=== PATIENT | male | born 1945 | race Caucasian/White ===

== ENCOUNTER → 2016-10-30 | Day surgery (SDC) | payer MEDICARE, OTHER ==
[~2016-10-30] VITALS: Ht 180.3 cm; Wt 95.3 kg
[~2016-10-30] MED LIST: ACET30TAB PO; ACETAMINOPH W/CODEINE #3 TAB UD PO PRN; ADUL81TA2 PO; ALLOPOW4 PO; ANOR1AER IN; AVOD0.5C PO; CIPR500T4 PO; COLA100C2 PO; CRESTOR PO; FISH120012 PO; FLEXARIL PO; GLYCOPYRROLATE INJ 0.2 MG/ML 2 ML VIAL As Ordered ONE; HYDROCHLORIZIDE PO; JANUVIA PO; K-TA10TA2 PO; LABETALOL HCL 100 MG/20 ML VIAL As Ordered ONE; LIDOCAINE W/EPINEPHRINE 1% 20ML VIAL As Ordered ONE; LISIPOW PO; LR 1,000 ML IV SCH; MAGNESIUM PO; METFORMIN PO; MIDAZOLAM INJ 2 MG/2 ML VIAL (J2250) As Ordered ONE; NEOSTIGMINE 1MG/ML 5 ML SYRINGE (J2710) As Ordered ONE; NIASPAN PO; ONDANSETRON 4MG/2ML VIAL (J2405) As Ordered ONE; ONDANSETRON 4MG/2ML VIAL (J2405) IV PRN; PERC5TAB6 PO; PERCOCET 5MG/325MG TAB PO PRN; PROPOFOL 200 MG/20 ML VIAL As Ordered ONE; ROCURONIUM BROMIDE 50 MG/5 ML VIAL As Ordered ONE; SENOKOT PO; SPIRIVA HANDIHALER INH; VENTAER INH; VIAG100T PO; VICO5TAB PO; dexameTHASONE 4 MG/ML 1ML VIAL (J1100) As Ordered ONE; fentaNYL 100 MCG/2 ML INJECTION (J3010) As Ordered ONE; fentaNYL 100 MCG/2 ML INJECTION (J3010) IV PRN
[2016-10-30 17:35] VITALS: BP 122/60
--- NOTE | 2016-10-31 19:41 | RO ---
DATE OF PROCEDURE: 10/30/2016 PREOPERATIVE DIAGNOSIS: Oral leukoplakia. POSTOPERATIVE DIAGNOSIS: Oral leukoplakia. OPERATIVE PROCEDURE: CO2 laser vaporization lesion left buccal area. SURGEON: Dr. Mode Covarrubias BUILDING MECHANIC: ANESTHESIA: FINDINGS: There was leukoplakia/erythroplasia in the buccal area on the right side, which extended a distance of 4 cm diameter and extended to the oral commissure on that side, the mucocutaneous border and then up to the upper and lower lip. 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 DESCRIPTION OF PROCEDURE: Under general anesthesia, an oral packing was placed. I did use drapes over the eyes and the face with wet drapes. Then, using a CO2 laser at a setting of 5 navarro, I vaporized the area. Patient tolerated the procedure well. The oral pack was removed. Patient was extubated and transferred to the recovery room in excellent condition.
== END | disposition home or self-care (01) ==
LOC: M SDC 09:03
PROVIDERS: ATTEND Otolaryngology
DX: K13.21 Leukoplakia of oral mucosa, including tongue (principal); I10 Essential (primary) hypertension; J44.9 Chronic obstructive pulmonary disease, unspecified; F17.210 Nicotine dependence, cigarettes, uncomplicated; E11.9 Type 2 diabetes mellitus without complications; Z79.82 Long term (current) use of aspirin; Z79.899 Other long term (current) drug therapy
CPT/HCPCS: 40820; J1100; J2250; J2405; J2710; J3010

== ENCOUNTER 2017-01-03 17:59 | Emergency (ER) | payer MEDICARE, OTHER ==
[~2017-01-03] VITALS: Ht 180.3 cm; Wt 95.3 kg
[~2017-01-03 17:59] MED LIST changes: -ACETAMINOPH W/CODEINE #3 TAB UD PO PRN; -GLYCOPYRROLATE INJ 0.2 MG/ML 2 ML VIAL As Ordered ONE; -LABETALOL HCL 100 MG/20 ML VIAL As Ordered ONE; -LIDOCAINE W/EPINEPHRINE 1% 20ML VIAL As Ordered ONE; -LR 1,000 ML IV SCH; -MIDAZOLAM INJ 2 MG/2 ML VIAL (J2250) As Ordered ONE; -NEOSTIGMINE 1MG/ML 5 ML SYRINGE (J2710) As Ordered ONE; -ONDANSETRON 4MG/2ML VIAL (J2405) As Ordered ONE; -ONDANSETRON 4MG/2ML VIAL (J2405) IV PRN; -PERCOCET 5MG/325MG TAB PO PRN; -PROPOFOL 200 MG/20 ML VIAL As Ordered ONE; -ROCURONIUM BROMIDE 50 MG/5 ML VIAL As Ordered ONE; -dexameTHASONE 4 MG/ML 1ML VIAL (J1100) As Ordered ONE; -fentaNYL 100 MCG/2 ML INJECTION (J3010) As Ordered ONE; -fentaNYL 100 MCG/2 ML INJECTION (J3010) IV PRN
[2017-01-03] MEDS ORDERED: FARX1TAB2 PO (18:10)
[2017-01-03] MEDS ORDERED: BAYE325T12 PO (18:10)
[2017-01-03] MEDS ORDERED: NS 1,000 ML IV ONE (20:30)
[2017-01-03] MEDS ORDERED: METOCLOPRAMIDE INJ 10MG/2ML VIAL (J2765) IV ONE (20:30)
[2017-01-03] MEDS ORDERED: ACETAMINOPHEN 325 MG TAB PO ONE (20:30)
[2017-01-03 21:02] LABS: BASO % 0.6 % (0.0-1.0); EOS # 0.2 K/mm3 (0.0-0.50); EOS % 2.9 % (0.0-3.0); LARGE UNSTAINED CELL # 0.2 K/mm3 (0.0-0.4); LARGE UNSTAINED CELL % 2.2 % (0.0-4.0); LYMPH # 2.5 K/mm3 (1.5-4.5); LYMPH % 28.1 % (24.0-44.0); MEAN CORPUSCULAR HEMOGLOBIN 31.3 pg (27.0-33.0); MEAN CORPUSCULAR VOLUME 92.1 fl (80.0-96.0); MONO # 0.5 K/mm3 (0.0-0.8); MONO % 6.6 % (0.0-5.0); NEUTROPHILS # 4.8 K/mm3 (1.8-7.7); NEUTROPHILS % 59.5 % (36.0-66.0); PLATELET COUNT, AUTOMATED 194 k/mm3 (150-450); RED CELL DISTRIBUTION WIDTH 14.5 % (11.5-14.5); WHITE BLOOD COUNT 8.1 K/mm3 (4.0-10.0)
[2017-01-03 21:11] LABS: INR 0.95
--- NOTE | 2017-01-03 21:23 | REP ---
Clinical: Headache . Comparison: 05/12/2015 . Findings: The ventricles, sulci, and cisterns are normal in position and appearance. Lamas-white differentiation is maintained. No acute intracranial hemorrhage, mass/mass effect, pathology or trauma/injury. No evidence for acute infarction. No extra-axial fluid collection. Calvarium is intact. Paranasal sinuses and mastoid air cells are clear. Impression: Normal noncontrast head CT. No evidence for acute intracranial pathology or trauma/injury. Signed by Jack Young MD 01/03/2017 09:14 P
[2017-01-03 21:31] LABS: ANION GAP 10 MEQ/L (8-16); BLOOD UREA NITROGEN 18 MG/DL (7-18); CALCIUM LEVEL 9.5 MG/DL (8.8-10.2); CARBON DIOXIDE LEVEL 28 MEQ/L (21-32); CHLORIDE LEVEL 100 MEQ/L (98-107); CREATININE FOR GFR 1.08 MG/DL (0.70-1.30); GLOMERULAR FILTRATION RATE > 60.0 (>49); GLUCOSE, FASTING 142 MG/DL (80-110); POTASSIUM SERUM 4.3 MEQ/L (3.5-5.1); SODIUM LEVEL 138 MEQ/L (136-145)
[2017-01-03] MEDS ORDERED: TETRACAINE 0.5% OPHTH SOLN 4ML OS ONE (22:00)
[2017-01-03] MEDS ORDERED: HYDROmorphone HCL 1 MG/ML SYRINGE (J1170) IV ONE (23:00)
[2017-01-03 23:13] LABS: ERYTHROCYTE SEDIMENTATION RATE 6 mm/hr (0-20)
[2017-01-03 23:47] VITALS: BP 118/68
== END 2017-01-03 23:52 | disposition home or self-care (01) ==
LOC: M ED 19:45
DX: R51 Headache (principal); H53.8 Other visual disturbances; E11.9 Type 2 diabetes mellitus without complications; I10 Essential (primary) hypertension; F17.210 Nicotine dependence, cigarettes, uncomplicated; Z88.5 Allergy status to narcotic agent; Z91.018 Allergy to other foods; Z79.899 Other long term (current) drug therapy; Z79.84 Long term (current) use of oral hypoglycemic drugs; Z79.82 Long term (current) use of aspirin
CPT/HCPCS: 70450; 80048; 85025; 85610; 85652; 85730; 96361; 96374; 96375; 99283; J1170; J2765

== ENCOUNTER → 2017-01-15 | Outpatient (REF) | payer MEDICARE, OTHER ==
[~2017-01-15] MED LIST changes: +BAYE325T12 PO; +FARX1TAB2 PO
== END ==
LOC: M SFHCCLAY 10:54
PROVIDERS: ATTEND Nurse Practitioner
DX: E11.9 Type 2 diabetes mellitus without complications (principal)

== ENCOUNTER → 2017-01-22 | Outpatient (REF) | payer MEDICARE, OTHER ==
[2017-01-22 12:07] LABS: ALBUMIN 4.4 GM/DL (3.2-5.2); ALBUMIN/GLOBULIN RATIO 1.38 (1.00-1.93); ALKALINE PHOSPHATASE 77 U/L (45-117); ALT/SGPT 23 U/L (12-78); ANION GAP 9 MEQ/L (8-16); AST/SGOT 66 U/L (15-37); BILIRUBIN,TOTAL 0.4 MG/DL (0.2-1.0); BLOOD UREA NITROGEN 19 MG/DL (7-18); CALCIUM LEVEL 9.5 MG/DL (8.8-10.2); CARBON DIOXIDE LEVEL 27 MEQ/L (21-32); CHLORIDE LEVEL 99 MEQ/L (98-107); CHOLESTEROL LEVEL 106 MG/DL (<200); CREATININE FOR GFR 1.05 MG/DL (0.70-1.30); GLOMERULAR FILTRATION RATE > 60.0 (>49); GLUCOSE, FASTING 194 MG/DL (80-110); POTASSIUM SERUM 4.2 MEQ/L (3.5-5.1); SODIUM LEVEL 135 MEQ/L (136-145); TOTAL PROTEIN 7.6 GM/DL (6.4-8.2); TRIGLYCERIDES LEVEL 166 MG/DL (<150); URIC ACID 5.3 MG/DL (3.5-7.2)
== END ==
LOC: M SFHCCLAY 07:23
PROVIDERS: ATTEND Nurse Practitioner
DX: E11.9 Type 2 diabetes mellitus without complications (principal); Z12.5 Encounter for screening for malignant neoplasm of prostate
CPT/HCPCS: 80053; 80061; 83036; 84550; G0103; G0463

== ENCOUNTER → 2017-04-24 | Outpatient (REF) | payer MEDICARE, OTHER ==
[~2017-04-24] MED LIST changes: -FARX1TAB2 PO; +FARX1TAB3 PO; +PERC5TAB12 PO; -PERC5TAB6 PO
[2017-04-24 12:39] LABS: ALBUMIN 4.2 GM/DL (3.2-5.2); ALBUMIN/GLOBULIN RATIO 1.27 (1.00-1.93); ALKALINE PHOSPHATASE 74 U/L (45-117); ALT/SGPT 30 U/L (12-78); ANION GAP 9 MEQ/L (8-16); AST/SGOT 49 U/L (15-37); BILIRUBIN,TOTAL 0.6 MG/DL (0.2-1.0); BLOOD UREA NITROGEN 21 MG/DL (7-18); CALCIUM LEVEL 9.6 MG/DL (8.8-10.2); CARBON DIOXIDE LEVEL 26 MEQ/L (21-32); CHLORIDE LEVEL 100 MEQ/L (98-107); CREATININE FOR GFR 1.06 MG/DL (0.70-1.30); GLOMERULAR FILTRATION RATE > 60.0 (>49); GLUCOSE, FASTING 177 MG/DL (80-110); POTASSIUM SERUM 4.4 MEQ/L (3.5-5.1); SODIUM LEVEL 135 MEQ/L (136-145); TOTAL PROTEIN 7.5 GM/DL (6.4-8.2)
== END ==
LOC: M SFHCCLAY 07:28
PROVIDERS: ATTEND Nurse Practitioner
DX: E11.9 Type 2 diabetes mellitus without complications (principal)
CPT/HCPCS: 80053; 83036; 94010; G0463

== ENCOUNTER → 2017-07-19 | Outpatient (REF) | payer MEDICARE, OTHER ==
[2017-07-19 14:29] LABS: ALBUMIN 4.1 GM/DL (3.2-5.2); ALBUMIN/GLOBULIN RATIO 1.28 (1.00-1.93); ALKALINE PHOSPHATASE 71 U/L (45-117); ALT/SGPT 27 U/L (12-78); ANION GAP 7 MEQ/L (8-16); AST/SGOT 35 U/L (15-37); BILIRUBIN,TOTAL 0.4 MG/DL (0.2-1.0); BLOOD UREA NITROGEN 14 MG/DL (7-18); CALCIUM LEVEL 9.3 MG/DL (8.8-10.2); CARBON DIOXIDE LEVEL 27 MEQ/L (21-32); CHLORIDE LEVEL 102 MEQ/L (98-107); CHOLESTEROL LEVEL 92 MG/DL (<200); CREATININE FOR GFR 0.95 MG/DL (0.70-1.30); GLOMERULAR FILTRATION RATE > 60.0 (>49); GLUCOSE, FASTING 168 MG/DL (80-110); POTASSIUM SERUM 4.3 MEQ/L (3.5-5.1); SODIUM LEVEL 136 MEQ/L (136-145); TOTAL PROTEIN 7.3 GM/DL (6.4-8.2); TRIGLYCERIDES LEVEL 96 MG/DL (<150)
== END ==
LOC: M SFHCCLAY 07:33
PROVIDERS: ATTEND Nurse Practitioner
DX: E11.9 Type 2 diabetes mellitus without complications (principal)

== ENCOUNTER 2017-09-20 12:37 | Day surgery (SDC) | payer MEDICARE, OTHER ==
[~2017-09-20] VITALS: Ht 180.3 cm; Wt 93.9 kg
[2017-09-20] MEDS ORDERED: LR 1,000 ML IV ONE (13:00)
[2017-09-20] MEDS ORDERED: MIDAZOLAM INJ 2 MG/2 ML VIAL (J2250) As Ordered ONE (14:48)
[2017-09-20] MEDS ORDERED: fentaNYL 100 MCG/2 ML INJECTION (J3010) As Ordered ONE (14:48)
[2017-09-20] MEDS ORDERED: ONDANSETRON 4MG/2ML VIAL (J2405) As Ordered ONE (14:48)
[2017-09-20] MEDS ORDERED: LIDOCAINE 2% INJ 100 MG/5 ML SDV (FOR ANES.) As Ordered ONE (14:48)
[2017-09-20] MEDS ORDERED: PROPOFOL 200 MG/20 ML VIAL As Ordered ONE (14:48)
[2017-09-20] MEDS ORDERED: METOCLOPRAMIDE INJ 10MG/2ML VIAL (J2765) As Ordered ONE (14:48)
[2017-09-20] MEDS ORDERED: LR 1,000 ML IV SCH ×2 (15:00→15:15)
[2017-09-20] MEDS ORDERED: NORCO, ANEXSIA 5/325MG TABLET (HYDROcodone/ACETAMINOPHEN) PO PRN (15:15)
[2017-09-20] MEDS ORDERED: ONDANSETRON 4MG/2ML VIAL (J2405) IV PRN (15:15)
[2017-09-20] MEDS ORDERED: MEPERIDINE INJ 25 MG/ML VIAL (J2175) IV PRN (15:15)
[2017-09-20] MEDS ORDERED: METOCLOPRAMIDE INJ 10MG/2ML VIAL (J2765) IV PRN (15:15)
[2017-09-20] MEDS ORDERED: fentaNYL 100 MCG/2 ML INJECTION (J3010) IV PRN (15:15)
[2017-09-20] MEDS ORDERED: PERCOCET 5MG/325MG TAB PO PRN (15:15)
[2017-09-20 16:20] VITALS: BP 126/65
--- NOTE | 2017-09-21 11:09 | RO ---
DATE OF PROCEDURE: 09/20/2017 PREPROCEDURE DIAGNOSIS: Oral leukoplakia. POSTPROCEDURE DIAGNOSIS: Oral leukoplakia. PROCEDURE: CO2 laser treatment leukoplakia. SURGEON: Dr. Mode Covarrubias. SUPERVISOR PUMPING: ANESTHESIA: General. FINDINGS: There was a leukoplakia in the buccal area. There was erythroplasia around the corner of the mouth on the left side, and on that left side, over the alveolus posteriorly, in the retromolar area. There was some erythroplasia in the gingiva buccal itself that is on the right side. DESCRIPTION OF PROCEDURE: Under general anesthesia with the patient intubated with a laser 2, the patient was draped in the usual manner as for laser. With the CO2 laser on the setting of 10 navarro continuous, vaporized these areas. The patient tolerated the procedure well. No bleeding. The patient was extubated and transferred to the recovery room in excellent condition.
== END 2017-09-20 16:21 | disposition home or self-care (01) ==
LOC: M SDC 12:37
PROVIDERS: ATTEND Otolaryngology
DX: K13.21 Leukoplakia of oral mucosa, including tongue (principal); I10 Essential (primary) hypertension; E11.9 Type 2 diabetes mellitus without complications; E78.5 Hyperlipidemia, unspecified; M10.9 Gout, unspecified; J44.9 Chronic obstructive pulmonary disease, unspecified; M19.90 Unspecified osteoarthritis, unspecified site; Z79.899 Other long term (current) drug therapy; Z79.82 Long term (current) use of aspirin; Z79.84 Long term (current) use of oral hypoglycemic drugs; F17.210 Nicotine dependence, cigarettes, uncomplicated; Z88.5 Allergy status to narcotic agent; Z91.018 Allergy to other foods
CPT/HCPCS: 40820; J2250; J2405; J2765; J3010

== ENCOUNTER → 2017-10-22 | Outpatient (REF) | payer MEDICARE, OTHER ==
[2017-10-22 11:55] LABS: ALBUMIN 4.2 GM/DL (3.2-5.2); ALBUMIN/GLOBULIN RATIO 1.14 (1.00-1.93); ALKALINE PHOSPHATASE 77 U/L (45-117); ALT/SGPT 25 U/L (12-78); ANION GAP 8 MEQ/L (8-16); AST/SGOT 50 U/L (7-37); BILIRUBIN,TOTAL 0.6 MG/DL (0.2-1.0); BLOOD UREA NITROGEN 16 MG/DL (7-18); CALCIUM LEVEL 9.5 MG/DL (8.8-10.2); CARBON DIOXIDE LEVEL 27 MEQ/L (21-32); CHLORIDE LEVEL 100 MEQ/L (98-107); CHOLESTEROL LEVEL 126 MG/DL (<200); CHOLESTEROL RISK RATIO 3.705 (<5); CREATININE FOR GFR 1.04 MG/DL (0.70-1.30); GLOMERULAR FILTRATION RATE > 60.0 (>49); GLUCOSE, FASTING 204 MG/DL (80-110); HDL CHOLESTEROL 34 MG/DL (>40); LDL CHOLESTEROL 43.2 MG/DL (<100); NON-HDL-C 92 MG/DL; POTASSIUM SERUM 4.6 MEQ/L (3.5-5.1); SODIUM LEVEL 135 MEQ/L (136-145); TOTAL PROTEIN 7.9 GM/DL (6.4-8.2); TRIGLYCERIDES LEVEL 244 MG/DL (<150)
[2017-10-22 14:01] LABS: ESTIMATED AVERAGE GLUCOSE 192 MG/DL (60-110); HEMOGLOBIN A1c 8.3 %
== END ==
LOC: M SFHCCLAY 07:59
DX: E11.9 Type 2 diabetes mellitus without complications (principal)
CPT/HCPCS: 80053

== ENCOUNTER 2017-11-02 11:04 | Inpatient (IN) | payer MEDICARE, OTHER ==
[2017-11-02 11:37] LABS: BASO # 0.1 10^3/uL (0.0-0.2); BASO % 0.3 % (0.0-1.0); EOS # 0.2 10^3/uL (0.0-0.50); EOS % 0.7 % (0.0-3.0); HEMATOCRIT 49.2 % (42.0-52.0); HEMOGLOBIN 16.9 g/dl (14.0-18.0); IMMATURE GRANULOCYTE # 0.1 10^3/uL (0-0); IMMATURE GRANULOCYTE % 0.6 % (0-0); LYMPH # 1.6 10^3/uL (1.5-4.5); LYMPH % 6.5 % (24.0-44.0); MEAN CORPUSCULAR HEMOGLOBIN 31.1 pg (27.0-33.0); MEAN CORPUSCULAR HGB CONC 34.3 g/dl (32.0-36.5); MEAN CORPUSCULAR VOLUME 90.4 fl (80.0-96.0); MONO # 1.2 10^3/uL (0.0-0.8); MONO % 5.2 % (0.0-5.0); NEUTROPHILS # 20.7 10^3/uL (1.8-7.7); NEUTROPHILS % 86.7 % (36.0-66.0); PLATELET COUNT, AUTOMATED 218 10^3/uL (150-450); RED BLOOD COUNT 5.44 10^6/uL (4.30-6.10); RED CELL DISTRIBUTION WIDTH 13.8 % (11.5-14.5); WHITE BLOOD COUNT 23.9 10^3/uL (4.0-10.0)
[2017-11-02] MEDS: NS 1,000 ML IV ×3 (11:54→22:43)
[2017-11-02 11:56] LABS: INR 0.94; PROTHROMBIN TIME 12.7 SECONDS (12.4-14.5)
[2017-11-02 12:05] LABS: ALBUMIN 3.8 GM/DL (3.2-5.2); ALBUMIN/GLOBULIN RATIO 1.03 (1.00-1.93); ALKALINE PHOSPHATASE 66 U/L (45-117); ALT/SGPT 22 U/L (12-78); ANION GAP 10 MEQ/L (8-16); AST/SGOT 57 U/L (7-37); BILIRUBIN,DIRECT < 0.1 MG/DL (0.0-0.2); BILIRUBIN,TOTAL 0.3 MG/DL (0.2-1.0); BLOOD UREA NITROGEN 19 MG/DL (7-18); CALCIUM LEVEL 9.1 MG/DL (8.8-10.2); CARBON DIOXIDE LEVEL 24 MEQ/L (21-32); CHLORIDE LEVEL 100 MEQ/L (98-107); CK-MB VALUE MASS 3.2 NG/ML (0.0-3.6); CPK CREATINE PHOSPHOKINASE 119 U/L (39-308); GLOMERULAR FILTRATION RATE > 60.0 (>49); GLUCOSE, FASTING 203 MG/DL (80-110); LIPASE 104 U/L (73-393); MB/CK RELATIVE INDEX 2.68 (< OR =4); POTASSIUM SERUM 4.2 MEQ/L (3.5-5.1); SODIUM LEVEL 134 MEQ/L (136-145); TOTAL PROTEIN 7.5 GM/DL (6.4-8.2); TROPONIN I < 0.02 NG/ML (< 0.10)
[2017-11-02] MEDS ORDERED: ISOVUE-370 76% 100ML VIAL (Q9967) As Ordered (12:12)
[2017-11-02] MEDS: CIPROFLOXACIN 400 MG in APPROPRIATE DILUENT 1 EA IV (13:50)
[2017-11-02] MEDS: KETOROLAC 30 MG/ML VIAL (J1885) IV (14:29)
[2017-11-02] MEDS: metroNIDAZOLE 500 MG in APPROPRIATE DILUENT 1 EA IV ×2 (15:17→22:51)
[2017-11-02] MEDS ORDERED: ACETAMINOPHEN TAB 650MG DOSE (2X325MG) PO (17:15)
[2017-11-02] MEDS ORDERED: IPRATROPIUM 0.5MG/ALBUTEROL 2.5MG INH SOL UD 3ML (DUONEB)(J7620) NEB (17:15)
[2017-11-02] MEDS ORDERED: ONDANSETRON 4MG/2ML VIAL (J2405) IV (17:15)
[2017-11-02] MEDS ORDERED: GLUCAGON FOR INJ 1 MG VIAL (J1610) SC (17:15)
[2017-11-02] MEDS ORDERED: DEXTROSE 50% 50 ML SYRINGE IV (17:15)
[2017-11-02] MEDS ORDERED: CYCLOBENZAPRINE 10 MG TAB PO (17:15)
[2017-11-02] MEDS ORDERED: GLUCOSE 4 GM CHEW TABLET PO (17:15)
[2017-11-02] MEDS: HumaLOG INSULIN (NovoLOG) PER UNIT SC ×2 (17:30→22:50)
[2017-11-02 17:52] LABS: REASON FOR REVIEW COMPREHENSIVE REVIEW; SLIDE REVIEW Report; SOURCE PERIPHERAL SMEAR
[2017-11-02] MEDS: DOCUSATE SODIUM 100 MG CAP PO (22:50)
[2017-11-03] MEDS: CIPROFLOXACIN 400 MG in APPROPRIATE DILUENT 1 EA IV ×2 (01:51→14:28)
[2017-11-03] MEDS: KETOROLAC 30 MG/ML VIAL (J1885) IV ×3 (01:52→20:33)
[2017-11-03 02:13] LABS: BEDSIDE GLUCOSE 262 MG/DL (80-115)
[2017-11-03] MEDS: metroNIDAZOLE 500 MG in APPROPRIATE DILUENT 1 EA IV ×3 (06:02→23:16)
[2017-11-03 06:46] LABS: BASO % 0.5 % (0.0-1.0); EOS # 0.3 10^3/uL (0.0-0.50); EOS % 4.1 % (0.0-3.0); HEMATOCRIT 37.9 % (42.0-52.0); IMMATURE GRANULOCYTE % 0.2 % (0-0); LYMPH # 1.4 10^3/uL (1.5-4.5); LYMPH % 17.7 % (24.0-44.0); MEAN CORPUSCULAR HEMOGLOBIN 31.5 pg (27.0-33.0); MEAN CORPUSCULAR VOLUME 92.4 fl (80.0-96.0); MONO # 0.5 10^3/uL (0.0-0.8); MONO % 6.2 % (0.0-5.0); NEUTROPHILS # 5.7 10^3/uL (1.8-7.7); NEUTROPHILS % 71.3 % (36.0-66.0); PLATELET COUNT, AUTOMATED 151 10^3/uL (150-450); RED CELL DISTRIBUTION WIDTH 13.6 % (11.5-14.5)
[2017-11-03 06:53] LABS: HEMOGLOBIN 12.9 g/dl (14.0-18.0)
[2017-11-03 07:08] LABS: ALBUMIN 3.3 GM/DL (3.2-5.2); ALBUMIN/GLOBULIN RATIO 1.14 (1.00-1.93); ALKALINE PHOSPHATASE 54 U/L (45-117); ALT/SGPT 19 U/L (12-78); ANION GAP 6 MEQ/L (8-16); AST/SGOT 42 U/L (7-37); BILIRUBIN,TOTAL 0.4 MG/DL (0.2-1.0); BLOOD UREA NITROGEN 17 MG/DL (7-18); CALCIUM LEVEL 8.3 MG/DL (8.8-10.2); CARBON DIOXIDE LEVEL 28 MEQ/L (21-32); CHLORIDE LEVEL 102 MEQ/L (98-107); CREATININE FOR GFR 1.08 MG/DL (0.70-1.30); GLOMERULAR FILTRATION RATE > 60.0 (>49); GLUCOSE, FASTING 187 MG/DL (80-110); SODIUM LEVEL 136 MEQ/L (136-145); TOTAL PROTEIN 6.2 GM/DL (6.4-8.2)
[2017-11-03] MEDS: IPRATROPIUM 0.5MG/ALBUTEROL 2.5MG INH SOL UD 3ML (DUONEB)(J7620) NEB ×3 (07:51→20:00)
[2017-11-03] MEDS: TIOTROPIUM INHALER/CAPSULE (SPIRIVA) INH (07:51)
[2017-11-03] MEDS: HumaLOG INSULIN (NovoLOG) PER UNIT SC ×4 (08:32→21:00)
[2017-11-03] MEDS: ROSUVASTATIN 10 MG TAB (CRESTOR) PO (08:43)
[2017-11-03] MEDS: LISINOPRIL 5 MG TAB PO (08:43)
[2017-11-03] MEDS: ALLOPURINOL 300 MG TAB PO (08:43)
[2017-11-03] MEDS: ASPIRIN ENTERIC 325 MG TAB PO (08:43)
[2017-11-03] MEDS: DOCUSATE SODIUM 100 MG CAP PO ×2 (08:43→20:32)
[2017-11-03] MEDS: PANTOPRAZOLE 40MG TAB (PROTONIX) PO (08:43)
[2017-11-03] MEDS: hydroCHLOROthiazide 25 MG TAB PO (08:44)
[2017-11-03] MEDS: NS 1,000 ML IV ×3 (11:52→23:16)
[2017-11-03 21:30] LABS: BEDSIDE GLUCOSE 135 MG/DL (80-115)
[2017-11-03 21:30] LABS: BEDSIDE GLUCOSE 281 MG/DL (80-115)
[2017-11-03 21:30] LABS: BEDSIDE GLUCOSE 172 MG/DL (80-115)
[2017-11-04] MEDS: IPRATROPIUM 0.5MG/ALBUTEROL 2.5MG INH SOL UD 3ML (DUONEB)(J7620) NEB ×4 (02:00→22:24)
[2017-11-04] MEDS: CIPROFLOXACIN 400 MG in APPROPRIATE DILUENT 1 EA IV ×2 (02:29→14:27)
[2017-11-04] MEDS: metroNIDAZOLE 500 MG in APPROPRIATE DILUENT 1 EA IV ×3 (06:08→22:42)
[2017-11-04 06:33] LABS: BASO % 0.5 % (0.0-1.0); EOS # 0.4 10^3/uL (0.0-0.50); EOS % 4.8 % (0.0-3.0); HEMATOCRIT 39.1 % (42.0-52.0); HEMOGLOBIN 13.2 g/dl (14.0-18.0); IMMATURE GRANULOCYTE % 0.4 % (0-0); LYMPH # 1.5 10^3/uL (1.5-4.5); LYMPH % 19.6 % (24.0-44.0); MEAN CORPUSCULAR HEMOGLOBIN 31.1 pg (27.0-33.0); MEAN CORPUSCULAR HGB CONC 33.8 g/dl (32.0-36.5); MEAN CORPUSCULAR VOLUME 92.2 fl (80.0-96.0); MONO # 0.5 10^3/uL (0.0-0.8); MONO % 6.6 % (0.0-5.0); NEUTROPHILS # 5.2 10^3/uL (1.8-7.7); NEUTROPHILS % 68.1 % (36.0-66.0); PLATELET COUNT, AUTOMATED 149 10^3/uL (150-450); RED BLOOD COUNT 4.24 10^6/uL (4.30-6.10); RED CELL DISTRIBUTION WIDTH 13.7 % (11.5-14.5); WHITE BLOOD COUNT 7.7 10^3/uL (4.0-10.0)
[2017-11-04 06:54] LABS: ALBUMIN 3.3 GM/DL (3.2-5.2); ALBUMIN/GLOBULIN RATIO 1.03 (1.00-1.93); ALKALINE PHOSPHATASE 56 U/L (45-117); ALT/SGPT 18 U/L (12-78); ANION GAP 7 MEQ/L (8-16); AST/SGOT 46 U/L (7-37); BILIRUBIN,TOTAL 0.4 MG/DL (0.2-1.0); BLOOD UREA NITROGEN 9 MG/DL (7-18); CALCIUM LEVEL 8.5 MG/DL (8.8-10.2); CARBON DIOXIDE LEVEL 26 MEQ/L (21-32); CHLORIDE LEVEL 108 MEQ/L (98-107); CREATININE FOR GFR 0.98 MG/DL (0.70-1.30); GLOMERULAR FILTRATION RATE > 60.0 (>49); GLUCOSE, FASTING 180 MG/DL (80-110); POTASSIUM SERUM 4.2 MEQ/L (3.5-5.1); SODIUM LEVEL 141 MEQ/L (136-145); TOTAL PROTEIN 6.5 GM/DL (6.4-8.2)
[2017-11-04] MEDS: HumaLOG INSULIN (NovoLOG) PER UNIT SC ×4 (07:56→20:55)
[2017-11-04] MEDS: ROSUVASTATIN 10 MG TAB (CRESTOR) PO (08:16)
[2017-11-04] MEDS: ALLOPURINOL 300 MG TAB PO (08:16)
[2017-11-04] MEDS: hydroCHLOROthiazide 25 MG TAB PO (08:16)
[2017-11-04] MEDS: ASPIRIN ENTERIC 325 MG TAB PO (08:16)
[2017-11-04] MEDS: LISINOPRIL 5 MG TAB PO (08:16)
[2017-11-04] MEDS: PANTOPRAZOLE 40MG TAB (PROTONIX) PO (08:17)
[2017-11-04] MEDS: DOCUSATE SODIUM 100 MG CAP PO ×2 (08:17→19:56)
[2017-11-04] MEDS: TIOTROPIUM INHALER/CAPSULE (SPIRIVA) INH (08:20)
[2017-11-04] MEDS: KETOROLAC 30 MG/ML VIAL (J1885) IV (18:29)
[2017-11-04 19:13] LABS: BEDSIDE GLUCOSE 212 MG/DL (80-115)
[2017-11-04 23:32] LABS: BEDSIDE GLUCOSE 233 MG/DL (80-115)
[2017-11-04 23:32] LABS: BEDSIDE GLUCOSE 163 MG/DL (80-115)
[2017-11-05] MEDS: IPRATROPIUM 0.5MG/ALBUTEROL 2.5MG INH SOL UD 3ML (DUONEB)(J7620) NEB ×2 (02:00→07:18)
[2017-11-05] MEDS: CIPROFLOXACIN 400 MG in APPROPRIATE DILUENT 1 EA IV (02:14)
[2017-11-05 06:38] LABS: BEDSIDE GLUCOSE 214 MG/DL (80-115)
[2017-11-05] MEDS: HumaLOG INSULIN (NovoLOG) PER UNIT SC (06:41)
[2017-11-05] MEDS: metroNIDAZOLE 500 MG in APPROPRIATE DILUENT 1 EA IV (06:42)
[2017-11-05 07:14] LABS: BASO % 0.4 % (0.0-1.0); EOS # 0.3 10^3/uL (0.0-0.50); EOS % 4.2 % (0.0-3.0); HEMATOCRIT 37.1 % (42.0-52.0); HEMOGLOBIN 12.6 g/dl (14.0-18.0); IMMATURE GRANULOCYTE % 0.4 % (0-0); LYMPH # 1.4 10^3/uL (1.5-4.5); LYMPH % 17.2 % (24.0-44.0); MEAN CORPUSCULAR HEMOGLOBIN 31.3 pg (27.0-33.0); MEAN CORPUSCULAR VOLUME 92.1 fl (80.0-96.0); MONO # 0.5 10^3/uL (0.0-0.8); MONO % 6.8 % (0.0-5.0); NEUTROPHILS # 5.6 10^3/uL (1.8-7.7); PLATELET COUNT, AUTOMATED 145 10^3/uL (150-450); RED BLOOD COUNT 4.03 10^6/uL (4.30-6.10); RED CELL DISTRIBUTION WIDTH 13.5 % (11.5-14.5); WHITE BLOOD COUNT 7.9 10^3/uL (4.0-10.0)
[2017-11-05] MEDS: TIOTROPIUM INHALER/CAPSULE (SPIRIVA) INH (07:18)
[2017-11-05 07:39] LABS: ALBUMIN 3.4 GM/DL (3.2-5.2); ALBUMIN/GLOBULIN RATIO 1.17 (1.00-1.93); ALKALINE PHOSPHATASE 53 U/L (45-117); ALT/SGPT 28 U/L (12-78); ANION GAP 6 MEQ/L (8-16); AST/SGOT 72 U/L (7-37); BILIRUBIN,TOTAL 0.2 MG/DL (0.2-1.0); BLOOD UREA NITROGEN 13 MG/DL (7-18); CALCIUM LEVEL 8.4 MG/DL (8.8-10.2); CARBON DIOXIDE LEVEL 25 MEQ/L (21-32); CHLORIDE LEVEL 107 MEQ/L (98-107); CREATININE FOR GFR 0.99 MG/DL (0.70-1.30); GLOMERULAR FILTRATION RATE > 60.0 (>49); GLUCOSE, FASTING 203 MG/DL (80-110); SODIUM LEVEL 138 MEQ/L (136-145); TOTAL PROTEIN 6.3 GM/DL (6.4-8.2)
[2017-11-05] MEDS: ASPIRIN ENTERIC 325 MG TAB PO (08:38)
[2017-11-05] MEDS: PANTOPRAZOLE 40MG TAB (PROTONIX) PO (08:39)
[2017-11-05] MEDS: hydroCHLOROthiazide 25 MG TAB PO (08:39)
[2017-11-05] MEDS: ALLOPURINOL 300 MG TAB PO (08:39)
[2017-11-05] MEDS: LISINOPRIL 5 MG TAB PO (08:39)
[2017-11-05] MEDS: DOCUSATE SODIUM 100 MG CAP PO (08:39)
[2017-11-05] MEDS: ROSUVASTATIN 10 MG TAB (CRESTOR) PO (08:39)
[2017-11-05 11:21] LABS: HEPATITIS B SURFACE ANTIBODY NEGATIVE (POSITIVE)
[2017-11-05 11:31] LABS: HEPATITIS B SURFACE ANTIGEN NEGATIVE (NEGATIVE)
[2017-11-05 12:00] LABS: HEPATITIS C VIRUS ABY INDEX 0.1 INDEX (<0.8)
== END 2017-11-05 09:12 | disposition home or self-care (01) | DRG 392 ==
LOC: M PED 11-04 21:50 → M ED 11:04 → M ED INP 19:21 → M MS5PR 22:03
PROVIDERS: Hospitalist
DX: A08.4 Viral intestinal infection, unspecified (principal); J44.9 Chronic obstructive pulmonary disease, unspecified; E11.9 Type 2 diabetes mellitus without complications; I10 Essential (primary) hypertension; M10.9 Gout, unspecified; E78.5 Hyperlipidemia, unspecified; Z87.442 Personal history of urinary calculi; J84.10 Pulmonary fibrosis, unspecified; I27.20 Pulmonary hypertension, unspecified; Z79.899 Other long term (current) drug therapy; Z79.82 Long term (current) use of aspirin; Z88.5 Allergy status to narcotic agent; Z91.018 Allergy to other foods; F17.200 Nicotine dependence, unspecified, uncomplicated; H92.02 Otalgia, left ear

== ENCOUNTER → 2017-11-19 | Outpatient (CLI) | payer MEDICARE, OTHER ==
[2017-11-19 12:38] LABS: BLOOD UREA NITROGEN 17 MG/DL (7-18)
[2017-11-19 12:38] LABS: CREATININE FOR GFR 1.03 MG/DL (0.70-1.30); GLOMERULAR FILTRATION RATE > 60.0 (>42)
== END ==
LOC: M LAB 11:13
DX: A04.8 Other specified bacterial intestinal infections (principal)
CPT/HCPCS: 82565

== ENCOUNTER → 2017-11-20 | Outpatient (REF) | payer MEDICARE, OTHER ==
[2017-11-20 13:21] LABS: ALBUMIN 4.3 GM/DL (3.2-5.2); ALKALINE PHOSPHATASE 70 U/L (45-117); ALT/SGPT 28 U/L (12-78); ANION GAP 9 MEQ/L (8-16); AST/SGOT 82 U/L (7-37); BILIRUBIN,TOTAL 0.4 MG/DL (0.2-1.0); BLOOD UREA NITROGEN 17 MG/DL (7-18); CALCIUM LEVEL 9.7 MG/DL (8.8-10.2); CARBON DIOXIDE LEVEL 29 MEQ/L (21-32); CHLORIDE LEVEL 96 MEQ/L (98-107); CREATININE FOR GFR 1.02 MG/DL (0.70-1.30); GLOMERULAR FILTRATION RATE > 60.0 (>42); GLUCOSE, FASTING 185 MG/DL (70-100); POTASSIUM SERUM 4.6 MEQ/L (3.5-5.1); SODIUM LEVEL 134 MEQ/L (136-145); TOTAL PROTEIN 7.6 GM/DL (6.4-8.2)
== END ==
LOC: M SFHCCLAY 07:51
DX: R79.89 Other specified abnormal findings of blood chemistry (principal)
CPT/HCPCS: 80053

== ENCOUNTER → 2017-11-23 | Outpatient (CLI) | payer MEDICARE, OTHER ==
[~2017-11-23] MED LIST changes: -ACET30TAB PO; -ADUL81TA2 PO; -ALLOPOW4 PO; -ANOR1AER IN; -AVOD0.5C PO; -BAYE325T12 PO; -CIPR500T4 PO; -COLA100C2 PO; -CRESTOR PO; -FARX1TAB3 PO; -FISH120012 PO; -FLEXARIL PO; +GLUCAGON FOR INJ 1 MG VIAL (J1610) As Ordered; -HYDROCHLORIZIDE PO; +ISOVUE-370 76% 100ML VIAL (Q9967) As Ordered; -JANUVIA PO; -K-TA10TA2 PO; -LISIPOW PO; -MAGNESIUM PO; -METFORMIN PO; -NIASPAN PO; -PERC5TAB12 PO; -SENOKOT PO; -SPIRIVA HANDIHALER INH; -VENTAER INH; -VIAG100T PO; -VICO5TAB PO; +VoLumen 0.1% SUSPENSION 450ML BOTTLE As Ordered
== END ==
LOC: M RAD 09:51
DX: A04.8 Other specified bacterial intestinal infections (principal); K52.9 Noninfective gastroenteritis and colitis, unspecified; R93.3 Abnormal findings on diagnostic imaging of other parts of digestive tract
CPT/HCPCS: Q9967

== ENCOUNTER 2017-12-04 09:54 | Day surgery (SDC) | payer MEDICARE, OTHER ==
[2017-12-04] MEDS: NS 1,000 ML IV (11:15)
[2017-12-04] MEDS ORDERED: PROPOFOL 200 MG/20 ML VIAL As Ordered (11:40)
[2017-12-04] MEDS ORDERED: LIDOCAINE 2% INJ 100 MG/5 ML SDV (FOR ANES.) As Ordered (11:54)
== END 2017-12-04 12:44 | disposition home or self-care (01) ==
LOC: M OPP 09:54
DX: Z12.11 Encounter for screening for malignant neoplasm of colon (principal); Z86.010 Personal history of colon polyps; Z87.19 Personal history of other diseases of the digestive system; K57.30 Diverticulosis of large intestine without perforation or abscess without bleeding; K64.8 Other hemorrhoids; K55.20 Angiodysplasia of colon without hemorrhage; I10 Essential (primary) hypertension; E78.5 Hyperlipidemia, unspecified; E11.9 Type 2 diabetes mellitus without complications; M19.90 Unspecified osteoarthritis, unspecified site; J44.9 Chronic obstructive pulmonary disease, unspecified; Z87.442 Personal history of urinary calculi; F17.210 Nicotine dependence, cigarettes, uncomplicated; Z88.5 Allergy status to narcotic agent; Z91.018 Allergy to other foods; Z79.82 Long term (current) use of aspirin; Z79.899 Other long term (current) drug therapy; Z79.84 Long term (current) use of oral hypoglycemic drugs
CPT/HCPCS: G0105

== ENCOUNTER → 2018-03-08 | Outpatient (REF) | payer MEDICARE, OTHER ==
[2018-03-08 11:43] LABS: BASO # 0.1 10^3/uL (0.0-0.2); BASO % 0.6 % (0.0-1.0); EOS # 0.2 10^3/uL (0.0-0.50); EOS % 1.8 % (0.0-3.0); HEMATOCRIT 47.5 % (42.0-52.0); HEMOGLOBIN 16.2 g/dl (13.5-17.5); IMMATURE GRANULOCYTE % 0.2 % (0-3.0); LYMPH # 1.6 10^3/uL (1.5-4.5); LYMPH % 17.7 % (24.0-44.0); MEAN CORPUSCULAR HEMOGLOBIN 31.5 pg (27.0-33.0); MEAN CORPUSCULAR HGB CONC 34.1 g/dl (32.0-36.5); MEAN CORPUSCULAR VOLUME 92.2 fl (80.0-96.0); MONO # 0.6 10^3/uL (0.0-0.8); MONO % 6.7 % (0.0-5.0); NEUTROPHILS # 6.6 10^3/uL (1.8-7.7); PLATELET COUNT, AUTOMATED 211 10^3/uL (150-450); RED BLOOD COUNT 5.15 10^6/uL (4.30-6.10); RED CELL DISTRIBUTION WIDTH 14.1 % (11.5-14.5)
[2018-03-08 12:28] LABS: C REACTIVE PROTEIN QUANTITATIV 0.97 MG/DL (0.00-0.30); RHEUMATOID FACTOR QUANT < 10.0 IU/ML (<15.0)
[2018-03-08 12:28] LABS: URIC ACID 4.3 MG/DL (3.5-7.2)
[2018-03-08 13:00] LABS: ERYTHROCYTE SEDIMENTATION RATE 8 mm/hr (0-20)
[2018-03-09 14:10] LABS: ANTINUCLEAR ANTIBODIES DIRECT Negative (Negative)
== END ==
LOC: M LABDRAW1 09:23
DX: M48.02 Spinal stenosis, cervical region (principal)
CPT/HCPCS: 84550

== ENCOUNTER → 2018-03-18 | Outpatient (REF) | payer MEDICARE, OTHER ==
[2018-03-18 15:08] LABS: ALBUMIN 4.4 GM/DL (3.2-5.2); ANION GAP 10 MEQ/L (8-16); BLOOD UREA NITROGEN 22 MG/DL (7-18); CALCIUM LEVEL 9.5 MG/DL (8.8-10.2); CARBON DIOXIDE LEVEL 25 MEQ/L (21-32); CHLORIDE LEVEL 100 MEQ/L (98-107); CREATININE FOR GFR 1.11 MG/DL (0.70-1.30); GLOMERULAR FILTRATION RATE > 60.0 (>42); GLUCOSE, FASTING 123 MG/DL (70-100); PHOSPHORUS LEVEL 3.6 MG/DL (2.5-4.9); POTASSIUM SERUM 4.4 MEQ/L (3.5-5.1); SODIUM LEVEL 135 MEQ/L (136-145)
[2018-03-20 00:07] LABS: Lyme Disease IgG/IgM Antibodie <0.91 ISR (0.00-0.90); Lyme Disease IgM Ab Quantitati <0.80 index (0.00-0.79)
== END ==
LOC: M LABDRAW1 14:23
DX: M16.12 Unilateral primary osteoarthritis, left hip (principal)
CPT/HCPCS: 80069

== ENCOUNTER → 2018-04-23 | Outpatient (CLI) | payer MEDICARE, OTHER ==
[2018-04-23 10:45] LABS: HEMATOCRIT 47.3 % (42.0-52.0); MEAN CORPUSCULAR HEMOGLOBIN 30.9 pg (27.0-33.0); MEAN CORPUSCULAR HGB CONC 33.8 g/dl (32.0-36.5); MEAN CORPUSCULAR VOLUME 91.3 fl (80.0-96.0); PLATELET COUNT, AUTOMATED 186 10^3/uL (150-450); RED BLOOD COUNT 5.18 10^6/uL (4.30-6.10); RED CELL DISTRIBUTION WIDTH 13.8 % (11.5-14.5); WHITE BLOOD COUNT 8.4 10^3/uL (4.0-10.0)
[2018-04-23 10:55] LABS: INR 0.98; PROTHROMBIN TIME 13.1 SECONDS (12.1-14.4)
[2018-04-23 11:19] LABS: ERYTHROCYTE SEDIMENTATION RATE 7 mm/hr (0-20)
[2018-04-23 11:24] LABS: ALBUMIN 4.3 GM/DL (3.2-5.2); ALBUMIN/GLOBULIN RATIO 1.26 (1.00-1.93); ALKALINE PHOSPHATASE 76 U/L (45-117); ALT/SGPT 25 U/L (12-78); ANION GAP 10 MEQ/L (8-16); AST/SGOT 64 U/L (7-37); BILIRUBIN,TOTAL 0.4 MG/DL (0.2-1.0); BLOOD UREA NITROGEN 20 MG/DL (7-18); CALCIUM LEVEL 9.3 MG/DL (8.8-10.2); CARBON DIOXIDE LEVEL 25 MEQ/L (21-32); CHLORIDE LEVEL 101 MEQ/L (98-107); CREATININE FOR GFR 1.14 MG/DL (0.70-1.30); GLOMERULAR FILTRATION RATE > 60.0 (>42); GLUCOSE, FASTING 150 MG/DL (70-100); POTASSIUM SERUM 4.5 MEQ/L (3.5-5.1); SODIUM LEVEL 136 MEQ/L (136-145); TOTAL PROTEIN 7.7 GM/DL (6.4-8.2)
== END ==
LOC: M ADMPAT 09:29
DX: Z01.818 Encounter for other preprocedural examination (principal); M16.12 Unilateral primary osteoarthritis, left hip
CPT/HCPCS: 71046

== ENCOUNTER → 2018-04-24 | Outpatient (REF) | payer MEDICARE, OTHER ==
[2018-04-24 11:57] LABS: ANION GAP 8 MEQ/L (8-16); BLOOD UREA NITROGEN 20 MG/DL (7-18); CALCIUM LEVEL 9.5 MG/DL (8.8-10.2); CARBON DIOXIDE LEVEL 29 MEQ/L (21-32); CHLORIDE LEVEL 99 MEQ/L (98-107); CREATININE FOR GFR 1.09 MG/DL (0.70-1.30); GLOMERULAR FILTRATION RATE > 60.0 (>42); GLUCOSE, FASTING 135 MG/DL (70-100); POTASSIUM SERUM 4.4 MEQ/L (3.5-5.1); SODIUM LEVEL 136 MEQ/L (136-145)
[2018-04-24 16:25] LABS: ESTIMATED AVERAGE GLUCOSE 166 MG/DL (60-110); HEMOGLOBIN A1c 7.4 %
== END ==
LOC: M SFHCCLAY 07:15
DX: E11.9 Type 2 diabetes mellitus without complications (principal)
CPT/HCPCS: 83036

== ENCOUNTER 2018-05-21 09:34 | Inpatient (IN) | payer MEDICARE, OTHER ==
[2018-05-21] MEDS: PERCOCET 5MG/325MG TAB PO ×3 (06:00→22:02)
[2018-05-21] MEDS: LR 1,000 ML IV ×2 (06:00→16:30)
[2018-05-21 10:29] LABS: GLUCOSE, FASTING 144 MG/DL (70-100)
[2018-05-21] MEDS: CelecoXIB 400 MG CAP PO (10:32)
[2018-05-21] MEDS: PREGABALIN 75 MG CAP(LYRICA) PO (10:32)
[2018-05-21] MEDS ORDERED: MIDAZOLAM INJ 2 MG/2 ML VIAL (J2250) As Ordered ×2 (12:16→13:32)
[2018-05-21] MEDS ORDERED: fentaNYL 100 MCG/2 ML INJECTION (J3010) As Ordered (12:16)
[2018-05-21] MEDS ORDERED: PROPOFOL 200 MG/20 ML VIAL As Ordered ×3 (12:16→14:46)
[2018-05-21] MEDS ORDERED: BUPIVACAINE/DEXTROSE 0.75% 2 ML AMP As Ordered (12:59)
[2018-05-21] MEDS ORDERED: VASOPRESSIN INJ 20 UNITS/ML VIAL As Ordered (13:37)
[2018-05-21] MEDS: BUPIVACAINE/EPIN 0.25% 30 ML VIAL As Ordered (13:39)
[2018-05-21] MEDS: ceFAZolin 1GM INJ (J0690 PER 500MG) As Ordered (13:41)
[2018-05-21] MEDS: TRANEXAMIC ACID 100 MG/ML 10ML VIAL As Ordered (14:33)
[2018-05-21] MEDS: EPINEPHrine INJ 1 MG/ML 1ML AMP As Ordered (14:34)
[2018-05-21] MEDS ORDERED: PHENYLephrine HCL 500 MCG/5 ML (100MCG/ML) SYRINGE (J2370) As Ordered (14:54)
[2018-05-21] MEDS: BUPIVACAINE HCL 0.5% 10 ML VIAL As Ordered (14:57)
[2018-05-21] MEDS: BUPIVACAINE LIPOSOME/PF 1.3% 20 ML VIAL (13.3MG/ML)(EXPAREL) As Ordered (14:58)
[2018-05-21 16:12] LABS: BEDSIDE GLUCOSE 132 MG/DL (83-110)
[2018-05-21] MEDS ORDERED: HYDROMORPHONE HCL 0.5 MG/ 0.5 ML SYRINGE (J1170 PER 1) IV (16:30)
[2018-05-21] MEDS ORDERED: fentaNYL 100 MCG/2 ML INJECTION (J3010) IV (16:30)
[2018-05-21] MEDS ORDERED: ONDANSETRON 4MG/2ML VIAL (J2405) IV (16:30)
[2018-05-21] MEDS ORDERED: DEXTROSE 50% 50 ML SYRINGE IV (19:45)
[2018-05-21] MEDS ORDERED: GLUCAGON FOR INJ 1 MG VIAL (J1610) SC (19:45)
[2018-05-21] MEDS ORDERED: GLUCOSE 4 GM CHEW TABLET PO (19:45)
[2018-05-21] MEDS ORDERED: ALBUTEROL 90 MCG/ACT 8GM HFA INHALER INH (19:45)
[2018-05-21] MEDS: GABAPENTIN 300 MG CAP PO (20:11)
[2018-05-21] MEDS: HumaLOG INSULIN (NovoLOG) PER UNIT SC (20:12)
[2018-05-21] MEDS: ACETAMINOPHEN TAB 650MG DOSE (2X325MG) PO (20:12)
[2018-05-21 20:13] LABS: BEDSIDE GLUCOSE 216 MG/DL (83-110)
[2018-05-22] MEDS: ACETAMINOPHEN TAB 650MG DOSE (2X325MG) PO ×2 (00:25→05:25)
[2018-05-22] MEDS: PERCOCET 5MG/325MG TAB PO (02:08)
[2018-05-22 05:58] LABS: BEDSIDE GLUCOSE 190 MG/DL (83-110)
[2018-05-22] MEDS: ACETAMINOPHEN 500 MG TAB PO ×3 (06:00→21:46)
[2018-05-22] MEDS: traMADol 50 MG TAB PO ×3 (06:54→20:50)
[2018-05-22 06:56] LABS: HEMATOCRIT 40.2 % (42.0-52.0); HEMOGLOBIN 13.8 g/dl (13.5-17.5); MEAN CORPUSCULAR HEMOGLOBIN 30.7 pg (27.0-33.0); MEAN CORPUSCULAR HGB CONC 34.3 g/dl (32.0-36.5); MEAN CORPUSCULAR VOLUME 89.3 fl (80.0-96.0); PLATELET COUNT, AUTOMATED 152 10^3/uL (150-450); WHITE BLOOD COUNT 11.4 10^3/uL (4.0-10.0)
[2018-05-22 07:08] LABS: INR 1.09; PROTHROMBIN TIME 14.2 SECONDS (12.1-14.4)
[2018-05-22] MEDS: MOM 30ML SUSPENSION UDC PO (08:10)
[2018-05-22] MEDS: HumaLOG INSULIN (NovoLOG) PER UNIT SC ×4 (08:10→20:38)
[2018-05-22] MEDS: MIRALAX *UNIT DOSE* 17GM PACKET PO (08:10)
[2018-05-22] MEDS: ALLOPURINOL 300 MG TAB PO (08:11)
[2018-05-22] MEDS: GABAPENTIN 300 MG CAP PO ×3 (08:11→20:49)
[2018-05-22] MEDS: SENOKOT S TAB PO ×2 (08:11→20:49)
[2018-05-22] MEDS: ROSUVASTATIN 10 MG TAB (CRESTOR) PO (08:11)
[2018-05-22] MEDS: CelecoXIB (CeleBREX) 100 MG CAP PO (09:16)
[2018-05-22] MEDS: ADVAIR HFA 230/21MCG INHALER INH ×2 (10:24→20:06)
[2018-05-22 10:32] LABS: ANION GAP 8 MEQ/L (8-16); BLOOD UREA NITROGEN 14 MG/DL (7-18); CALCIUM LEVEL 8.2 MG/DL (8.8-10.2); CARBON DIOXIDE LEVEL 25 MEQ/L (21-32); CHLORIDE LEVEL 101 MEQ/L (98-107); CREATININE FOR GFR 0.87 MG/DL (0.70-1.30); GLOMERULAR FILTRATION RATE > 60.0 (>42); GLUCOSE, FASTING 193 MG/DL (70-100); POTASSIUM SERUM 4.3 MEQ/L (3.5-5.1); SODIUM LEVEL 134 MEQ/L (136-145)
[2018-05-22 11:36] LABS: BEDSIDE GLUCOSE 227 MG/DL (83-110)
[2018-05-22] MEDS: LISINOPRIL 5 MG TAB PO (14:28)
[2018-05-22 16:21] LABS: BEDSIDE GLUCOSE 186 MG/DL (83-110)
[2018-05-22] MEDS: RIVAROXABAN 10 MG TAB (XARELTO) PO (17:11)
[2018-05-22 20:04] LABS: BEDSIDE GLUCOSE 222 MG/DL (83-110)
[2018-05-23] MEDS: traMADol 50 MG TAB PO ×2 (03:40→16:47)
[2018-05-23] MEDS: ACETAMINOPHEN 500 MG TAB PO ×3 (05:38→21:04)
[2018-05-23 05:44] LABS: BEDSIDE GLUCOSE 199 MG/DL (83-110)
[2018-05-23 07:31] LABS: BEDSIDE GLUCOSE 226 MG/DL (83-110)
[2018-05-23] MEDS: ADVAIR HFA 230/21MCG INHALER INH ×2 (07:58→19:51)
[2018-05-23] MEDS: MOM 30ML SUSPENSION UDC PO (08:19)
[2018-05-23] MEDS: SENOKOT S TAB PO ×2 (08:20→21:04)
[2018-05-23] MEDS: LISINOPRIL 5 MG TAB PO (08:20)
[2018-05-23] MEDS: GABAPENTIN 300 MG CAP PO ×3 (08:20→21:04)
[2018-05-23] MEDS: ROSUVASTATIN 10 MG TAB (CRESTOR) PO (08:20)
[2018-05-23] MEDS: ALLOPURINOL 300 MG TAB PO (08:20)
[2018-05-23] MEDS: HumaLOG INSULIN (NovoLOG) PER UNIT SC ×4 (08:20→21:00)
[2018-05-23] MEDS: MIRALAX *UNIT DOSE* 17GM PACKET PO (08:20)
[2018-05-23 08:47] LABS: HEMATOCRIT 39.9 % (42.0-52.0); HEMOGLOBIN 13.7 g/dl (13.5-17.5); MEAN CORPUSCULAR HEMOGLOBIN 31.1 pg (27.0-33.0); MEAN CORPUSCULAR HGB CONC 34.3 g/dl (32.0-36.5); MEAN CORPUSCULAR VOLUME 90.5 fl (80.0-96.0); PLATELET COUNT, AUTOMATED 166 10^3/uL (150-450); RED BLOOD COUNT 4.41 10^6/uL (4.30-6.10); RED CELL DISTRIBUTION WIDTH 14.3 % (11.5-14.5); WHITE BLOOD COUNT 12.8 10^3/uL (4.0-10.0)
[2018-05-23 09:05] LABS: ANION GAP 10 MEQ/L (8-16); BLOOD UREA NITROGEN 14 MG/DL (7-18); CALCIUM LEVEL 8.6 MG/DL (8.8-10.2); CARBON DIOXIDE LEVEL 24 MEQ/L (21-32); CHLORIDE LEVEL 99 MEQ/L (98-107); GLOMERULAR FILTRATION RATE > 60.0 (>42); GLUCOSE, FASTING 220 MG/DL (70-100); POTASSIUM SERUM 4.2 MEQ/L (3.5-5.1); SODIUM LEVEL 133 MEQ/L (136-145)
[2018-05-23 12:01] LABS: BEDSIDE GLUCOSE 213 MG/DL (83-110)
[2018-05-23 16:44] LABS: BEDSIDE GLUCOSE 166 MG/DL (83-110)
[2018-05-23] MEDS: RIVAROXABAN 10 MG TAB (XARELTO) PO (16:47)
[2018-05-23 18:51] LABS: HEMATOCRIT 35.4 % (42.0-52.0); HEMOGLOBIN 12.2 g/dl (13.5-17.5); MEAN CORPUSCULAR HEMOGLOBIN 30.8 pg (27.0-33.0); MEAN CORPUSCULAR HGB CONC 34.5 g/dl (32.0-36.5); MEAN CORPUSCULAR VOLUME 89.4 fl (80.0-96.0); PLATELET COUNT, AUTOMATED 143 10^3/uL (150-450); RED BLOOD COUNT 3.96 10^6/uL (4.30-6.10); RED CELL DISTRIBUTION WIDTH 14.4 % (11.5-14.5); WHITE BLOOD COUNT 11.7 10^3/uL (4.0-10.0)
[2018-05-23] MEDS: FUROSEMIDE 40 MG/4 ML VIAL (J1940) IV (19:10)
[2018-05-23 19:13] LABS: ANION GAP 7 MEQ/L (8-16); BLOOD UREA NITROGEN 14 MG/DL (7-18); CALCIUM LEVEL 8.2 MG/DL (8.8-10.2); CARBON DIOXIDE LEVEL 26 MEQ/L (21-32); CHLORIDE LEVEL 97 MEQ/L (98-107); CK-MB VALUE MASS 3.3 NG/ML (<3.6); CPK CREATINE PHOSPHOKINASE 692 U/L (39-308); CREATININE FOR GFR 0.95 MG/DL (0.70-1.30); GLOMERULAR FILTRATION RATE > 60.0 (>42); GLUCOSE, FASTING 222 MG/DL (70-100); MB/CK RELATIVE INDEX 0.47 (< OR =4); SODIUM LEVEL 130 MEQ/L (136-145); TROPONIN I < 0.02 NG/ML (< 0.10)
[2018-05-23] MEDS ORDERED: ISOVUE-370 76% 100ML VIAL (Q9967) As Ordered (19:37)
[2018-05-23 21:00] LABS: BEDSIDE GLUCOSE 226 MG/DL (83-110)
[2018-05-23] MEDS: LevoFLOXacin IV 750 MG in APPROPRIATE DILUENT 1 EA IV (21:04)
[2018-05-24] MEDS: IPRATROPIUM 0.5MG/ALBUTEROL 2.5MG INH SOL UD 3ML (DUONEB)(J7620) NEB ×2 (04:02→07:48)
[2018-05-24] MEDS: traMADol 50 MG TAB PO (04:39)
[2018-05-24] MEDS: ACETAMINOPHEN 500 MG TAB PO ×3 (05:26→21:02)
[2018-05-24 06:28] LABS: HEMATOCRIT 36.1 % (42.0-52.0); HEMOGLOBIN 12.2 g/dl (13.5-17.5); MEAN CORPUSCULAR HEMOGLOBIN 30.9 pg (27.0-33.0); MEAN CORPUSCULAR HGB CONC 33.8 g/dl (32.0-36.5); MEAN CORPUSCULAR VOLUME 91.4 fl (80.0-96.0); PLATELET COUNT, AUTOMATED 153 10^3/uL (150-450); RED BLOOD COUNT 3.95 10^6/uL (4.30-6.10); RED CELL DISTRIBUTION WIDTH 14.4 % (11.5-14.5); WHITE BLOOD COUNT 10.7 10^3/uL (4.0-10.0)
[2018-05-24 06:52] LABS: ANION GAP 8 MEQ/L (8-16); BLOOD UREA NITROGEN 15 MG/DL (7-18); CALCIUM LEVEL 8.9 MG/DL (8.8-10.2); CARBON DIOXIDE LEVEL 29 MEQ/L (21-32); CHLORIDE LEVEL 95 MEQ/L (98-107); CREATININE FOR GFR 0.99 MG/DL (0.70-1.30); GLOMERULAR FILTRATION RATE > 60.0 (>42); GLUCOSE, FASTING 195 MG/DL (70-100); POTASSIUM SERUM 3.8 MEQ/L (3.5-5.1); SODIUM LEVEL 132 MEQ/L (136-145)
[2018-05-24] MEDS: ADVAIR HFA 230/21MCG INHALER INH ×2 (07:46→19:34)
[2018-05-24] MEDS: MOM 30ML SUSPENSION UDC PO (08:00)
[2018-05-24] MEDS: MIRALAX *UNIT DOSE* 17GM PACKET PO (08:00)
[2018-05-24] MEDS: guaiFENesin ER 600 MG TAB PO ×2 (08:01→21:01)
[2018-05-24] MEDS: ALLOPURINOL 300 MG TAB PO (08:01)
[2018-05-24] MEDS: SENOKOT S TAB PO ×2 (08:01→21:02)
[2018-05-24] MEDS: HumaLOG INSULIN (NovoLOG) PER UNIT SC ×4 (08:01→21:00)
[2018-05-24] MEDS: GABAPENTIN 300 MG CAP PO ×3 (08:01→21:02)
[2018-05-24] MEDS: ROSUVASTATIN 10 MG TAB (CRESTOR) PO (08:01)
[2018-05-24] MEDS: LISINOPRIL 5 MG TAB PO (08:02)
[2018-05-24] MEDS: SITagliptin 50 MG TAB (JANUVIA) PO (08:02)
[2018-05-24 12:31] LABS: BEDSIDE GLUCOSE 233 MG/DL (83-110)
[2018-05-24 16:06] LABS: BEDSIDE GLUCOSE 294 MG/DL (83-110)
[2018-05-24] MEDS: LEVEMIR (INSULIN DETEMIR) 1 UNITS/0.01ML SC (16:21)
[2018-05-24 17:55] LABS: BEDSIDE GLUCOSE 250 MG/DL (83-110)
[2018-05-24] MEDS: RIVAROXABAN 10 MG TAB (XARELTO) PO (18:01)
[2018-05-24] MEDS: FLEET ENEMA PR (18:52)
[2018-05-24 20:59] LABS: BEDSIDE GLUCOSE 244 MG/DL (83-110)
[2018-05-24] MEDS: LevoFLOXacin IV 750 MG in APPROPRIATE DILUENT 1 EA IV (21:01)
[2018-05-25] MEDS: traMADol 50 MG TAB PO (03:35)
[2018-05-25] MEDS: ACETAMINOPHEN 500 MG TAB PO (05:45)
[2018-05-25 06:35] LABS: HEMATOCRIT 33.1 % (42.0-52.0); HEMOGLOBIN 11.4 g/dl (13.5-17.5); MEAN CORPUSCULAR HEMOGLOBIN 30.8 pg (27.0-33.0); MEAN CORPUSCULAR HGB CONC 34.4 g/dl (32.0-36.5); MEAN CORPUSCULAR VOLUME 89.5 fl (80.0-96.0); PLATELET COUNT, AUTOMATED 163 10^3/uL (150-450); RED CELL DISTRIBUTION WIDTH 14.5 % (11.5-14.5); WHITE BLOOD COUNT 9.5 10^3/uL (4.0-10.0)
[2018-05-25 07:06] LABS: ANION GAP 10 MEQ/L (8-16); BLOOD UREA NITROGEN 19 MG/DL (7-18); CALCIUM LEVEL 8.5 MG/DL (8.8-10.2); CARBON DIOXIDE LEVEL 25 MEQ/L (21-32); CHLORIDE LEVEL 98 MEQ/L (98-107); CREATININE FOR GFR 0.98 MG/DL (0.70-1.30); GLOMERULAR FILTRATION RATE > 60.0 (>42); GLUCOSE, FASTING 216 MG/DL (70-100); SODIUM LEVEL 133 MEQ/L (136-145)
[2018-05-25] MEDS: ADVAIR HFA 230/21MCG INHALER INH (08:43)
[2018-05-25] MEDS: MIRALAX *UNIT DOSE* 17GM PACKET PO (09:00)
[2018-05-25] MEDS: MOM 30ML SUSPENSION UDC PO (09:00)
[2018-05-25] MEDS: HumaLOG INSULIN (NovoLOG) PER UNIT SC (09:34)
[2018-05-25] MEDS: ALLOPURINOL 300 MG TAB PO (09:35)
[2018-05-25] MEDS: GABAPENTIN 300 MG CAP PO (09:35)
[2018-05-25] MEDS: guaiFENesin ER 600 MG TAB PO (09:35)
[2018-05-25] MEDS: SENOKOT S TAB PO (09:35)
[2018-05-25] MEDS: ROSUVASTATIN 10 MG TAB (CRESTOR) PO (09:35)
[2018-05-25] MEDS: LEVEMIR (INSULIN DETEMIR) 1 UNITS/0.01ML SC (09:36)
[2018-05-25] MEDS: LISINOPRIL 5 MG TAB PO (09:36)
[2018-05-25] MEDS: SITagliptin 50 MG TAB (JANUVIA) PO (09:36)
[2018-05-25 09:40] LABS: ESTIMATED AVERAGE GLUCOSE 183 MG/DL (60-110)
== END 2018-05-25 12:00 | disposition home health service (06) | DRG 470 ==
LOC: M OR 09:34 → M MS5PR 17:20 → M PCU 05-23 23:22 → M MS5PR 05-24 15:05
PROVIDERS: Orthopaedic Surgery
PROC: 0SRB04A Replacement of Left Hip Joint with Ceramic on Polyethylene Synthetic Substitute, Uncemented, Open Approach (ICD-10-PCS; principal; 2018-05-21 11:30)
DX: M16.12 Unilateral primary osteoarthritis, left hip (principal); I10 Essential (primary) hypertension; J44.9 Chronic obstructive pulmonary disease, unspecified; E11.9 Type 2 diabetes mellitus without complications; I35.0 Nonrheumatic aortic (valve) stenosis; F17.210 Nicotine dependence, cigarettes, uncomplicated; Z88.5 Allergy status to narcotic agent; Z88.8 Allergy status to other drugs, medicaments and biological substances; Z79.82 Long term (current) use of aspirin; M10.9 Gout, unspecified; E78.5 Hyperlipidemia, unspecified

== ENCOUNTER → 2018-07-04 | Outpatient (CLI) | payer MEDICARE, OTHER | LOC: M CLY 12:20 | DX: J06.9 Acute upper respiratory infection, unspecified (principal); J44.9 Chronic obstructive pulmonary disease, unspecified | CPT/HCPCS: 71046; G0463 ==

== ENCOUNTER → 2018-08-09 | Outpatient (REF) | payer MEDICARE, OTHER ==
[2018-08-09 12:20] LABS: ESTIMATED AVERAGE GLUCOSE 157 MG/DL (60-110); HEMOGLOBIN A1c 7.1 %
[2018-08-09 16:32] LABS: ALBUMIN 4.2 GM/DL (3.2-5.2); ALBUMIN/GLOBULIN RATIO 1.17 (1.00-1.93); ALKALINE PHOSPHATASE 88 U/L (45-117); ALT/SGPT 19 U/L (12-78); ANION GAP 10 MEQ/L (8-16); AST/SGOT 49 U/L (7-37); BILIRUBIN,TOTAL 0.3 MG/DL (0.2-1.0); BLOOD UREA NITROGEN 15 MG/DL (7-18); CALCIUM LEVEL 9.4 MG/DL (8.8-10.2); CARBON DIOXIDE LEVEL 25 MEQ/L (21-32); CHLORIDE LEVEL 99 MEQ/L (98-107); CREATININE FOR GFR 0.97 MG/DL (0.70-1.30); GLOMERULAR FILTRATION RATE > 60.0 (>42); GLUCOSE, FASTING 129 MG/DL (70-100); POTASSIUM SERUM 4.6 MEQ/L (3.5-5.1); SODIUM LEVEL 134 MEQ/L (136-145); TOTAL PROTEIN 7.8 GM/DL (6.4-8.2)
== END ==
LOC: M SFHCCLAY 07:43
DX: E11.9 Type 2 diabetes mellitus without complications (principal)
CPT/HCPCS: 80053

== ENCOUNTER → 2018-11-14 | Outpatient (REF) | payer MEDICARE, OTHER ==
[~2018-11-14] MED LIST changes: +ACET30TAB PO; +ADUL81TA2 PO; +ALLOPOW4 PO; +ANOR1AER IN; +ANOR1AER INH; +ASPI-222 PO; +AVOD0.5C PO; +BAYE325T12 PO; +CIAL20TA PO; +CIPR-249 PO; +CIPR500T4 PO; +COLA100C2 PO; +CRES20TA PO; +CRESTOR PO; +CYCL10TA; +CYCL10TA PO; +FARX1TAB3 PO; +FISH120012 PO; +FISH5CAP PO; +FLAG500T PO; +FLEXARIL PO; +GABA-843 PO; -GLUCAGON FOR INJ 1 MG VIAL (J1610) As Ordered; +HYDR25TAB PO; +HYDROCHLORIZIDE PO; -ISOVUE-370 76% 100ML VIAL (Q9967) As Ordered; +JANU100T PO; +JANUVIA PO; +K-TA10TA2 PO; +LEVA750T7 PO; +LISI-542 PO; +LISIPOW PO; +MAGN400C2 PO; +MAGN65TA PO; +MAGNESIUM PO; +MELO15TA28 PO; +METF500T13 PO; +METFORMIN PO; +MUCI600T37 PO; +NIASPAN PO; +NICO14DI3 TD; +OMEP20CA3 PO; +OMEP40CA2 PO; +PERC5TAB12 PO; +POTA10CA32 PO; +SENOKOT PO; +SPIRIVA HANDIHALER INH; +TRAM50TA2 PO; +TRUL0.5I SC; +TYLE500T78 PO; +VENTAER INH; +VIAG100T PO; +VICO5TAB PO; -VoLumen 0.1% SUSPENSION 450ML BOTTLE As Ordered; +XARE10TA PO; +ZYLO300T6; +ZYLO300T6 PO
[2018-11-14 11:24] LABS: BLOOD UREA NITROGEN 15 MG/DL (7-18); CALCIUM LEVEL 9.3 MG/DL (8.8-10.2); CARBON DIOXIDE LEVEL 28 MEQ/L (21-32); CHLORIDE LEVEL 100 MEQ/L (98-107); CHOLESTEROL LEVEL 106 MG/DL (<200); CHOLESTEROL RISK RATIO 3.785 (<5); CREATININE FOR GFR 1.12 MG/DL (0.70-1.30); GLOMERULAR FILTRATION RATE > 60.0 (>42); GLUCOSE, FASTING 147 MG/DL (70-100); HDL CHOLESTEROL 28 MG/DL (>40); LDL CHOLESTEROL 34 MG/DL (<100); NON-HDL-C 78 MG/DL; POTASSIUM SERUM 4.6 MEQ/L (3.5-5.1); SODIUM LEVEL 135 MEQ/L (136-145); TRIGLYCERIDES LEVEL 221 MG/DL (<150)
[2018-11-14 12:01] LABS: HEMOGLOBIN A1c 8.3 %
== END ==
LOC: M SFHCCLAY 07:06
PROVIDERS: ATTEND Family Medicine
DX: E11.9 Type 2 diabetes mellitus without complications (principal); E78.5 Hyperlipidemia, unspecified

== ENCOUNTER → 2018-11-27 | Outpatient (CLI) | payer MEDICARE, OTHER ==
--- NOTE | 2018-11-27 17:22 | REP ---
RENAL ULTRASOUND: Real-time sonographic evaluation of the kidneys performed. The kidneys are normal in size and echotexture, right kidney measuring 12.1 x 4.9 x 6.1 cm and left kidney 12.1 x 5.6 x 6.9 cm. There is no hydronephrosis bilaterally. A cyst in the upper pole of the left kidney measures 2.1 cm in diameter and a cyst in the lower pole of the left kidney measures 1.6 cm in diameter. No renal stones are seen. Prostate measures 3.9 x 2.2 x 4.1 cm for a total volume of 18 mL. Bladder demonstrates no calculus or wall thickening. There is impression upon the base of the bladder by the prostate. IMPRESSION: No hydronephrosis. Two left renal cysts noted. Mildly prominent prostate impresses upon the base of the bladder. Electronically Signed by Ifeanyi Lamas MD 11/27/2018 08:20 P
== END ==
LOC: M RAD 13:15
PROVIDERS: ATTEND Nurse Practitioner Women's Health
DX: Z87.442 Personal history of urinary calculi (principal); Q61.00 Congenital renal cyst, unspecified

== ENCOUNTER → 2018-12-02 | Outpatient (REF) | payer MEDICARE, OTHER ==
[2018-12-02 13:48] LABS: APPEARANCE, URINE CLEAR (CLEAR); BACTERIA, URINE AUTO NEGATIVE (NEGATIVE); BILIRUBIN, URINE AUTO NEGATIVE (NEGATIVE); BLOOD, URINE BLOOD NEGATIVE (NEGATIVE); COLOR, URINE YELLOW (YELLOW); GLUCOSE, URINE (UA) AUTO 3+ mg/dL (NEGATIVE); KETONE, URINE AUTO NEGATIVE (NEGATIVE); LEUKOCYTE ESTERASE, URINE AUTO NEGATIVE (NEGATIVE); NITRITE, URINE AUTO NEGATIVE (NEGATIVE); PROTEIN, URINE AUTO NEGATIVE (NEGATIVE); RBC, URINE AUTO 0 /HPF (0-3); SPECIFIC GRAVITY URINE AUTO 1.023 (1.002-1.035); SQUAMOUS EPITHELIAL CELL UR AU 0 /HPF (0-6); UROBILINOGEN, URINE AUTO 0.2 mg/dL (0.0-2.0); WBC, URINE AUTO 0 /HPF (0-3)
== END ==
LOC: M SMT 13:17
PROVIDERS: ATTEND Nurse Practitioner Women's Health
DX: R39.15 Urgency of urination (principal)
CPT/HCPCS: 81001; 87086; G0463

== ENCOUNTER → 2019-02-12 | Outpatient (REF) | payer MEDICARE, OTHER ==
[~2019-02-12] MED LIST changes: +ACET-716 PO; -ACET30TAB PO; -CRES20TA PO; +CRES20TA2 PO
[2019-02-12 11:30] LABS: ALBUMIN 4.1 GM/DL (3.2-5.2); ALT/SGPT 23 U/L (12-78); BILIRUBIN,TOTAL 0.4 MG/DL (0.2-1.0); BLOOD UREA NITROGEN 22 MG/DL (7-18); CALCIUM LEVEL 9.1 MG/DL (8.8-10.2); CARBON DIOXIDE LEVEL 26 MEQ/L (21-32); CHLORIDE LEVEL 101 MEQ/L (98-107); CREATININE FOR GFR 1.04 MG/DL (0.70-1.30); GLOMERULAR FILTRATION RATE > 60.0 (>42); GLUCOSE, FASTING 145 MG/DL (70-100); POTASSIUM SERUM 4.4 MEQ/L (3.5-5.1); SODIUM LEVEL 134 MEQ/L (136-145); TOTAL PROTEIN 7.7 GM/DL (6.4-8.2)
[2019-02-12 11:41] LABS: HEMOGLOBIN A1c 7.5 %
[2019-02-12 12:11] LABS: CREATININE, URINE 71.8 MG/DL; MALB URINE SIEMENS 18.9 MG/L; MAU/CREAT RATIO 26.3 MCG/MG (0.0-30.0)
== END ==
LOC: M SFHCCLAY 07:05
PROVIDERS: ATTEND Family Medicine
DX: E11.9 Type 2 diabetes mellitus without complications (principal)

== ENCOUNTER → 2019-06-02 | Outpatient (REF) | payer MEDICARE, OTHER ==
[~2019-06-02] MED LIST changes: -OMEP20CA3 PO; +OMEP20CA4 PO
[2019-06-02 12:20] LABS: ALBUMIN 4.3 GM/DL (3.2-5.2); ALT/SGPT 22 U/L (12-78); BILIRUBIN,TOTAL 0.4 MG/DL (0.2-1.0); BLOOD UREA NITROGEN 18 MG/DL (7-18); CALCIUM LEVEL 9.9 MG/DL (8.8-10.2); CARBON DIOXIDE LEVEL 27 MEQ/L (21-32); CHLORIDE LEVEL 99 MEQ/L (98-107); CREATININE FOR GFR 1.06 MG/DL (0.70-1.30); GLOMERULAR FILTRATION RATE > 60.0 (>42); GLUCOSE, FASTING 132 MG/DL (70-100); POTASSIUM SERUM 4.3 MEQ/L (3.5-5.1); SODIUM LEVEL 136 MEQ/L (136-145); TOTAL PROTEIN 7.6 GM/DL (6.4-8.2)
[2019-06-02 14:18] LABS: HEMOGLOBIN A1c 7.7 %
== END ==
LOC: M SFHCCLAY 07:10
PROVIDERS: ATTEND Family Medicine
DX: E11.9 Type 2 diabetes mellitus without complications (principal)

== ENCOUNTER → 2019-07-24 | Outpatient (CLI) | payer MEDICARE, OTHER ==
[~2019-07-24] MED LIST changes: -ASPI-222 PO; +ASPI-527 PO; +IBUP-1022 PO; -OMEP40CA2 PO; +OMEP40CA97 PO
--- NOTE | 2019-07-24 12:22 | REP ---
Chest x-ray: Two views. History: Left-sided chest wall pain. Comparison chest x-ray: July 04, 2018. Findings: Bibasilar interstitial fibrosis pattern is again seen moderate in degree. No superimposed focal infiltrate is appreciated. Heart is not enlarged. Pleural angles are sharp. The aorta is calcific and slightly tortuous. There are degenerative changes in the thoracic spine. Impression: Chronic interstitial fibrosis pattern unchanged. Electronically Signed by Lenin Chery MD 07/24/2019 12:13 P
== END ==
LOC: M CLY 11:32
PROVIDERS: ATTEND Family Medicine
DX: R91.8 Other nonspecific abnormal finding of lung field (principal); M51.34 Other intervertebral disc degeneration, thoracic region; R07.89 Other chest pain; Z23 Encounter for immunization
CPT/HCPCS: 71046; 90682; G0008; G0463

== ENCOUNTER 2019-07-31 21:11 | Emergency (ER) | payer OTHER, MEDICARE ==
[~2019-07-31] VITALS: Ht 180.3 cm; Wt 88.6 kg
[~2019-07-31 21:11] MED LIST changes: -IBUP-1022 PO
[2019-07-31 21:19] VITALS: BP 140/68
[2019-07-31] MEDS ORDERED: IBUPROFEN 600 MG TAB PO ONE (22:00)
[2019-07-31] MEDS ORDERED: IBUP-1022 PO (22:24)
--- NOTE | 2019-08-01 03:01 | REP ---
Clinical: Trauma. Fall. Technique: AP, lateral, bilateral oblique and sunrise views of the right knee. Findings: Moderate tricompartmental osteoarthritic degenerative changes are appreciated. No obvious acute fracture or dislocation. Evidence for peripheral vascular disease noted. Impression: Moderate tricompartmental osteoarthritic degenerative changes. No acute fracture or dislocation. Electronically Signed by Jack Young MD 08/01/2019 02:52 A
== END 2019-07-31 23:04 | disposition home or self-care (01) ==
LOC: M ED 21:11
DX: S83.91XA Sprain of unspecified site of right knee, initial encounter (principal); W19.XXXA Unspecified fall, initial encounter; Y92.89 Other specified places as the place of occurrence of the external cause; Y93.9 Activity, unspecified; Y99.9 Unspecified external cause status; F17.200 Nicotine dependence, unspecified, uncomplicated; M17.11 Unilateral primary osteoarthritis, right knee; E11.9 Type 2 diabetes mellitus without complications; Z79.84 Long term (current) use of oral hypoglycemic drugs; Z79.899 Other long term (current) drug therapy; Z88.5 Allergy status to narcotic agent; Z91.018 Allergy to other foods

== ENCOUNTER → 2019-08-13 | Outpatient (REF) | payer MEDICARE, OTHER ==
[~2019-08-13] MED LIST changes: +IBUP-1022 PO
[2019-08-13 11:51] LABS: ALBUMIN 4.1 GM/DL (3.2-5.2); ALT/SGPT 18 U/L (12-78); BILIRUBIN,TOTAL 0.4 MG/DL (0.2-1.0); BLOOD UREA NITROGEN 18 MG/DL (7-18); CALCIUM LEVEL 9.1 MG/DL (8.8-10.2); CARBON DIOXIDE LEVEL 29 MEQ/L (21-32); CHLORIDE LEVEL 99 MEQ/L (98-107); CREATININE FOR GFR 1.16 MG/DL (0.70-1.30); GLOMERULAR FILTRATION RATE > 60.0 (>42); GLUCOSE, FASTING 128 MG/DL (70-100); POTASSIUM SERUM 4.5 MEQ/L (3.5-5.1); SODIUM LEVEL 136 MEQ/L (136-145); TOTAL PROTEIN 7.4 GM/DL (6.4-8.2)
[2019-08-13 12:02] LABS: HEMOGLOBIN A1c 7.1 %
== END ==
LOC: M SFHCCLAY 07:04
PROVIDERS: ATTEND Family Medicine
DX: E11.9 Type 2 diabetes mellitus without complications (principal)

== ENCOUNTER → 2019-09-16 | Outpatient (CLI) | payer MEDICARE, OTHER ==
[2019-09-16 09:27] LABS: HEMATOCRIT 50.2 % (42.0-52.0); HEMOGLOBIN 16.4 g/dl (13.5-17.5); MEAN CORPUSCULAR HEMOGLOBIN 30.4 pg (27.0-33.0); MEAN CORPUSCULAR HGB CONC 32.7 g/dl (32.0-36.5); PLATELET COUNT, AUTOMATED 199 10^3/uL (150-450); WHITE BLOOD COUNT 8.1 10^3/uL (4.0-10.0)
[2019-09-16 09:39] LABS: INR 1.13; PROTHROMBIN TIME 14.2 SECONDS (11.8-14.0)
[2019-09-16 09:59] LABS: ALBUMIN 4.2 GM/DL (3.2-5.2); ALT/SGPT 20 U/L (12-78); BILIRUBIN,TOTAL 0.5 MG/DL (0.2-1.0); BLOOD UREA NITROGEN 19 MG/DL (7-18); CALCIUM LEVEL 9.7 MG/DL (8.8-10.2); CARBON DIOXIDE LEVEL 29 MEQ/L (21-32); CHLORIDE LEVEL 101 MEQ/L (98-107); CREATININE FOR GFR 1.12 MG/DL (0.70-1.30); GLOMERULAR FILTRATION RATE > 60.0 (>42); GLUCOSE, FASTING 117 MG/DL (70-100); POTASSIUM SERUM 4.6 MEQ/L (3.5-5.1); SODIUM LEVEL 136 MEQ/L (136-145); TOTAL PROTEIN 7.9 GM/DL (6.4-8.2)
--- NOTE | 2019-09-17 07:54 | ECGEPIP ---
[facility] Test Date: 2019-09-16 Pat Name: RAUL FRAGOSO Department: Room: - Gender: Male Advertising Sales Representative: : 1945 Requested By: AMANDA Haji Order Number: [id number] Reading MD: Carl Pat Measurements Intervals [place] Rate: 75 P: 50 MS: 188 QRS: 48 QRSD: 110 T: -6 QT: 392 QTc: 439 Interpretive Statements SINUS RHYTHM WITH MARKED SINUS ARRHYTHMIA Baseline artifact Electronically Signed on 09-17-2019 7:54:08 EST by Carl Pat
== END ==
LOC: M LAB 08:34
PROVIDERS: ATTEND Orthopaedic Surgery
DX: Z01.812 Encounter for preprocedural laboratory examination (principal); M75.121 Complete rotator cuff tear or rupture of right shoulder, not specified as traumatic; R94.31 Abnormal electrocardiogram [ECG] [EKG]

== ENCOUNTER 2019-09-24 17:06 | Inpatient (IN) | payer MEDICARE, OTHER ==
[~2019-09-24] VITALS: Ht 180.3 cm; Wt 89.0 kg
[~2019-09-24 17:06] MED LIST changes: +OMEP-172 PO; -OMEP20CA4 PO
[2019-09-24] MEDS ORDERED: PRED20TA PO (17:24)
[2019-09-24] MEDS ORDERED: AMOX875T2 PO (17:24)
[2019-09-24 17:36] LABS: BASO % 0.2 % (0.0-1.0); EOS % 0.1 % (0.0-3.0); HEMATOCRIT 47.2 % (42.0-52.0); HEMOGLOBIN 15.3 g/dl (13.5-17.5); LYMPH % 8.2 % (24.0-44.0); MEAN CORPUSCULAR HEMOGLOBIN 30.5 pg (27.0-33.0); MEAN CORPUSCULAR HGB CONC 32.4 g/dl (32.0-36.5); MEAN CORPUSCULAR VOLUME 94.2 fl (80.0-96.0); MONO # 0.4 10^3/uL (0.0-0.8); MONO % 3.3 % (0.0-5.0); NEUTROPHILS % 87.8 % (36.0-66.0); PLATELET COUNT, AUTOMATED 168 10^3/uL (150-450); RED BLOOD COUNT 5.01 10^6/uL (4.30-6.10); WHITE BLOOD COUNT 12.5 10^3/uL (4.0-10.0)
[2019-09-24 17:48] LABS: INR 1.08; PROTHROMBIN TIME 13.8 SECONDS (11.8-14.0)
[2019-09-24] MEDS: IPRATROPIUM 0.5MG/ALBUTEROL 2.5MG INH SOL UD 3ML (DUONEB)(J7620) NEB SCH ×3 (18:31→19:10)
[2019-09-24 18:34] LABS: BLOOD UREA NITROGEN 22 MG/DL (7-18); CREATININE FOR GFR 0.99 MG/DL (0.70-1.30); GLOMERULAR FILTRATION RATE > 60.0 (>42); GLUCOSE, FASTING 230 MG/DL (70-100); POTASSIUM SERUM 4.1 MEQ/L (3.5-5.1); SODIUM LEVEL 135 MEQ/L (136-145)
[2019-09-24 18:35] LABS: ALT/SGPT 29 U/L (12-78); BILIRUBIN,DIRECT 0.1 MG/DL (0.0-0.2); BILIRUBIN,TOTAL 0.3 MG/DL (0.2-1.0); CALCIUM LEVEL 8.8 MG/DL (8.8-10.2); CARBON DIOXIDE LEVEL 28 MEQ/L (21-32); CHLORIDE LEVEL 101 MEQ/L (98-107); CK-MB VALUE MASS 3.6 NG/ML (<3.6); CPK CREATINE PHOSPHOKINASE 110 U/L (39-308); MB/CK RELATIVE INDEX 3.27 (< OR =4); TOTAL PROTEIN 7.1 GM/DL (6.4-8.2)
[2019-09-24 18:36] LABS: ALBUMIN 3.7 GM/DL (3.2-5.2); NT-PRO BNP 98 PG/ML (<125); TROPONIN I < 0.02 NG/ML (< 0.10)
--- NOTE | 2019-09-24 18:50 | REP ---
CHEST, TWO VIEWS: Two views of the chest are performed. Lateral view is limited as the patient cannot raise his arms overhead. There is bibasilar fibrosis which appears unchanged compared to 07/24/2019. There is mild elevation of the right hemidiaphragm. The heart is not enlarged. There is calcification of the thoracic aorta. The mediastinal silhouette is unchanged. There are degenerative changes of the spine. IMPRESSION: Chronic fibrotic changes in the lung bases appear stable with no definite superimposed acute infiltrate. Electronically Signed by Ifeanyi Lamas MD 09/29/2019 09:57 A
[2019-09-24 18:55] LABS: ABG BASE EXCESS -2.1 (-2.0-2.0); ABG HCO3 21.9 MEQ/L (22.0-26.0); ABG O2 SATURATION 97.3 % (95.0-99.0); ABG PARTIAL PRESSURE CO2 35.7 mmHg (35.0-45.0); ABG STANDARD HCO3 22.7 MEQ/L (22.0-26.0); ABG pH (ARTERIAL) 7.406 UNITS (7.350-7.450)
--- NOTE | 2019-09-24 20:15 | REPVR ---
PROCEDURE INFORMATION: Exam: CT Chest Without Contrast Exam date and time: 09/24/2019 7:42 PM Age: 73 years old Clinical history: Other: Hypoxia; Prior surgery; Surgery date: Post-operative (0-2 days); Surgery type: Shoulder; Additional info: Hypoxia post-op, R/O pneumonia TECHNIQUE: Imaging protocol: Computed tomography of the chest without contrast. 3D rendering: MIP reconstructed images were created and reviewed. Radiation optimization: All CT scans at this facility use at least one of these dose optimization techniques: automated exposure control; mA and/or kV adjustment per patient size (includes targeted exams where dose is matched to clinical indication); or iterative reconstruction. COMPARISON: CT Chest without contrast 11/04/2017 9:52 AM FINDINGS: Lungs: Mild coarse interstitial prominence with minimal scattered bullous or cystic changes, greatest in the subpleural regions. There is mild right lower lobe infiltrate, atelectasis or consolidation with some volume loss. There is minimal fibro-atelectatic change in the right middle lobe and there is interstitial prominence or scar in the lingula and right upper lobe. Pleural space: Unremarkable. No pneumothorax. No pleural effusion. Heart: Unremarkable. No cardiomegaly. No pericardial effusion. Pulmonary arteries: The main pulmonary artery measures 34 mm Aorta: The ascending thoracic aorta measures 34 mm. Lymph nodes: Numerous scattered mediastinal nodes are present which are borderline overall. Kidneys and ureters: There is a left renal cyst measuring up to 22 mm. Bones/joints: Unremarkable. No acute fracture. Soft tissues: There is subcutaneous emphysema about the right shoulder with trace fluid interposed around the musculature. IMPRESSION: 1. Subcutaneous emphysema with induration and trace fluid about the right shoulder consistent with recent surgery. 2. Mild coarse interstitial pulmonary prominence with minimal scattered bullous or cystic changes. There is mild right lower lobe infiltrate, atelectasis or consolidation consistent with pneumonia. 3. Borderline mediastinal nodes which may be reactive. Electronically signed by: Aroldo Madsen On 09/24/2019 20:15:33 PM
[2019-09-24] MEDS ORDERED: fentaNYL 100 MCG/2 ML INJECTION (J3010) IV ONE (20:45)
[2019-09-24] MEDS ORDERED: ONDANSETRON 4MG/2ML VIAL (J2405) IV ONE (20:45)
[2019-09-24] MEDS ORDERED: methylPREDNISolone INJ 125 MG/2 ML VIAL (J2930) IV STA (21:07)
--- NOTE | 2019-09-24 21:08 | HPEPDOC ---
[facility] Medical History & Physical Date of Admission Sep 24, 2019 Date of Service: Sep 24, 2019 Primary Care Physician: Jermaine Rebolledo Attending Physician: JAQUAN MULLEN MD History and Physical TIME OF SERVICE: 10:30 PM CHIEF COMPLAINT: Sent from outpatient surgical center HISTORY OF PRESENT ILLNESS: This is a 73-year-old male who was sent from an outpatient surgical center because of postoperative hypoxia. He had right rotator cuff surgery done today. He developed a cough without fevers or chills on Sunday. On Sunday he went to urgent care center where his given a prescription for prednisone and Augmentin. His was recently diagnosed with bronchitis. Currently, he denies having any complaints and reports his postoperative pain is well-controlled. REVIEW OF SYSTEMS: 12 point review of systems negative except as listed in HPI PAST MEDICAL/ SURGICAL HISTORY: COPD Gout. Chronic hypertension. NIDDM. Dyslipidemia. History of nephrolithiasis. Status post right rotator cuff surgery. Status post carpal tunnel release. Status post back surgery SOCIAL HISTORY: Smokes FAMILY HISTORY: Hypertension. Heart disease. Diabetes ALLERGIES: Please see below. HOME MEDICATIONS: Please see below. PHYSICAL EXAMINATION: VITAL SIGNS: Please see below. GEN: well nourished / well developed/ NAD INTEGUMENT: not flushed / right shoulder is wrapped in clean and dry dressings HEENT: normocephalic / atramatic / lips acyanotic /mucus membranes moist and pink / swetha cannula in place CVS: RRR/NMRG/ radial and dorsalis pedis pulses intact / no lower extremity edema LUNGS: able to speak full sentences without stopping to take a breath /breath sounds are decreased on the right side / there is dullness to percussion on the right side ABDOMEN: there are no masses or lesions / bowel sounds are present / the abdomen is tympanic on percussion, soft & not tender with palpation MSK/EXTREMITIES: range of motion intact in all 4 extremities , except for right shoulder NEURO: CN 2-12 are grossly intact / speech is not dysarthric PSYCH: alert and oriented to person place and time/ able to understand and follow all commands LABORATORY DATA: See below. IMAGING: Chest x-ray " IMPRESSION: Chronic fibrotic changes in the lung bases appear stable with no definite superimposed acute infiltrate." CT chest " IMPRESSION: 1. Subcutaneous emphysema with induration and trace fluid about the right shoulder consistent with recent surgery. 2. Mild coarse interstitial pulmonary prominence with minimal scattered bullous or cystic changes. There is mild right lower lobe infiltrate, atelectasis or consolidation consistent with pneumonia. 3. Borderline mediastinal nodes which may be reactive. " MICROBIOLOGY: Please see below. ASSESSMENT: Mr. Ferrari is a 73-year-old with a past history of COPD, gout, axb-umybqse-ukmejpzeo diabetes, and chronic hypertension who will be admitted for management of right lower lobe pneumonia. PLAN: 1. Right lower lobe Pneumonia Suspect this is postviral pneumonia He had hypoxia at the outpatient surgical center Reviewed the chest x-ray and CT of the chest Plan: admit to medical floor/ continuous pulse ox & supplemental O2/ f/u sputum cultures, strep pneumo, legionella & blood cx /continue with Zosyn, add ciprofloxacin and to cover Pseudomonas/ Acetaminophen PRN for fever / DC Augmentin / he can follow-up with his PCP for vaccines an outpatient basis 2. Acute COPD Likely due to pneumonia ABG was unremarkable Plan: O2 / continuous pulse oximetry / aspiration precautions / Dunebs Q6H, Albuterol Q4HP, Solu-Medrol now, then switched to Prednisone + PPI tomorrow, antibiotics/ refer to Soil Conservation Technician for repeat PFTs and Pulmonary Rehab when ready for d/c 3. Status post right rotator cuff surgery. Plan: Pain control with MS Contin, and Roxicodone, meloxicam, along with Flexeril/PT, OT 4. NIDDM Plan: diabetic diet / f/u accuchecks while he is on steroids & A1C / hypoglycemia protocol / sliding scale insulin / hold oral anti-glycemics 5 .Gout. Plan: Resume allopurinol 6 .Chronic hypertension. Time: Resume lisinopril and hydrochlorothiazide 7. Tobacco abuse. Plan: Tobacco cessation education/nicotine patch DVT prophylaxis with Lovenox. Disposition likely home after more than 2 midnight's stay Vital Signs Vital Signs Date Time Temp Pulse Resp B/P (MAP) Pulse Ox O2 Delivery O2 Flow Rate FiO2 09/24/19 18:40 88 16 09/24/19 17:27 119/65 (83) 95 Nasal Cannula 1.0 09/24/19 17:12 98.4 Laboratory Data Labs 24H Laboratory Tests 2 09/24/19 17:27: Immature Granulocyte % (Auto) 0.4, Neutrophils (%) (Auto) 87.8H, Lymphocytes (%) (Auto) 8.2L, Monocytes (%) (Auto) 3.3, Eosinophils (%) (Auto) 0.1, Basophils (%) (Auto) 0.2, Neutrophils # (Auto) 11.0H, Lymphocytes # (Auto) 1.0L, Monocytes # (Auto) 0.4, Eosinophils # (Auto) 0.0, Basophils # (Auto) 0.0, Nucleated Red Blood Cells % (auto) 0.0, Prothrombin Time 13.8, Prothromb Time International Ratio 1.08, Anion Gap 6L, Glomerular Filtration Rate > 60.0, Calcium Level 8.8, Total Bilirubin 0.3, Direct Bilirubin 0.1, Aspartate Amino Transf (AST/SGOT) 24, Alanine Aminotransferase (ALT/SGPT) 29, Alkaline Phosphatase 64, Total Creatine Kinase 110, Creatine Kinase MB 3.6, Creatine Kinase MB Relative Index 3.27, Troponin I < 0.02, JR-Vng-Z-Type Natriuretic Peptide 98, Total Protein 7.1, Albumin 3.7, Albumin/Globulin Ratio 1.09, Thyroid Stimulating Hormone (TSH) 2.720 09/24/19 18:29: Blood Gas Bicarbonate Standard 22.7, Arterial Blood pH 7.406, Arterial Blood Partial Pressure CO2 35.7, Arterial Blood Partial Pressure O2 95.0, Arterial Blood Total CO2 23.0, Arterial Blood HCO3 21.9L, Arterial Blood Base Excess - 2.1L, Arterial Blood Oxygen Saturation 97.3 CBC/BMP Laboratory Tests 09/24/19 17:27 Home Medications Scheduled Allopurinol (Zyloprim) 300 Mg Tab, 300 MG PO DAILY Amoxicillin/Potassium Clav (Augmentin 875-125 Tablet) 1 Each Tablet, 875 MG PO BID Dapagliflozin Propanediol (Farxiga) 10 Mg Tab, 10 MG PO DAILY Dulaglutide (Trulicity) 1.5 Mg/0.5 Ml Inj, 1.5 MG SC 1XWK SUNDAY MORNING Hydrochlorothiazide (Hydrochlorothiazide) 25 Mg Tablet, 25 MG PO DAILY Lisinopril (Lisinopril) 5 Mg Tab, 5 MG PO DAILY Magnesium Oxide (Magnesium) 400 Mg Cap, 400 MG PO DAILY Meloxicam (Meloxicam) 15 Mg Tablet, 15 MG PO DAILY Metformin HCl (Metformin HCl) 500 Mg Tab, 1,000 MG PO BIDWM Morphine Sulfate (Ms Contin) 15 Mg Tablet.er, 15 MG PO BID HAS NOT PICKED UP YET. PRESCRIBED FOR AFTER SURGERY. Potassium Chloride (Potassium Chloride) 10 Meq Cap, 10 MEQ PO DAILY Rosuvastatin Calcium (Crestor) 20 Mg Tab, 20 MG PO DAILY Sitagliptin Phosphate (Januvia) 100 Mg Tab, 100 MG PO DAILY Umeclidinium Brm/Vilanterol Tr (Anoro Ellipta 62.5-25 Mcg INH) 1 Aer Aer, 1 PUFF INH DAILY Scheduled PRN Albuterol Sulfate (Ventolin Hfa) 108 Mcg/Act Aer, 2 PUFFS INH Q4H PRN for SHORTNESS OF BREATH Cyclobenzaprine HCl (Cyclobenzaprine HCl) 10 Mg Tab, 10 MG PO BID PRN for MUSCLE SPASMS Oxycodone HCl (Oxycodone HCl) 5 Mg Tablet, 1-2 TAB PO Q4H PRN for PAIN HAS NOT PICKED UP YET. PRESCRIBED FOR AFTER SURGERY. Allergies Coded Allergies: Meat (Verified Allergy, Severe, [place] MEAT, anaphlyaxis, 07/31/19) anaphlyaxis morphine (Verified Adverse Reaction, Intermediate, "BETANCOURT MY THROAT", 09/25/19) A-FIB/CHADSVASC A-FIB History Current/History of A-Fib/PAF?: No Current PO Anticoag Therapy: No JAQUAN MULLEN MD Sep 24, 2019 21:08
[2019-09-24] MEDS ORDERED: MAALOX 30 ML SUSP *UDC PO PRN (21:15)
[2019-09-24] MEDS ORDERED: IPRATROPIUM 0.5MG/ALBUTEROL 2.5MG INH SOL UD 3ML (DUONEB)(J7620) NEB ONE (21:15)
[2019-09-24] MEDS ORDERED: MOM 30ML SUSPENSION UDC PO PRN (21:15)
[2019-09-24] MEDS ORDERED: PIPERACILLIN/TAZOBACTAM SOD 3.375 GM in D5W MINI-BAG PLUS 50 ML IV ONE (21:15)
[2019-09-24] MEDS ORDERED: ALBUTEROL SULFATE 2.5 MG/0.5 ML INH NEB SOLN NEB PRN (21:15)
[2019-09-24] MEDS ORDERED: AUGM875T28 PO (21:34)
[2019-09-24] MEDS ORDERED: MS C15TA8 PO (21:34)
[2019-09-24] MEDS ORDERED: HYDR25TAB PO (21:34)
[2019-09-24] MEDS ORDERED: OXYC-517 PO (21:34)
[2019-09-24] MEDS ORDERED: MELO15TA28 PO (21:34)
[2019-09-25] VITALS (8 sets, daily range): BP systolic 101–125; BP diastolic 51–68
[2019-09-25] MEDS ORDERED: GLUCOSE 4 GM CHEW TABLET PO PRN (02:00)
[2019-09-25] MEDS ORDERED: DEXTROSE 50% 50 ML SYRINGE IV PRN (02:00)
[2019-09-25] MEDS ORDERED: GLUCAGON FOR INJ 1 MG VIAL (J1610) SC PRN (02:00)
[2019-09-25] MEDS ORDERED: CYCLOBENZAPRINE 10 MG TAB PO PRN (02:00)
[2019-09-25] MEDS ORDERED: CIPROFLOXACIN 400 MG in IV 1 EA IV SCH (02:00)
[2019-09-25] MEDS ORDERED: NICOTINE 14 MG/24 HR TRANSDERMAL TD PRN (02:15)
[2019-09-25] MEDS: IPRATROPIUM 0.5MG/ALBUTEROL 2.5MG INH SOL UD 3ML (DUONEB)(J7620) NEB SCH ×5 (02:56→23:27)
[2019-09-25] MEDS: PIPERACILLIN/TAZOBACTAM SOD 4.5 GM in D5W MINI-BAG PLUS 100 ML IV SCH ×4 (05:15→21:23)
[2019-09-25] MEDS: oxyCODONE 5MG TAB PO PRN ×2 (05:16→16:32)
[2019-09-25 06:25] LABS: HEMATOCRIT 45.7 % (42.0-52.0); HEMOGLOBIN 14.8 g/dl (13.5-17.5); MEAN CORPUSCULAR HEMOGLOBIN 30.2 pg (27.0-33.0); MEAN CORPUSCULAR HGB CONC 32.4 g/dl (32.0-36.5); MEAN CORPUSCULAR VOLUME 93.3 fl (80.0-96.0); PLATELET COUNT, AUTOMATED 162 10^3/uL (150-450); WHITE BLOOD COUNT 11.2 10^3/uL (4.0-10.0)
[2019-09-25 06:37] LABS: HEMOGLOBIN A1c 7.7 %
[2019-09-25 06:47] LABS: BLOOD UREA NITROGEN 22 MG/DL (7-18); CALCIUM LEVEL 8.6 MG/DL (8.8-10.2); CARBON DIOXIDE LEVEL 27 MEQ/L (21-32); CHLORIDE LEVEL 101 MEQ/L (98-107); CREATININE FOR GFR 0.96 MG/DL (0.70-1.30); GLOMERULAR FILTRATION RATE > 60.0 (>42); GLUCOSE, FASTING 224 MG/DL (70-100); POTASSIUM SERUM 4.3 MEQ/L (3.5-5.1); SODIUM LEVEL 136 MEQ/L (136-145)
[2019-09-25] MEDS: HumaLOG INSULIN (NovoLOG) PER UNIT SC SCH ×4 (07:52→21:00)
[2019-09-25] MEDS ORDERED: MORPHINE 15 MG SA TAB PO SCH (09:00)
[2019-09-25] MEDS: predniSONE 20 MG TAB PO SCH (09:00)
[2019-09-25] MEDS ORDERED: AZITHROMYCIN INJ 500 MG, VIAL MATE ADAPTER 1 EACH in D5W 250 ML IV SCH (09:45)
[2019-09-25] MEDS: DOCUSATE SODIUM 100 MG CAP PO SCH ×2 (10:56→21:25)
[2019-09-25] MEDS: ROSUVASTATIN 10 MG TAB (CRESTOR) PO SCH (10:57)
[2019-09-25] MEDS: POTASSIUM CHLORIDE 10 MEQ SR TABLET PO SCH (10:58)
[2019-09-25] MEDS: MAGNESIUM OXIDE 400 MG TAB (MAG-OX) PO SCH (10:58)
[2019-09-25] MEDS: hydroCHLOROthiazide 25 MG TAB PO SCH (10:58)
[2019-09-25] MEDS: MELOXICAM (MOBIC) 7.5 MG TAB PO SCH (10:59)
[2019-09-25] MEDS: oxyCODONE 10 MG CR TAB PO SCH ×2 (10:59→21:25)
[2019-09-25] MEDS: AZITHROMYCIN 250 MG TAB PO SCH (11:00)
[2019-09-25] MEDS: PANTOPRAZOLE 40MG TAB (PROTONIX) PO SCH (11:00)
[2019-09-25] MEDS: ACETAMINOPHEN TAB 650MG DOSE (2X325MG) PO PRN (11:00)
[2019-09-25] MEDS: allopurinoL 300 MG TAB PO SCH (11:00)
[2019-09-25] MEDS: lisinopriL 5 MG TAB PO SCH (11:02)
[2019-09-25] MEDS: ENOXAPARIN 40 MG/0.4 ML SYRINGE (J1650) SC SCH (11:03)
--- NOTE | 2019-09-25 13:48 | IPNPDOC ---
Text Note Date of Service The patient was seen on 09/25/19. NOTE Subjective: -Feels well, no complaints Objective: VITAL SIGNS: Please see below. GEN: well nourished, well developed/ NAD INTEGUMENT: right shoulder wrapped in clean and dry dressings, otherwise no rashes, and no bruising noted HEENT: NCAT, PERRLA, EOMI, cannula in place CVS: RRR, no mrg, radial and DP pulses intact, no edema LUNGS: Crackels in posterior right lower field, otherwise clear, able to speak full sentences, with nasal canula in place ABDOMEN: normoactive, soft, NTND, no masses or hepatosplenomegaly palpated MSK/EXTREMITIES: range of motion intact in all 4 extremities, except for right shoulder NEURO: CN 2-12 are grossly intact, speech is not dysarthric, moving all extremities except R shoulder PSYCH: AOx3 LABORATORY DATA: See below. IMAGING: Chest x-ray " IMPRESSION: Chronic fibrotic changes in the lung bases appear stable with no definite superimposed acute infiltrate." CT chest " IMPRESSION: 1. Subcutaneous emphysema with induration and trace fluid about the right shoulder consistent with recent surgery. 2. Mild coarse interstitial pulmonary prominence with minimal scattered bullous or cystic changes. There is mild right lower lobe infiltrate, atelectasis or consolidation consistent with pneumonia. 3. Borderline mediastinal nodes which may be reactive. " MICROBIOLOGY: Please see below. ASSESSMENT: 73-year-old M with COPD, gout, dkt-upwevpt-fzayvdocf diabetes, and chronic hypertension who was admitted for management of right lower lobe pneumonia that developed shortly after R rotator cuff surgery. PLAN: 1. Right lower lobe Pneumonia -supplemental O2 -f/u sputum cultures -f/u urine strep pneumo, legionella & blood cx -continue pip/tazo, dc cipro, add azithro for atypical coverage -Acetaminophen PRN for fever 2. Acute COPD exacerbation 2/2 pneumonia -ABG unremarkable -supplemental O2 -aspiration precautions -Dunebs Q6H, Albuterol Q4HP -s/p Solu-Medrol 125 IV, now on Prednisone 40 + PPI tomorrow, -will need to see Overhead Crane Operator outpatient for repeat PFTs and Pulmonary Rehab at discharge 3. Status post right rotator cuff surgery. -Pain control: switched MS Contin to oxycontin due to morphine allergy with thro at irritability vs. swelling, oxycodone PRN for breakthrough, meloxicam, along with Flexeril -PT, OT 4. NIDDM -diabetic diet -f/u accuchecks while he is on steroids & A1C -hypoglycemia protocol -sliding scale insulin -continue holding oral anti-hyperglycemics 5 .Gout. -continue home allopurinol 6 .Chronic hypertension. -continue lisinopril and hydrochlorothiazide 7. Tobacco abuse. -nicotine patch -Had discussion on harmful effects of smoking, planning to quit DVT prophylaxis with Lovenox. Disposition likely home after more than 2 midnight's stay VS,[place], I+O VS, [place], I+O Laboratory Tests 09/24/19 17:27 09/25/19 05:38 Vital Signs Date Time Temp Pulse Resp B/P (MAP) Pulse Ox O2 Delivery O2 Flow Rate FiO2 09/25/19 11:02 81 121/67 (85) 91 09/25/19 10:59 18 09/25/19 08:00 3.0 09/25/19 06:00 98.5 Nasal Cannula I&O- Last 24 Hours up to 6 AM 09/25/19 06:00 Intake Total 0 ml Output Total 600 ml Balance -600 ml ARTURO FRIEDMAN MD Sep 25, 2019 13:48
--- NOTE | 2019-09-25 17:55 | ECGEPIP ---
[facility] - ED Test Date: 2019-09-24 Pat Name: RAUL FRAGOSO Department: Room: - Gender: Male Media Analyst: maty : 1945 Requested By: ERIKA Traore Order Number: [id number] Reading MD: Lauren Mir Measurements Intervals [place] Rate: 80 P: 56 [place]: 204 QRS: 65 QRSD: 108 T: 21 QT: 382 QTc: 443 Interpretive Statements SINUS RHYTHM WITH OCCASIONAL SUPRAVENTRICULAR PREMATURE COMPLEXES SIMILAR 09/16/19 Electronically Signed on 09-25-2019 17:55:45 EST by Lauren Mir
[2019-09-26] MEDS ORDERED: UNRESOLVED PATIENT OWN MED ORDER XX SCH (00:01)
[2019-09-26 02:00] VITALS: BP 124/62
[2019-09-26] MEDS: oxyCODONE 5MG TAB PO PRN ×2 (03:10→13:58)
[2019-09-26 04:00] VITALS: BP 127/68
[2019-09-26] MEDS: ACETAMINOPHEN TAB 650MG DOSE (2X325MG) PO PRN (04:29)
[2019-09-26] MEDS: PIPERACILLIN/TAZOBACTAM SOD 4.5 GM in D5W MINI-BAG PLUS 100 ML IV SCH ×4 (04:30→23:46)
[2019-09-26 06:09] VITALS: BP 123/71
[2019-09-26] MEDS: IPRATROPIUM 0.5MG/ALBUTEROL 2.5MG INH SOL UD 3ML (DUONEB)(J7620) NEB SCH ×3 (07:40→20:00)
[2019-09-26] MEDS: AZITHROMYCIN 250 MG TAB PO SCH (08:59)
[2019-09-26] MEDS: ENOXAPARIN 40 MG/0.4 ML SYRINGE (J1650) SC SCH (08:59)
[2019-09-26] MEDS: MAGNESIUM OXIDE 400 MG TAB (MAG-OX) PO SCH (08:59)
[2019-09-26] MEDS: predniSONE 20 MG TAB PO SCH ×2 (08:59→09:00)
[2019-09-26] MEDS: POTASSIUM CHLORIDE 10 MEQ SR TABLET PO SCH (08:59)
[2019-09-26] MEDS ORDERED: PREVNAR 13 VACCINE SYRINGE (CPT CODE:90670) IM ONE (09:00)
[2019-09-26] MEDS: DOCUSATE SODIUM 100 MG CAP PO SCH ×2 (09:00→21:15)
[2019-09-26] MEDS: ROSUVASTATIN 10 MG TAB (CRESTOR) PO SCH (09:00)
[2019-09-26] MEDS: MELOXICAM (MOBIC) 7.5 MG TAB PO SCH (09:01)
[2019-09-26] MEDS: allopurinoL 300 MG TAB PO SCH (09:02)
[2019-09-26] MEDS: lisinopriL 5 MG TAB PO SCH (09:02)
[2019-09-26] MEDS: PANTOPRAZOLE 40MG TAB (PROTONIX) PO SCH (09:02)
[2019-09-26] MEDS: oxyCODONE 10 MG CR TAB PO SCH ×2 (09:03→21:15)
[2019-09-26] MEDS: HumaLOG INSULIN (NovoLOG) PER UNIT SC SCH ×4 (09:04→20:38)
[2019-09-26] MEDS: hydroCHLOROthiazide 25 MG TAB PO SCH (09:38)
--- NOTE | 2019-09-26 13:27 | IPNPDOC ---
Text Note Date of Service The patient was seen on 09/26/19. NOTE Subjective: -Feels well, no complaints Objective: VITAL SIGNS: Please see below. GEN: well nourished, well developed/ NAD INTEGUMENT: right shoulder wrapped in clean and dry dressings, otherwise no rashes, and no bruising noted HEENT: NCAT, PERRLA, EOMI, cannula in place CVS: RRR, no mrg, radial and DP pulses intact, no edema LUNGS: Persistent crackles in posterior right lower field, otherwise clear, able to speak full sentences, with nasal canula in place now on 1L ABDOMEN: normoactive, soft, NTND, no masses or hepatosplenomegaly palpated MSK/EXTREMITIES: range of motion intact in all 4 extremities, except for right shoulder NEURO: CN 2-12 are grossly intact, speech is not dysarthric, moving all extremities except R shoulder PSYCH: AOx3 LABORATORY DATA: Pending IMAGING: Chest x-ray " IMPRESSION: Chronic fibrotic changes in the lung bases appear stable with no definite superimposed acute infiltrate." CT chest " IMPRESSION: 1. Subcutaneous emphysema with induration and trace fluid about the right shoulder consistent with recent surgery. 2. Mild coarse interstitial pulmonary prominence with minimal scattered bullous or cystic changes. There is mild right lower lobe infiltrate, atelectasis or consolidation consistent with pneumonia. 3. Borderline mediastinal nodes which may be reactive. " MICROBIOLOGY: gram stain with GPCs in pairs and chains as well as few GNRs ASSESSMENT: 73-year-old M with COPD, gout, xqk-tqmumdo-opwsmvhum diabetes, and chronic hypertension who was admitted for management of right lower lobe pneumonia that developed shortly after R rotator cuff surgery. PLAN: 1. Right lower lobe Pneumonia -supplemental O2 -f/u sputum cultures --> gram stain with GPCs in pairs and chains as well as few GNRs -f/u urine strep pneumo, legionella & blood cx -continue pip/tazo/azithro day 2 -Acetaminophen PRN for fever 2. Acute COPD exacerbation 2/2 pneumonia -ABG unremarkable -supplemental O2 -aspiration precautions -Dunebs Q6H, Albuterol Q4HP -s/p Solu-Medrol 125 IV, now on Prednisone 40 + PPI tomorrow, -will need to see Cardiopulmonary Supervisor outpatient for repeat PFTs and Pulmonary Rehab at discharge 3. Status post right rotator cuff surgery. -Pain control: oxycontin BID, oxycodone PRN for breakthrough, meloxicam and Flexeril -PT, OT 4. NIDDM -diabetic diet -f/u accuchecks while he is on steroids & A1C -hypoglycemia protocol -sliding scale insulin -continue holding oral anti-hyperglycemics 5 .Gout. -continue home allopurinol 6 .Chronic hypertension. -continue lisinopril and hydrochlorothiazide 7. Tobacco abuse. -nicotine patch DVT prophylaxis with Lovenox. Disposition: home after culture data result for PO options. VS,Fishbone, I+O VS, Fishbone, I+O Vital Signs Date Time Temp Pulse Resp B/P (MAP) Pulse Ox O2 Delivery O2 Flow Rate FiO2 09/26/19 06:09 97.6 72 20 123/71 (88) 93 Nasal Cannula 1.0 I&O- Last 24 Hours up to 6 AM 09/26/19 06:00 Intake Total 2880 ml Output Total 1400 ml Balance 1480 ml ARTURO FRIEDMAN MD Sep 26, 2019 09:04
[2019-09-26 14:00] VITALS: BP 115/64
[2019-09-26 20:02] VITALS: BP 131/71
[2019-09-27] MEDS: IPRATROPIUM 0.5MG/ALBUTEROL 2.5MG INH SOL UD 3ML (DUONEB)(J7620) NEB SCH ×4 (02:00→20:38)
[2019-09-27 02:03] VITALS: BP 127/72
[2019-09-27] MEDS: oxyCODONE 5MG TAB PO PRN (02:46)
[2019-09-27] MEDS: PIPERACILLIN/TAZOBACTAM SOD 4.5 GM in D5W MINI-BAG PLUS 100 ML IV SCH (04:40)
[2019-09-27 06:18] VITALS: BP 126/72
[2019-09-27 07:03] LABS: HEMATOCRIT 48.4 % (42.0-52.0); HEMOGLOBIN 15.7 g/dl (13.5-17.5); MEAN CORPUSCULAR HEMOGLOBIN 30.3 pg (27.0-33.0); MEAN CORPUSCULAR HGB CONC 32.4 g/dl (32.0-36.5); MEAN CORPUSCULAR VOLUME 93.3 fl (80.0-96.0); PLATELET COUNT, AUTOMATED 188 10^3/uL (150-450); RED BLOOD COUNT 5.19 10^6/uL (4.30-6.10); WHITE BLOOD COUNT 11.9 10^3/uL (4.0-10.0)
[2019-09-27 07:37] LABS: BLOOD UREA NITROGEN 21 MG/DL (7-18); CALCIUM LEVEL 8.8 MG/DL (8.8-10.2); CARBON DIOXIDE LEVEL 30 MEQ/L (21-32); CHLORIDE LEVEL 99 MEQ/L (98-107); CREATININE FOR GFR 0.89 MG/DL (0.70-1.30); GLOMERULAR FILTRATION RATE > 60.0 (>42); GLUCOSE, FASTING 170 MG/DL (70-100); POTASSIUM SERUM 4.3 MEQ/L (3.5-5.1); SODIUM LEVEL 136 MEQ/L (136-145)
[2019-09-27] MEDS: allopurinoL 300 MG TAB PO SCH (08:12)
[2019-09-27] MEDS: HumaLOG INSULIN (NovoLOG) PER UNIT SC SCH ×4 (08:12→20:32)
[2019-09-27] MEDS: predniSONE 20 MG TAB PO SCH (08:12)
[2019-09-27] MEDS: DOCUSATE SODIUM 100 MG CAP PO SCH ×2 (08:12→20:33)
[2019-09-27] MEDS: PANTOPRAZOLE 40MG TAB (PROTONIX) PO SCH (08:13)
[2019-09-27] MEDS: ROSUVASTATIN 10 MG TAB (CRESTOR) PO SCH (08:13)
[2019-09-27] MEDS: hydroCHLOROthiazide 25 MG TAB PO SCH (08:13)
[2019-09-27] MEDS: MELOXICAM (MOBIC) 7.5 MG TAB PO SCH (08:13)
[2019-09-27] MEDS: MAGNESIUM OXIDE 400 MG TAB (MAG-OX) PO SCH (08:13)
[2019-09-27] MEDS: POTASSIUM CHLORIDE 10 MEQ SR TABLET PO SCH (08:13)
[2019-09-27] MEDS: AZITHROMYCIN 250 MG TAB PO SCH (08:14)
[2019-09-27] MEDS: lisinopriL 5 MG TAB PO SCH (08:14)
[2019-09-27] MEDS: ENOXAPARIN 40 MG/0.4 ML SYRINGE (J1650) SC SCH (08:14)
[2019-09-27] MEDS: oxyCODONE 10 MG CR TAB PO SCH ×2 (08:15→20:34)
[2019-09-27] MEDS ORDERED: PRED20TA PO (09:58)
[2019-09-27] MEDS ORDERED: LEVA750T7 PO (09:58)
[2019-09-27 10:00] VITALS: BP 128/80
[2019-09-27] MEDS: LevoFLOXacin 750 MG TABLET PO SCH (12:08)
[2019-09-27 14:00] VITALS: BP 122/67
--- NOTE | 2019-09-27 14:14 | IPNPDOC ---
Text Note Date of Service The patient was seen on 09/27/19. NOTE Subjective: -Feels poorly this morning, no BM for 5d asking for an enema -Still requiring 1-2L of oxygen Objective: VITAL SIGNS: Please see below. GEN: well nourished, well developed/ NAD INTEGUMENT: right shoulder wrapped in clean and dry dressings, otherwise no rashes, and no bruising noted HEENT: NCAT, PERRLA, EOMI, cannula in place CVS: RRR, no mrg, radial and DP pulses intact, no edema LUNGS: Persistent crackles in posterior right lower field, otherwise clear, able to speak full sentences, with nasal canula in place ABDOMEN: normoactive, soft, NTND, no masses or hepatosplenomegaly palpated MSK/EXTREMITIES: range of motion intact in all 4 extremities, except for right shoulder NEURO: CN 2-12 are grossly intact, speech is not dysarthric, moving all extremities except R shoulder PSYCH: AOx3 LABORATORY DATA: Reviewed. Stable. See below IMAGING: Chest x-ray " IMPRESSION: Chronic fibrotic changes in the lung bases appear stable with no definite superimposed acute infiltrate." CT chest " IMPRESSION: 1. Subcutaneous emphysema with induration and trace fluid about the right shoulder consistent with recent surgery. 2. Mild coarse interstitial pulmonary prominence with minimal scattered bullous or cystic changes. There is mild right lower lobe infiltrate, atelectasis or consolidation consistent with pneumonia. 3. Borderline mediastinal nodes which may be reactive. " MICROBIOLOGY: gram stain with GPCs in pairs and chains as well as few GNRs ASSESSMENT: 73-year-old M with COPD, gout, dhh-tobftvy-urtdfdtdn diabetes, and chronic hypertension who was admitted for management of right lower lobe pneumonia that developed shortly after R rotator cuff surgery. PLAN: 1. Right lower lobe Pneumonia -supplemental O2 -f/u sputum cultures --> gram stain with GPCs in pairs and chains as well as few GNRs -f/u urine strep pneumo, legionella & blood cx -discontinue pip/tazo/azithro--> start levaquin (day 3 of antibiotics) -Acetaminophen PRN for fever 2. Acute COPD exacerbation 2/2 pneumonia -ABG unremarkable -supplemental O2 -aspiration precautions -Dunebs Q6H, Albuterol Q4HP -s/p Solu-Medrol 125 IV, now on Prednisone 40 + PPI tomorrow, -will need to see [employer] outpatient for repeat PFTs and Pulmonary Rehab at discharge 3. Status post right rotator cuff surgery. -Pain control: oxycontin BID, oxycodone PRN for breakthrough, meloxicam and Flexeril -PT, OT 4. NIDDM -diabetic diet -FSBG AC/HS while he is on steroids -hypoglycemia protocol -sliding scale insulin -continue holding oral anti-hyperglycemics 5 .Gout. -continue home allopurinol 6 .Chronic hypertension. -continue lisinopril and hydrochlorothiazide 7. Tobacco abuse. -nicotine patch 8. Constipation: Likely 2/2 narcotic pain meds -is on a bowel regimen, but will give fleet enema DVT prophylaxis with Lovenox. Disposition: still hypoxemic VS,[place], I+O VS, [place], I+O Laboratory Tests 09/27/19 06:24 Vital Signs Date Time Temp Pulse Resp B/P (MAP) Pulse Ox O2 Delivery O2 Flow Rate FiO2 09/27/19 08:15 18 Room Air 09/27/19 08:14 126/72 09/27/19 06:18 98.5 77 92 1.0 I&O- Last 24 Hours up to 6 AM 09/27/19 06:00 Intake Total 2550 ml Output Total 1975 ml Balance 575 ml ARTURO FRIEDMAN MD Sep 27, 2019 14:14
[2019-09-27] MEDS ORDERED: FLEET ENEMA PR ONE (15:00)
[2019-09-27 18:00] VITALS: BP 118/72
[2019-09-27 20:09] VITALS: BP 119/72
[2019-09-28] MEDS: IPRATROPIUM 0.5MG/ALBUTEROL 2.5MG INH SOL UD 3ML (DUONEB)(J7620) NEB SCH ×4 (01:00→19:44)
[2019-09-28 02:00] VITALS: BP 121/74
[2019-09-28] MEDS: LevoFLOXacin 750 MG TABLET PO SCH (05:36)
[2019-09-28 05:39] VITALS: BP 122/70
[2019-09-28 06:56] LABS: HEMATOCRIT 48.5 % (42.0-52.0); HEMOGLOBIN 15.8 g/dl (13.5-17.5); MEAN CORPUSCULAR HEMOGLOBIN 30.3 pg (27.0-33.0); MEAN CORPUSCULAR HGB CONC 32.6 g/dl (32.0-36.5); MEAN CORPUSCULAR VOLUME 92.9 fl (80.0-96.0); PLATELET COUNT, AUTOMATED 197 10^3/uL (150-450); RED BLOOD COUNT 5.22 10^6/uL (4.30-6.10); WHITE BLOOD COUNT 10.9 10^3/uL (4.0-10.0)
[2019-09-28 07:27] LABS: BLOOD UREA NITROGEN 25 MG/DL (7-18); CALCIUM LEVEL 9.4 MG/DL (8.8-10.2); CARBON DIOXIDE LEVEL 27 MEQ/L (21-32); CHLORIDE LEVEL 96 MEQ/L (98-107); CREATININE FOR GFR 0.95 MG/DL (0.70-1.30); GLOMERULAR FILTRATION RATE > 60.0 (>42); GLUCOSE, FASTING 169 MG/DL (70-100); SODIUM LEVEL 133 MEQ/L (136-145)
[2019-09-28] MEDS: DOCUSATE SODIUM 100 MG CAP PO SCH (08:23)
[2019-09-28] MEDS: HumaLOG INSULIN (NovoLOG) PER UNIT SC SCH ×4 (08:23→20:17)
[2019-09-28] MEDS: ROSUVASTATIN 10 MG TAB (CRESTOR) PO SCH (08:23)
[2019-09-28] MEDS: PANTOPRAZOLE 40MG TAB (PROTONIX) PO SCH (08:24)
[2019-09-28] MEDS: POTASSIUM CHLORIDE 10 MEQ SR TABLET PO SCH (08:24)
[2019-09-28] MEDS: hydroCHLOROthiazide 25 MG TAB PO SCH (08:24)
[2019-09-28] MEDS: lisinopriL 5 MG TAB PO SCH (08:24)
[2019-09-28] MEDS: MELOXICAM (MOBIC) 7.5 MG TAB PO SCH (08:24)
[2019-09-28] MEDS: MAGNESIUM OXIDE 400 MG TAB (MAG-OX) PO SCH (08:25)
[2019-09-28] MEDS: ENOXAPARIN 40 MG/0.4 ML SYRINGE (J1650) SC SCH (08:25)
[2019-09-28] MEDS: allopurinoL 300 MG TAB PO SCH (08:25)
[2019-09-28] MEDS: predniSONE 20 MG TAB PO SCH (08:25)
[2019-09-28] MEDS: oxyCODONE 10 MG CR TAB PO SCH ×2 (08:26→20:17)
[2019-09-28] MEDS ORDERED: DULAGLUTIDE 1.5 MG SC SCH (09:00)
[2019-09-28 10:00] VITALS: BP 121/70
--- NOTE | 2019-09-28 11:08 | IPNPDOC ---
Text Note Date of Service The patient was seen on 09/28/19. NOTE Subjective: -Feels better this morning, had already done 2 laps around the unit by the time I saw him. Told me that unfortunately his was also diagnosed with PNA as well, and is home recovering and on antibiotics. -Still requiring 1-2L of oxygen Objective: VITAL SIGNS: Please see below. GEN: well nourished, well developed/ NAD INTEGUMENT: right shoulder wrapped in clean and dry dressings, otherwise no rashes, and no bruising noted HEENT: NCAT, PERRLA, EOMI, cannula in place CVS: RRR, no mrg, radial and DP pulses intact, no edema LUNGS: Persistent crackles in posterior right lower field, otherwise clear, able to speak full sentences, with nasal canula in place ABDOMEN: normoactive, soft, NTND, no masses or hepatosplenomegaly palpated MSK/EXTREMITIES: range of motion intact in all 4 extremities, except for right shoulder NEURO: CN 2-12 are grossly intact, speech is not dysarthric, moving all extremities except R shoulder PSYCH: AOx3 LABORATORY DATA: Reviewed. Stable. See below IMAGING: Chest x-ray " IMPRESSION: Chronic fibrotic changes in the lung bases appear stable with no definite superimposed acute infiltrate." CT chest " IMPRESSION: 1. Subcutaneous emphysema with induration and trace fluid about the right shoulder consistent with recent surgery. 2. Mild coarse interstitial pulmonary prominence with minimal scattered bullous or cystic changes. There is mild right lower lobe infiltrate, atelectasis or consolidation consistent with pneumonia. 3. Borderline mediastinal nodes which may be reactive. " MICROBIOLOGY: gram stain with GPCs in pairs and chains as well as few GNRs ASSESSMENT: 73-year-old M with COPD, gout, gio-neydczl-tboyesdvk diabetes, and chronic hypertension who was admitted for management of right lower lobe pneumonia that developed shortly after R rotator cuff surgery. PLAN: 1. Right lower lobe Pneumonia -supplemental O2 -f/u sputum cultures --> gram stain with GPCs in pairs and chains as well as few GNRs -f/u urine strep pneumo, legionella & blood cx -discontinue pip/tazo/azithro--> started levaquin 09/27 (day 4 of antibiotics) -Acetaminophen PRN for fever 2. Acute COPD exacerbation 2/2 pneumonia -ABG unremarkable -supplemental O2 -aspiration precautions -Dunebs Q6H, Albuterol Q4HP -s/p Solu-Medrol 125 IV, now on Prednisone 40 + PPI tomorrow, -will need to see [facility] outpatient for repeat PFTs and Pulmonary Rehab at discharge 3. Status post right rotator cuff surgery. -Pain control: oxycontin BID, oxycodone PRN for breakthrough, meloxicam and Flexeril -PT, OT 4. NIDDM -diabetic diet -FSBG AC/HS while he is on steroids -hypoglycemia protocol -sliding scale insulin -continue holding oral anti-hyperglycemics 5 .Gout. -continue home allopurinol 6 .Chronic hypertension. -continue lisinopril and hydrochlorothiazide 7. Tobacco abuse. -nicotine patch 8. Constipation: Likely 2/2 narcotic pain meds -is on a bowel regimen, but will give fleet enema DVT prophylaxis with Lovenox. Disposition: still hypoxemic VS,Fishbone, I+O VS, Fishbone, I+O Laboratory Tests 09/28/19 06:30 Vital Signs Date Time Temp Pulse Resp B/P (MAP) Pulse Ox O2 Delivery O2 Flow Rate FiO2 09/28/19 10:30 1.0 09/28/19 10:00 98.4 89 18 121/70 (87) 88 Nasal Cannula I&O- Last 24 Hours up to 6 AM 09/28/19 06:00 Intake Total 1590 ml Output Total 475 ml Balance 1115 ml ARTURO FRIEDMAN MD Sep 28, 2019 11:08
[2019-09-28 14:00] VITALS: BP 119/67
[2019-09-28 16:00] VITALS: BP 120/68
[2019-09-28] MEDS ORDERED: BISACODYL 10 MG SUPP PR ONE (18:00)
[2019-09-28] MEDS: MIRALAX *UNIT DOSE* 17GM PACKET PO SCH (18:04)
[2019-09-28 20:00] VITALS: BP 115/65
[2019-09-29] MEDS: IPRATROPIUM 0.5MG/ALBUTEROL 2.5MG INH SOL UD 3ML (DUONEB)(J7620) NEB SCH ×2 (02:00→08:13)
[2019-09-29] MEDS: LevoFLOXacin 750 MG TABLET PO SCH (05:23)
[2019-09-29 05:35] VITALS: BP 116/71
[2019-09-29 05:55] LABS: HEMATOCRIT 47.2 % (42.0-52.0); HEMOGLOBIN 15.8 g/dl (13.5-17.5); MEAN CORPUSCULAR HEMOGLOBIN 30.4 pg (27.0-33.0); MEAN CORPUSCULAR HGB CONC 33.5 g/dl (32.0-36.5); MEAN CORPUSCULAR VOLUME 90.8 fl (80.0-96.0); PLATELET COUNT, AUTOMATED 206 10^3/uL (150-450); WHITE BLOOD COUNT 11.7 10^3/uL (4.0-10.0)
[2019-09-29 06:20] LABS: BLOOD UREA NITROGEN 26 MG/DL (7-18); CALCIUM LEVEL 9.3 MG/DL (8.8-10.2); CARBON DIOXIDE LEVEL 29 MEQ/L (21-32); CHLORIDE LEVEL 98 MEQ/L (98-107); CREATININE FOR GFR 0.97 MG/DL (0.70-1.30); GLOMERULAR FILTRATION RATE > 60.0 (>42); GLUCOSE, FASTING 142 MG/DL (70-100); POTASSIUM SERUM 4.2 MEQ/L (3.5-5.1); SODIUM LEVEL 135 MEQ/L (136-145)
[2019-09-29] MEDS: ENOXAPARIN 40 MG/0.4 ML SYRINGE (J1650) SC SCH (08:22)
[2019-09-29] MEDS: HumaLOG INSULIN (NovoLOG) PER UNIT SC SCH (08:22)
[2019-09-29] MEDS: ROSUVASTATIN 10 MG TAB (CRESTOR) PO SCH (08:22)
[2019-09-29] MEDS: allopurinoL 300 MG TAB PO SCH (08:22)
[2019-09-29] MEDS: MIRALAX *UNIT DOSE* 17GM PACKET PO SCH (08:22)
[2019-09-29 08:23] VITALS: BP 116/71
[2019-09-29] MEDS: POTASSIUM CHLORIDE 10 MEQ SR TABLET PO SCH (08:23)
[2019-09-29] MEDS: hydroCHLOROthiazide 25 MG TAB PO SCH (08:23)
[2019-09-29] MEDS: PANTOPRAZOLE 40MG TAB (PROTONIX) PO SCH (08:23)
[2019-09-29] MEDS: lisinopriL 5 MG TAB PO SCH (08:23)
[2019-09-29] MEDS: predniSONE 20 MG TAB PO SCH (08:23)
[2019-09-29] MEDS: MAGNESIUM OXIDE 400 MG TAB (MAG-OX) PO SCH (08:23)
[2019-09-29] MEDS: MELOXICAM (MOBIC) 7.5 MG TAB PO SCH (08:23)
[2019-09-29] MEDS: oxyCODONE 10 MG CR TAB PO SCH (08:24)
--- NOTE | 2019-09-29 09:27 | DS.PDOC ---
Discharge Summary General Date of Admission Sep 24, 2019 at 21:07 Date of Discharge 09/29/2019 Attending Physician: ARTURO FRIEDMAN MD Discharge Summary PROCEDURES PERFORMED DURING STAY: None ADMITTING DIAGNOSES: 1. PNA DISCHARGE DIAGNOSES: 1. Community acquired pneumonia 2. COPD exacerbation 3. Gout 4. Chronic hypertension 5. NIDDM 6. Dyslipidemia 7. History of nephrolithiasis 8. Status post recent right rotator cuff surgery COMPLICATIONS/CHIEF COMPLAINT: Copd With Acute Exacerbation,Pneumonia. HISTORY OF PRESENT ILLNESS: 73-year-old man who was sent from an outpatient surgical center because of postoperative hypoxia. He had a right rotator cuff surgery done and developed a cough without fevers or chills and presented to urgent care center where he was given a prescription for prednisone and Augmentin in the setting of his recently being diagnosed with bronchitis. HOSPITAL COURSE: He arrived hemodynamically stable and afebrile with mild hypoxemia requiring supplemental O2. He was started on zosyn/cipro that was switched to zosyn/azithro and now levaquin for CAP. He had blood and sputum and the blood cultures were negative while sputum grew GPCs in pairs and chains and GPRs. He otherwise was also given solumedrol 125 IV x1 and then switched to pred 40 daily for a COPD exacerbation in the setting of PNA. He is now being discharged home with pred 40 to complete a 5d course and levaquin to complete a 7d course and supplemental oxygen requiring 1L nasal canula. DISCHARGE MEDICATIONS: Please see below. ALLERGIES: Please see below. PHYSICAL EXAMINATION ON DISCHARGE: VITAL SIGNS: Please see below. VITAL SIGNS: Please see below. GEN: well nourished, well developed/ NAD INTEGUMENT: right shoulder wrapped in clean and dry dressings, otherwise no rashes, and no bruising noted HEENT: NCAT, PERRLA, EOMI, cannula in place CVS: RRR, no mrg, radial and DP pulses intact, no edema LUNGS: Trace crackles in posterior right lower field, otherwise clear, able to speak full sentences ABDOMEN: normoactive, soft, NTND, no masses or hepatosplenomegaly palpated MSK/EXTREMITIES: range of motion intact in all 4 extremities, except for right shoulder NEURO: CN 2-12 are grossly intact, speech is not dysarthric, moving all extremities except R shoulder PSYCH: AOx3 LABORATORY DATA: Please see below. IMAGING: Chest x-ray " IMPRESSION: Chronic fibrotic changes in the lung bases appear stable with no definite superimposed acute infiltrate." CT chest " IMPRESSION: 1. Subcutaneous emphysema with induration and trace fluid about the right shoulder consistent with recent surgery. 2. Mild coarse interstitial pulmonary prominence with minimal scattered bullous or cystic changes. There is mild right lower lobe infiltrate, atelectasis or consolidation consistent with pneumonia. 3. Borderline mediastinal nodes which may be reactive. " PROGNOSIS: Good ACTIVITY: As tolerated DIET: Consistent carb DISCHARGE PLAN: Home with levaquin and pred 40 courses, and prompt PCP follow up within 1 week of discharge DISPOSITION: Home DISCHARGE INSTRUCTIONS: 1. Home with levaquin for 5 more days and pred 40 for 4 more days. Prompt PCP follow up within 1 week of discharge ITEMS TO FOLLOWUP ON ON OUTPATIENT: 1. PNA resolution 2. Ortho follow up as scheduled DISCHARGE CONDITION: Stable TIME SPENT ON DISCHARGE: 42 minutes. Vital Signs/I&Os Vital Signs Date Time Temp Pulse Resp B/P (MAP) Pulse Ox O2 Delivery O2 Flow Rate FiO2 09/27/19 08:15 18 Room Air 09/27/19 08:14 126/72 09/27/19 06:18 98.5 77 92 1.0 I&O- Last 24 Hours up to 6 AM 09/27/19 06:00 Intake Total 2550 ml Output Total 1975 ml Balance 575 ml Laboratory Data Labs 24H Laboratory Tests 2 09/26/19 11:11: Bedside Glucose (Misc Panel) 157H 09/26/19 16:36: Bedside Glucose (Misc Panel) 127H 09/26/19 20:01: Bedside Glucose (Misc Panel) 197H 09/27/19 06:24: Nucleated Red Blood Cells % (auto) 0.0, Anion Gap 7L, Glomerular Filtration Rate > 60.0, Calcium Level 8.8 CBC/BMP Laboratory Tests 09/27/19 06:24 FSBS Laboratory Tests Test 09/26/19 11:11 09/26/19 16:36 09/26/19 20:01 Range/Units Bedside Glucose (Misc Panel) 157 127 197 83-110 MG/DL Microbiology Microbiology 09/25/19 Gram Stain - Final, Complete 09/25/19 Sputum Culture - Final, Complete 09/25/19 Blood Culture - Preliminary, Resulted No Growth after 48 hours. All Specime... Discharge Medications Scheduled Allopurinol (Zyloprim) 300 Mg Tab, 300 MG PO DAILY, (Reported) Amoxicillin/Potassium Clav (Augmentin 875-125 Tablet) 1 Each Tablet, 875 MG PO BID, (Reported) Dapagliflozin Propanediol (Farxiga) 10 Mg Tab, 10 MG PO DAILY, (Reported) Dulaglutide (Trulicity) 1.5 Mg/0.5 Ml Inj, 1.5 MG SC 1XWK, (Reported) SUNDAY MORNING Hydrochlorothiazide (Hydrochlorothiazide) 25 Mg Tablet, 25 MG PO DAILY, (Reported) Levofloxacin (Levaquin) 750 Mg Tablet, 750 MG PO DAILY@06 Lisinopril (Lisinopril) 5 Mg Tab, 5 MG PO DAILY, (Reported) Magnesium Oxide (Magnesium) 400 Mg Cap, 400 MG PO DAILY, (Reported) Meloxicam (Meloxicam) 15 Mg Tablet, 15 MG PO DAILY, (Reported) Metformin HCl (Metformin HCl) 500 Mg Tab, 1,000 MG PO BIDWM, (Reported) Morphine Sulfate (Ms Contin) 15 Mg Tablet.er, 15 MG PO BID, (Reported) HAS NOT PICKED UP YET. PRESCRIBED FOR AFTER SURGERY. Potassium Chloride (Potassium Chloride) 10 Meq Cap, 10 MEQ PO DAILY, (Reported) Prednisone (Prednisone) 20 Mg Tablet, 40 MG PO DAILY Rosuvastatin Calcium (Crestor) 20 Mg Tab, 20 MG PO DAILY, (Reported) Sitagliptin Phosphate (Januvia) 100 Mg Tab, 100 MG PO DAILY, (Reported) Umeclidinium Brm/Vilanterol Tr (Anoro Ellipta 62.5-25 Mcg INH) 1 Aer Aer, 1 PUFF INH DAILY, (Reported) Scheduled PRN Albuterol Sulfate (Ventolin Hfa) 108 Mcg/Act Aer, 2 PUFFS INH Q4H PRN for SHOR TNESS OF BREATH, (Reported) Cyclobenzaprine HCl (Cyclobenzaprine HCl) 10 Mg Tab, 10 MG PO BID PRN for MUSCLE SPASMS, (Reported) Oxycodone HCl (Oxycodone HCl) 5 Mg Tablet, 1-2 TAB PO Q4H PRN for PAIN, (Reported) HAS NOT PICKED UP YET. PRESCRIBED FOR AFTER SURGERY. Allergies Coded Allergies: Meat (Verified Allergy, Severe, [place] MEAT, anaphlyaxis, 10/17/19) anaphlyaxis morphine (Verified Adverse Reaction, Intermediate, "BETANCOURT MY THROAT", 09/25/19) ARTURO FRIEDMAN MD Sep 27, 2019 09:56
--- NOTE | 2019-09-29 09:28 | IPNPDOC ---
Text Note Date of Service The patient was seen on 09/29/19. NOTE Subjective: -Feels the same as yesterday, better but not yet off supplemental oxygen. Objective: VITAL SIGNS: Please see below. HDS and afebrile. GEN: well nourished, well developed/ NAD INTEGUMENT: right shoulder wrapped in clean and dry dressings, otherwise no rashes, and no bruising noted HEENT: NCAT, PERRLA, EOMI, cannula in place CVS: RRR, no mrg, radial and DP pulses intact, no edema LUNGS: Trace crackles in posterior right lower field, otherwise clear, able to s peak full sentences, with nasal canula in place ABDOMEN: normoactive, soft, NTND, no masses or hepatosplenomegaly palpated MSK/EXTREMITIES: range of motion intact in all 4 extremities, except for right shoulder NEURO: CN 2-12 are grossly intact, speech is not dysarthric, moving all extremities except R shoulder PSYCH: AOx3 LABORATORY DATA: Reviewed. Stable. See below IMAGING: Chest x-ray " IMPRESSION: Chronic fibrotic changes in the lung bases appear stable with no definite superimposed acute infiltrate." CT chest " IMPRESSION: 1. Subcutaneous emphysema with induration and trace fluid about the right shoulder consistent with recent surgery. 2. Mild coarse interstitial pulmonary prominence with minimal scattered bullous or cystic changes. There is mild right lower lobe infiltrate, atelectasis or consolidation consistent with pneumonia. 3. Borderline mediastinal nodes which may be reactive. " MICROBIOLOGY: gram stain with GPCs in pairs and chains as well as few GNRs, sputum culture showed normal manuel ASSESSMENT: 73-year-old M with COPD, gout, iil-dcyjjei-elydeicps diabetes, and chronic hypertension who was admitted for management of right lower lobe pneumonia that developed shortly after R rotator cuff surgery. PLAN: 1. Right lower lobe Pneumonia -supplemental O2 -Sputum gram stain with GPCs in pairs and chains as well as few GNRs, with culture showing normal manuel -f/u urine strep pneumo, legionella & blood cx -continue levaquin 09/27 (day 5 of antibiotics) -Acetaminophen PRN for fever 2. Acute COPD exacerbation 2/2 pneumonia -ABG unremarkable -supplemental O2 -aspiration precautions -Dunebs Q6H, Albuterol Q4HP -s/p Solu-Medrol 125 IV, now on Prednisone 40 + PPI tomorrow, -will need to see [employer] outpatient for repeat PFTs and Pulmonary Rehab at discharge 3. Status post right rotator cuff surgery. -Pain control: oxycontin BID, oxycodone PRN for breakthrough, meloxicam and Flexeril -PT, OT 4. NIDDM -diabetic diet -FSBG AC/HS while he is on steroids -hypoglycemia protocol -sliding scale insulin -continue holding oral anti-hyperglycemics 5 .Gout. -continue home allopurinol 6 .Chronic hypertension. -continue lisinopril and hydrochlorothiazide 7. Tobacco abuse. -nicotine patch 8. Constipation: Likely 2/2 narcotic pain meds -is on a bowel regimen, but will give fleet enema DVT prophylaxis with Lovenox. Disposition: still hypoxemic requiring 1L, so will discharge home with home O2 today. VS,Fishbone, I+O VS, Fishbone, I+O Laboratory Tests 09/29/19 05:31 Vital Signs Date Time Temp Pulse Resp B/P (MAP) Pulse Ox O2 Delivery O2 Flow Rate FiO2 09/29/19 05:35 97.2 76 18 116/71 (86) 90 Nasal Cannula 1.0 I&O- Last 24 Hours up to 6 AM 09/29/19 06:00 Intake Total 1300 ml Output Total 600 ml Balance 700 ml ARTURO FRIEDMAN MD Sep 29, 2019 07:54
[2019-09-29 09:58] VITALS: BP 123/73
[2019-09-29 14:07] LABS: BODY FLUID CULTURE Not indicated. (.); LEGIONELLA ANTIGEN URINE Negative (Negative); ORGANISM ID Not indicated. (.); SPECIMEN SOURCE Urine (.); URINE STREP PNEUMONIAE ANTIGEN Negative (Negative)
== END 2019-09-29 13:00 | disposition home or self-care (01) | DRG 194 ==
LOC: M ED 17:06 → EDBD 17:06 → M ED INP 21:07 → M MS5PR 09-25 00:41
PROVIDERS: ADMIT Internal Medicine; ATTEND Internal Medicine
DX: J18.9 Pneumonia, unspecified organism (principal); J44.1 Chronic obstructive pulmonary disease with (acute) exacerbation; M10.9 Gout, unspecified; I10 Essential (primary) hypertension; E11.9 Type 2 diabetes mellitus without complications; E78.5 Hyperlipidemia, unspecified; N20.0 Calculus of kidney; Z98.890 Other specified postprocedural states; F17.210 Nicotine dependence, cigarettes, uncomplicated; Z79.84 Long term (current) use of oral hypoglycemic drugs; Z79.899 Other long term (current) drug therapy; Z91.018 Allergy to other foods; Z88.6 Allergy status to analgesic agent

== ENCOUNTER → 2019-10-06 | Outpatient (CLI) | payer MEDICARE, OTHER ==
[~2019-10-06] MED LIST changes: +AMOX875T2 PO; +AUGM875T28 PO; +MS C15TA8 PO; +OXYC-517 PO; +PRED20TA PO
== END ==
LOC: M CLY 13:14
PROVIDERS: ATTEND Family Medicine
DX: J18.9 Pneumonia, unspecified organism (principal); Z53.8 Procedure and treatment not carried out for other reasons

== ENCOUNTER → 2019-10-06 | Outpatient (CLI) | payer MEDICARE, OTHER ==
--- NOTE | 2019-10-06 14:03 | REP ---
Clinical: Cough. Technique: PA and lateral. Comparison: 09/24/2019. Findings: Mediastinum and cardiac silhouette are normal. Lung lassiter demonstrate COPD/emphysematous changes with scattered fibrosis and interstitial changes. Previously noted right lower lobe consolidation is significantly improved and subtle residual superimposed basilar atelectasis cannot be excluded. No effusion. No pneumothorax. Skeletal structures are intact. Impression: Chronic interstitial changes. Improved with decreased right lower lobe consolidation as compared to prior. Cannot exclude subtle superimposed basilar atelectasis. Electronically Signed by Jack Young MD 10/06/2019 01:54 P
== END ==
LOC: M CLY 13:30
PROVIDERS: ATTEND Family Medicine
DX: J18.9 Pneumonia, unspecified organism (principal)
CPT/HCPCS: 71046; 99496; G0463

== ENCOUNTER → 2019-11-14 | Outpatient (REF) | payer MEDICARE, OTHER ==
[~2019-11-14] MED LIST changes: -OMEP-172 PO; +OMEP1CAP73 PO
[2019-11-14 12:31] LABS: HEMOGLOBIN A1c 7.4 %
[2019-11-14 12:35] LABS: ALBUMIN 4.5 GM/DL (3.2-5.2); ALT/SGPT 22 U/L (12-78); BILIRUBIN,TOTAL 0.6 MG/DL (0.2-1.0); BLOOD UREA NITROGEN 20 MG/DL (7-18); CALCIUM LEVEL 9.5 MG/DL (8.8-10.2); CARBON DIOXIDE LEVEL 31 MEQ/L (21-32); CHLORIDE LEVEL 96 MEQ/L (98-107); CHOLESTEROL LEVEL 103 MG/DL (<200); CHOLESTEROL RISK RATIO 3.433 (<5); CREATININE FOR GFR 0.96 MG/DL (0.70-1.30); GLOMERULAR FILTRATION RATE > 60.0 (>42); GLUCOSE, FASTING 140 MG/DL (70-100); HDL CHOLESTEROL 30 MG/DL (>40); LDL CHOLESTEROL 27 MG/DL (<100); NON-HDL-C 73 MG/DL; SODIUM LEVEL 134 MEQ/L (136-145); TOTAL PROTEIN 7.9 GM/DL (6.4-8.2); TRIGLYCERIDES LEVEL 228 MG/DL (<150)
[2019-11-14 12:44] LABS: CREATININE, URINE 15.1 MG/DL; MALB URINE SIEMENS 17.3 MG/L; MAU/CREAT RATIO 114.5 MCG/MG (0.0-30.0)
== END ==
LOC: M SFHCCLAY 07:16
PROVIDERS: ATTEND Family Medicine
DX: E11.9 Type 2 diabetes mellitus without complications (principal)

== ENCOUNTER → 2020-02-11 | Outpatient (REF) | payer MEDICARE, OTHER ==
[~2020-02-11] MED LIST changes: +CYCL-707; +CYCL-707 PO; -CYCL10TA; -CYCL10TA PO
[2020-02-11 12:46] LABS: ALBUMIN 4.2 GM/DL (3.2-5.2); ALT/SGPT 24 U/L (12-78); BILIRUBIN,TOTAL 0.5 MG/DL (0.2-1.0); BLOOD UREA NITROGEN 12 MG/DL (7-18); CALCIUM LEVEL 9.7 MG/DL (8.8-10.2); CARBON DIOXIDE LEVEL 30 MEQ/L (21-32); CHLORIDE LEVEL 100 MEQ/L (98-107); CREATININE FOR GFR 1.01 MG/DL (0.70-1.30); GLOMERULAR FILTRATION RATE > 60.0 (>42); GLUCOSE, FASTING 126 MG/DL (70-100); POTASSIUM SERUM 4.3 MEQ/L (3.5-5.1); SODIUM LEVEL 136 MEQ/L (136-145); TOTAL PROTEIN 7.5 GM/DL (6.4-8.2)
[2020-02-11 13:17] LABS: HEMOGLOBIN A1c 7.9 %
== END ==
LOC: M LABSMT 08:05
PROVIDERS: ATTEND Nurse Practitioner Women's Health
DX: N28.1 Cyst of kidney, acquired (principal); Z12.5 Encounter for screening for malignant neoplasm of prostate
CPT/HCPCS: 80053; 83036; G0103

== ENCOUNTER → 2020-05-27 | Outpatient (REF) | payer MEDICARE, OTHER ==
[2020-07-14 08:02] LABS: ALBUMIN 4.1 GM/DL (3.2-5.2); ALT/SGPT 20 U/L (12-78); BILIRUBIN,TOTAL 0.4 MG/DL (0.2-1.0); BLOOD UREA NITROGEN 20 MG/DL (7-18); CALCIUM LEVEL 9.1 MG/DL (8.8-10.2); CARBON DIOXIDE LEVEL 30 MEQ/L (21-32); CHLORIDE LEVEL 100 MEQ/L (98-107); CREATININE FOR GFR 1.24 MG/DL (0.70-1.30); GLOMERULAR FILTRATION RATE > 60.0 (>42); GLUCOSE, FASTING 148 MG/DL (70-100); POTASSIUM SERUM 4.4 MEQ/L (3.5-5.1); SODIUM LEVEL 136 MEQ/L (136-145); TOTAL PROTEIN 7.6 GM/DL (6.4-8.2); URIC ACID 5.1 MG/DL (3.5-7.2)
== END ==
LOC: M SFHCCLAY 09:44
PROVIDERS: ATTEND Family Medicine
DX: E11.9 Type 2 diabetes mellitus without complications (principal); M10.9 Gout, unspecified

== ENCOUNTER 2020-06-24 19:35 | Emergency (ER) | payer MEDICARE, OTHER ==
[~2020-06-24] VITALS: Ht 180.3 cm; Wt 86.8 kg
[2020-06-24] MEDS ORDERED: NITROGLYCERIN 0.4 MG SUBL TABLET As Ordered ONE (20:09)
[2020-06-24] MEDS ORDERED: NITROGLYCERIN 0.4 MG SUBL TABLET SL PRN (20:15)
[2020-06-24 20:21] VITALS: BP 126/60
[2020-06-24] MEDS ORDERED: fentaNYL 100 MCG/2 ML INJECTION (J3010) IV ONE (20:30)
[2020-06-24 20:35] LABS: BASO # 0.1 10^3/uL (0.0-0.2); BASO % 0.5 % (0.0-1.0); EOS # 0.1 10^3/uL (0.0-0.5); EOS % 1.4 % (0.0-3.0); HEMATOCRIT 46.7 % (42.0-52.0); HEMOGLOBIN 15.6 g/dl (13.5-17.5); LYMPH # 2.2 10^3/uL (1.5-5.0); LYMPH % 22.1 % (24.0-44.0); MEAN CORPUSCULAR HGB CONC 33.4 g/dl (32.0-36.5); MEAN CORPUSCULAR VOLUME 89.8 fl (80.0-96.0); MONO # 0.6 10^3/uL (0.0-0.8); MONO % 6.5 % (0.0-5.0); NEUTROPHILS # 6.9 10^3/uL (1.5-8.5); NEUTROPHILS % 69.1 % (36.0-66.0); PLATELET COUNT, AUTOMATED 199 10^3/uL (150-450); WHITE BLOOD COUNT 9.9 10^3/uL (4.0-10.0)
[2020-06-24] MEDS ORDERED: ISOVUE-370 76% 100ML VIAL As Ordered ONE (20:35)
--- NOTE | 2020-06-24 20:58 | REPVR ---
PROCEDURE INFORMATION: Exam: XR Chest, 1 View Exam date and time: 06/24/2020 8:27 PM Age: 74 years old Clinical indication: Chest pain TECHNIQUE: Imaging protocol: XR of the chest Views: 1 view. COMPARISON: CR CHEST 2 VIEW 10/06/2019 1:40 PM FINDINGS: Lungs: Worsening interstitial scarring in the lung bases. No masses are seen. Pleural space: Unremarkable. No pleural effusion. No pneumothorax. Heart/Mediastinum: Unremarkable. No cardiomegaly. Bones/joints: Skeletal degenerative changes are noted. IMPRESSION: Worsening basilar interstitial lung disease. Electronically signed by: Rahul Barfield On 06/24/2020 20:58:48 PM
--- NOTE | 2020-06-24 21:30 | REPVR ---
PROCEDURE INFORMATION: Exam: CT Angiography Chest With Contrast Exam date and time: 06/24/2020 9:02 PM Age: 74 years old Clinical indication: Other: R/O tad TECHNIQUE: Imaging protocol: Computed tomographic angiography of the chest with intravenous contrast. 3D rendering (Not supervised by radiologist): MIP and/or 3D reconstructed images were created by the technologist. Radiation optimization: All CT scans at this facility use at least one of these dose optimization techniques: automated exposure control; mA and/or kV adjustment per patient size (includes targeted exams where dose is matched to clinical indication); or iterative reconstruction. Contrast material: ISOVUE 370; Contrast volume: 75 ml; Contrast route: INTRAVENOUS (IV); COMPARISON: CT ANGIO CHEST 05/23/2018 8:10 PM FINDINGS: Pulmonary arteries: Normal. No pulmonary emboli. Aorta: Unremarkable. No aortic aneurysm. No aortic dissection. Lungs: Advanced emphysematous changes. Subpleural predominant interstitial fibrosis with honeycombing and bronchiectasis in both lungs. Worsening interstitial thickening in the lung bases. Lung disease has worsened since the prior exam. No airspace consolidation. 7 mm noncalcified mass in the left lower lobe is unchanged. Pleural space: Unremarkable. No pneumothorax. No pleural effusion. Heart: Unremarkable. No cardiomegaly. No pericardial effusion. Lymph nodes: Mildly enlarged mediastinal and hilar lymph nodes are unchanged. Bones/joints: Advanced degenerative changes in the thoracic spine. Soft tissues: Unremarkable. IMPRESSION: 1. Advanced emphysema and worsened chronic interstitial lung disease. 2. Interstitial thickening in the lung bases may be due to worsening interstitial lung disease or COPD exacerbation. 3. No pulmonary embolism. 4. Stable left lower lobe pulmonary nodule. Electronically signed by: Rahul Barfield On 06/24/2020 21:29:53 PM
[2020-06-24 21:37] LABS: ALBUMIN 3.8 GM/DL (3.2-5.2); ALT/SGPT 22 U/L (12-78); BILIRUBIN,DIRECT 0.1 MG/DL (0.0-0.2); BILIRUBIN,TOTAL 0.3 MG/DL (0.2-1.0); BLOOD UREA NITROGEN 20 MG/DL (7-18); CALCIUM LEVEL 9.1 MG/DL (8.8-10.2); CARBON DIOXIDE LEVEL 26 MEQ/L (21-32); CHLORIDE LEVEL 102 MEQ/L (98-107); CK-MB VALUE MASS 4.2 NG/ML (<3.6); CPK CREATINE PHOSPHOKINASE 187 U/L (39-308); CREATININE FOR GFR 1.27 MG/DL (0.70-1.30); GLOMERULAR FILTRATION RATE 59.3 (>42); GLUCOSE, FASTING 155 MG/DL (70-100); LIPASE 104 U/L (73-393); MB/CK RELATIVE INDEX 2.25 (< OR =4); NT-PRO BNP 113 PG/ML (<125); POTASSIUM SERUM 4.1 MEQ/L (3.5-5.1); SODIUM LEVEL 138 MEQ/L (136-145); TOTAL PROTEIN 7.2 GM/DL (6.4-8.2); TROPONIN I < 0.02 NG/ML (< 0.10)
[2020-06-24] MEDS ORDERED: GI COCKTAIL 50ML BTL(HYOSCYAMINE/MAALOX/LIDOCAINE VISCOUS)(1:3:1) PO ONE (22:15)
[2020-06-25 02:49] LABS: CK-MB VALUE MASS 3.3 NG/ML (<3.6); CPK CREATINE PHOSPHOKINASE 149 U/L (39-308); MB/CK RELATIVE INDEX 2.21 (< OR =4); TROPONIN I < 0.02 NG/ML (< 0.10)
[2020-06-25] MEDS ORDERED: OMEP40CA97 PO (03:03)
[2020-06-25 03:15] VITALS: BP 124/65
[2020-06-25] MEDS ORDERED: OMEPRAZOLE 20 MG CAP PO ONE (03:15)
--- NOTE | 2020-06-29 19:12 | ECGEPIP ---
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
--- NOTE | 2020-06-29 19:21 | ECGEPIP ---
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
== END 2020-06-25 03:20 | disposition home or self-care (01) ==
LOC: M ED 19:35
DX: K21.9 Gastro-esophageal reflux disease without esophagitis (principal); J84.9 Interstitial pulmonary disease, unspecified; J43.9 Emphysema, unspecified; R91.1 Solitary pulmonary nodule; E11.9 Type 2 diabetes mellitus without complications; I10 Essential (primary) hypertension; J44.9 Chronic obstructive pulmonary disease, unspecified; E78.5 Hyperlipidemia, unspecified; F17.210 Nicotine dependence, cigarettes, uncomplicated; Z88.6 Allergy status to analgesic agent; Z91.018 Allergy to other foods; Z79.51 Long term (current) use of inhaled steroids; Z79.84 Long term (current) use of oral hypoglycemic drugs; Z79.899 Other long term (current) drug therapy
CPT/HCPCS: 71045; 71275; 80047; 80048; 80076; 82550; 82553; 83690; 83880; 84484; 85025; 93005; 93041; 94760; 99285; J3010; Q9967

== ENCOUNTER → 2020-08-13 | Outpatient (REF) | payer MEDICARE, OTHER | LOC: M LAB REF 19:02 | PROVIDERS: ATTEND Dermatology | DX: L90.5 Scar conditions and fibrosis of skin (principal) ==

== ENCOUNTER → 2020-09-16 | Outpatient (REF) | payer MEDICARE, OTHER ==
[2020-09-16 12:48] LABS: ALBUMIN 4.4 GM/DL (3.2-5.2); ALT/SGPT 21 U/L (12-78); BILIRUBIN,TOTAL 0.4 MG/DL (0.2-1.0); BLOOD UREA NITROGEN 15 MG/DL (7-18); CALCIUM LEVEL 9.6 MG/DL (8.8-10.2); CARBON DIOXIDE LEVEL 27 MEQ/L (21-32); CHLORIDE LEVEL 100 MEQ/L (98-107); CHOLESTEROL LEVEL 110 MG/DL (<200); CHOLESTEROL RISK RATIO 3.142 (<5); CREATININE FOR GFR 0.95 MG/DL (0.70-1.30); GLOMERULAR FILTRATION RATE > 60.0 (>42); GLUCOSE, FASTING 129 MG/DL (70-100); HDL CHOLESTEROL 35 MG/DL (>40); LDL CHOLESTEROL 38 MG/DL (<100); NON-HDL-C 75 MG/DL; POTASSIUM SERUM 4.3 MEQ/L (3.5-5.1); SODIUM LEVEL 136 MEQ/L (136-145); TOTAL PROTEIN 7.9 GM/DL (6.4-8.2); TRIGLYCERIDES LEVEL 187 MG/DL (<150)
== END ==
LOC: M SFHCCLAY 08:54
PROVIDERS: ATTEND Family Medicine
DX: E11.9 Type 2 diabetes mellitus without complications (principal); E78.5 Hyperlipidemia, unspecified

== ENCOUNTER → 2020-12-29 | Outpatient (REF) | payer MEDICARE, OTHER ==
[~2020-12-29] MED LIST changes: +GABA-282 PO; -GABA-843 PO; +HYDR-3490 PO; -HYDR25TAB PO; -LISI-542 PO; +LISI-898 PO
== END ==
LOC: M LABSMT 07:55
PROVIDERS: ATTEND Nurse Practitioner Women's Health
DX: Z12.5 Encounter for screening for malignant neoplasm of prostate (principal)

== ENCOUNTER → 2021-01-03 | Outpatient (REF) | payer MEDICARE, OTHER ==
[2021-01-03 12:36] LABS: BLOOD UREA NITROGEN 21 MG/DL (7-18); CALCIUM LEVEL 9.6 MG/DL (8.8-10.2); CARBON DIOXIDE LEVEL 26 MEQ/L (21-32); CHLORIDE LEVEL 98 MEQ/L (98-107); GLOMERULAR FILTRATION RATE > 60.0 (>42); GLUCOSE, FASTING 130 MG/DL (70-100); POTASSIUM SERUM 4.4 MEQ/L (3.5-5.1); SODIUM LEVEL 133 MEQ/L (136-145)
[2021-01-03 15:37] LABS: HEMOGLOBIN A1c 7.2 %
== END ==
LOC: M SFHCCLAY 07:32
PROVIDERS: ATTEND Family Medicine
DX: K21.9 Gastro-esophageal reflux disease without esophagitis (principal); E11.9 Type 2 diabetes mellitus without complications
CPT/HCPCS: 80048; 83036; 83735; G0463

== ENCOUNTER 2021-03-16 17:22 | Inpatient (IN) | payer MEDICARE, OTHER ==
[~2021-03-16] VITALS: Ht 180.3 cm; Wt 84.0 kg
[2021-03-16 17:47] VITALS: BP 131/76
[2021-03-16] MEDS ORDERED: ISOVUE-370 76% 100ML VIAL As Ordered ONE (18:07)
[2021-03-16 18:08] LABS: BASO # 0.1 10^3/uL (0.0-0.2); BASO % 0.8 % (0.0-1.0); EOS # 0.1 10^3/uL (0.0-0.5); EOS % 1.1 % (0.0-3.0); HEMATOCRIT 48.4 % (42.0-52.0); HEMOGLOBIN 16.1 g/dl (13.5-17.5); LYMPH % 22.2 % (24.0-44.0); MEAN CORPUSCULAR HEMOGLOBIN 31.5 pg (27.0-33.0); MEAN CORPUSCULAR HGB CONC 33.3 g/dl (32.0-36.5); MEAN CORPUSCULAR VOLUME 94.7 fl (80.0-96.0); MONO # 0.6 10^3/uL (0.0-0.8); MONO % 6.1 % (2.0-8.0); NEUTROPHILS # 6.3 10^3/uL (1.5-8.5); NEUTROPHILS % 69.6 % (36.0-66.0); PLATELET COUNT, AUTOMATED 171 10^3/uL (150-450); RED BLOOD COUNT 5.11 10^6/uL (4.30-6.10); WHITE BLOOD COUNT 9.1 10^3/uL (4.0-10.0)
--- NOTE | 2021-03-16 18:16 | REPVR ---
PROCEDURE INFORMATION: Exam: CT Head Without Contrast Exam date and time: 03/16/2021 5:52 PM Age: 75 years old Clinical indication: Pain; Headache; Additional info: CVA - nursing interventions must not delay CT TECHNIQUE: Imaging protocol: Computed tomography of the head without contrast. Radiation optimization: All CT scans at this facility use at least one of these dose optimization techniques: automated exposure control; mA and/or kV adjustment per patient size (includes targeted exams where dose is matched to clinical indication); or iterative reconstruction. Other technique: STROKE PROTOCOL was implemented. COMPARISON: CT Head without contrast 01/03/2017 9:00 PM FINDINGS: Brain: There is age-related volume loss. There is white matter lucency consistent with chronic microvascular disease. Microvascular disease has progressed compared with prior scan. No acute infarct is identified. No hemorrhage or extra-axial collection. There is no mass. Cerebral ventricles: Ventricular prominence secondary to volume loss Paranasal sinuses: Visualized sinuses are unremarkable. No fluid levels. Mastoid air cells: Visualized mastoid air cells are well aerated. Bones/joints: Unremarkable. No acute fracture. Soft tissues: Unremarkable. IMPRESSION: 1. Moderate chronic microvascular disease. 2. No acute intracranial lesion or injury. ASSESSMENT: ASPECTS ([facility] Stroke Program Early CT Score) is 10. Electronically signed by: Walker Johnson On 03/16/2021 18:16:10 PM
[2021-03-16] MEDS ORDERED: TENECTEPLASE 50 MG KIT (TNKase) (J3101 PER 1MG) IVP ONE (18:35)
[2021-03-16 18:38] LABS: CK-MB VALUE MASS 5.8 NG/ML (<3.6); MB/CK RELATIVE INDEX 2.72 (< OR =4); TROPONIN I 0.02 NG/ML (< 0.10)
[2021-03-16] MEDS ORDERED: ALTEPLASE 100MG VIAL IV ONE (18:40)
[2021-03-16] MEDS ORDERED: ALTEPLASE RECOMBINANT IV ONE (18:40)
--- NOTE | 2021-03-16 18:48 | REPVR ---
PROCEDURE INFORMATION: Exam: CT Angiography Neck With Contrast Exam date and time: 03/16/2021 6:16 PM Age: 75 years old Clinical indication: Pain; Headache; Additional info: Left sided weakness TECHNIQUE: Imaging protocol: Computed tomography angiography of the neck with contrast. 3D rendering (Not supervised by radiologist): MIP and/or 3D reconstructed images were created by the technologist. Radiation optimization: All CT scans at this facility use at least one of these dose optimization techniques: automated exposure control; mA and/or kV adjustment per patient size (includes targeted exams where dose is matched to clinical indication); or iterative reconstruction. Contrast material: ISO 370; Contrast volume: 100 ml; Contrast route: INTRAVENOUS (IV); COMPARISON: No relevant prior studies available. FINDINGS: Right common carotid artery: No stenosis. No dissection or occlusion. Right internal carotid artery: There is calcified plaque in the proximal right internal carotid artery without stenosis. Right external carotid artery: No occlusion or stenosis of the origin. Left common carotid artery: No stenosis. No dissection or occlusion. Left internal carotid artery: There is calcified plaque in the proximal left internal carotid artery without stenosis. Left external carotid artery: No occlusion or stenosis of the origin. Right vertebral artery: No stenosis. No dissection or occlusion. Left vertebral artery: No stenosis. No dissection or occlusion. Soft tissues: Normal. No significant soft tissue swelling. Bones/joints: No acute fracture. Multilevel disc findings: There is multilevel cervical spondylosis and disc space narrowing. Lungs: There is centrilobular emphysema in the upper lobes. IMPRESSION: No carotid or vertebral artery stenosis REFERENCES: NASCET CRITERIA. The degree of internal carotid artery stenosis is based on NASCET criteria. Normal is no stenosis. Mild is less than 50% stenosis. Moderate is 50-69% stenosis. Severe is 70% to 99% stenosis. Total occlusion is no detectable patent lumen. Electronically signed by: Walker Johnson On 03/16/2021 18:47:43 PM
--- NOTE | 2021-03-16 18:49 | REPVR ---
PROCEDURE INFORMATION: Exam: CT Angiography Head With Contrast, Arteriography Exam date and time: 03/16/2021 6:16 PM Age: 75 years old Clinical indication: Pain; Headache; Additional info: Left sided weakness TECHNIQUE: Imaging protocol: Computed tomography angiography of the head with contrast. Exam focused on the arteries. 3D rendering (Not supervised by radiologist): MIP and/or 3D reconstructed images were created by the technologist. Radiation optimization: All CT scans at this facility use at least one of these dose optimization techniques: automated exposure control; mA and/or kV adjustment per patient size (includes targeted exams where dose is matched to clinical indication); or iterative reconstruction. Contrast material: ISO 370; Contrast volume: 100 ml; Contrast route: INTRAVENOUS (IV); COMPARISON: CT Head without contrast 03/16/2021 5:48 PM FINDINGS: Limitations: Axial images are 2 mm. ANTERIOR CIRCULATION: Right internal carotid artery: There is calcified plaque in the right carotid siphon with moderate stenosis. No aneurysm. Right middle cerebral artery: Unremarkable. No occlusion or significant stenosis. No aneurysm. Right anterior cerebral artery: Unremarkable. No occlusion or significant stenosis. No aneurysm. Left internal carotid artery: There is calcified plaque in the left carotid siphon with moderate stenosis.. Left middle cerebral artery: Unremarkable. No occlusion or significant stenosis. No aneurysm. Left anterior cerebral artery: Unremarkable. No occlusion or significant stenosis. No aneurysm. POSTERIOR CIRCULATION: Right vertebral artery: Unremarkable. No occlusion or significant stenosis. No aneurysm. Left vertebral artery: Unremarkable. No occlusion or significant stenosis. No aneurysm. Basilar artery: Unremarkable. No occlusion or significant stenosis. No aneurysm. Right posterior cerebral artery: Unremarkable. No occlusion or significant stenosis. No aneurysm. Left posterior cerebral artery: Unremarkable. No occlusion or significant stenosis. No aneurysm. IMPRESSION: 1. Atherosclerotic plaque in the carotid siphons. Moderate stenosis. 2. No intracranial large vessel critical stenosis or occlusion Electronically signed by: Walker Johnson On 03/16/2021 18:48:58 PM
--- NOTE | 2021-03-16 18:52 | REP ---
INDICATION: CVA. COMPARISON: 06/24/2020 TECHNIQUE: Portable FINDINGS: The technique utilized in obtaining the radiograph has magnified the cardiac silhouette and accentuated the interstitial markings. The cardiomediastinal silhouette is unchanged. The heart is not enlarged. There is basilar fibrotic change status quo. No acute patchy parenchymal opacities or pleural effusions have developed. There is bilateral pulmonary arterial enlargement which is stable. Underlying hilar adenopathy cannot be ruled out this portable exam. IMPRESSION: Stable appearing chronic changes <Electronically signed by Gunnar Wall > 03/16/21 [id number]
[2021-03-16 19:00] LABS: INR 1.08; PROTHROMBIN TIME 14.2 SECONDS (12.5-14.3)
[2021-03-16 19:01] LABS: PARTIAL THROMBOPLASTIN TIME 29.2 SECONDS (24.2-38.5)
[2021-03-16 19:02] LABS: BLOOD UREA NITROGEN 18 MG/DL (7-18); CALCIUM LEVEL 9.1 MG/DL (8.8-10.2); CARBON DIOXIDE LEVEL 23 MEQ/L (21-32); CHLORIDE LEVEL 105 MEQ/L (98-107); CREATININE FOR GFR 1.12 MG/DL (0.70-1.30); GLOMERULAR FILTRATION RATE > 60.0 (>42); GLUCOSE, FASTING 98 MG/DL (70-100); POTASSIUM SERUM 4.3 MEQ/L (3.5-5.1); SODIUM LEVEL 138 MEQ/L (136-145)
[2021-03-16] MEDS ORDERED: SODIUM CHLORIDE 0.9% 50 ML IV ONE (19:35)
[2021-03-16] MEDS ORDERED: ASPIRIN 81 MG CHEW TABLET PO SCH (21:00)
--- NOTE | 2021-03-16 21:02 | ECGEPIP ---
[facility] - ED Test Date: 2021-03-16 Pat Name: RAUL FRAGOSO Department: Room: - Gender: Male Mental Health Clinician: VC : 1945 Requested By: GENIE ESTRADA Order Number: [id number] Reading MD: Lauren Mir Measurements Intervals [place] Rate: 86 P: 62 OH: 226 QRS: 68 QRSD: 98 T: 40 QT: 384 QTc: 459 Interpretive Statements Sinus rhythm with 1st degree AV block NSTTW abnormalities similar 06/25/20 Electronically Signed on 03-16-2021 21:02:32 EDT by Lauren Mir
--- NOTE | 2021-03-16 22:36 | HPEPDOC ---
[facility] Medical History & Physical Date of Admission Mar 16, 2021 Date of Service: Mar 16, 2021 History and Physical CHIEF COMPLAINT: Left leg weakness HISTORY OF PRESENT ILLNESS: 75-year-old male history of COPD, hypertension, bty-wlmfqyi-bytjvnhpo diabetes, who is an active smoker presented with left lower leg weakness at 4:30 PM on 03-16-21 shortly after arriving 45 minutes after onset of symptoms to the ED he started having left upper extremity heaviness. At no point did he have any speech difficulty or weakness on the right side. [facility] telemetry stroke service was contacted Dr. Martin provided a urgent neurological consultation and consented the patient for tPA which was administered. I saw the patient in the ED after tPA was completed at that time patient tells me he no longer has heaviness in his left upper extremity and he is able now to wiggle the toes and move his left lower extremity a little which was unable to do previously. He hasn't noticed any symptoms he denies any shortness of breath or chest pain denies any trouble with speech. Patient will be admitted for stroke workup PAST MEDICAL/SURGICAL HISTORY: COPD Gout Hypertension Jnc-esvyqmt-csvbkolyb diabetes Hyperlipidemia History of nephrolithiasis rotator cuff surgery bilaterally Carpal tunnel release left hip replacement Multiple back surgeries SOCIAL HISTORY: Denies alcohol use Denies tobacco use Denies illicit drug use FAMILY HISTORY: Reviewed and none contributory to this admission ALLERGIES: Please see below. REVIEW OF SYSTEMS: 10 point review of systems complete all negative otherwise stated in HPI HOME MEDICATIONS: Please see below. PHYSICAL EXAMINATION: Constitutional: Awake and alert, in no apparent distress ENT: Sclera are clear. Mucosa is moist. Respiratory: Lungs diminished breath sounds bilaterally. No respiratory distress. on 2L oxygen Cardiovascular: RRR S1 and S2 are normal, no murmur Gastrointestinal: Abdomen is soft, non distended, non tender, BS present. Musculoskeletal: No lower extremity edema. mental status: The patient is awake, alert, oriented to name, location, and date. Cranial nerves: Pupils are equal, round, and reactive to light. Extraocular muscles intact. Visual lassiter full bilaterally. Smile is symmetrical. Tongue is midline. Intact sensation on both sides of face. Motor: At least 4+/5 in both upper and lower right extremities as well as the left upper extremity. Significant weakness in the left lower extremity 2/5. Sensory: Intact to sensation bilaterally. Reflexes: Symmetrical, non-hyperreflexic. Not pathological. Coordination: Afvbbm-np-zwhw grossly intact. LABORATORY DATA: See below. IMAGING: See chart MICROBIOLOGY: Please see below. ASSESSMENT/PLAN 75M history of COPD, hypertension, ihv-oetrjnz-aihqkdair diabetes, who is an active smoker presented with left lower leg weakness found to have a stroke and given tPA per [facility] stroke telehealth consultation. Admitted for stroke workup. # Stroke: s/p tPA in the ED. Admit to ICU. Post tPA protocol per recommendations from [facility] martin. Fu MRI ordered. Fu echo, duplex LE. Start ASA 24hrs after tPA tomorrow night. Start statin. Swallow eval, NPO for now. IVFs NS. BP/neurochecks q15m for 2 hrs then q30min for 6 hrs then q1h for 24hrs. Maintain SBP 100-185. PT/OT. # Smoker: This is a significant risk factor for stroke. I counseled him to quit. Nicotine patch. # Hypertension: Continue home meds. Monitor and titrate # DM: ISS. Frequent Accu-Cheks. Hypoglycemic precautions. # COPD : Not in exacerbation continue home inhalers. On home oxygen 2L. # Gout: Continue allopurinol # Hyperlipidemia: statin, lipid panel # DVT prophylaxis: SCDs/TEDs only for now given tPA was just administered. A [facility] Hospitalist Vital Signs Vital Signs Date Time Temp Pulse Resp B/P (MAP) Pulse Ox O2 Delivery O2 Flow Rate FiO2 03/16/21 22:00 80 143/75 (97) 89 03/16/21 21:45 20 03/16/21 19:15 Room Air 03/16/21 17:47 98.0 2.0 Laboratory Data Labs 24H Laboratory Tests 2 03/16/21 17:48: Immature Granulocyte % (Auto) 0.2, Neutrophils (%) (Auto) 69.6H, Lymphocytes (%) (Auto) 22.2L, Monocytes (%) (Auto) 6.1, Eosinophils (%) (Auto) 1.1, Basophils (%) (Auto) 0.8, Neutrophils # (Auto) 6.3, Lymphocytes # (Auto) 2.0, Monocytes # (Auto) 0.6, Eosinophils # (Auto) 0.1, Basophils # (Auto) 0.1, Nucleated Red Blood Cells % (auto) 0.0, POC Glucose (Misc Panel) 99, POC Sodium (Misc Panel) 133L, POC Potassium (Misc Panel) 7.3*H, POC Chloride (Misc Panel) 102, POC Total CO2 (Misc Panel) 27.0, POC Blood Urea Nitrogen (Misc Panel 27H, POC Ionized Calcium (Misc Panel) 4.0L, POC Creatinine (Misc Panel) 1.2, POC Hematocrit (Misc Panel) 46.0, Anion Gap 10, Glomerular Filtration Rate > 60.0, Calcium Level 9.1, Total Creatine Kinase 213, Creatine Kinase MB 5.8H, Creatine Kinase MB Relative Index 2.72, Troponin I 0.02 03/16/21 18:35: Prothrombin Time 14.2H, Prothromb Time International Ratio 1.08, Activated Partial Thromboplast Time 29.2 CBC/BMP Laboratory Tests 03/16/21 17:48 Home Medications Scheduled Allopurinol (Zyloprim) 300 Mg Tab, 300 MG PO DAILY Aspirin (Aspirin EC) 81 Mg Tablet.dr, 81 MG PO DAILY Dapagliflozin Propanediol (Farxiga) 10 Mg Tab, 10 MG PO DAILY Dulaglutide (Trulicity) 1.5 Mg/0.5 Ml Inj, 1.5 MG SC 1XWK SUNDAY MORNING Hydrochlorothiazide (Hydrochlorothiazide) 25 Mg Tablet, 25 MG PO DAILY Lisinopril (Lisinopril) 5 Mg Tab, 5 MG PO DAILY Magnesium Oxide (Magnesium Oxide) 400 Mg Tablet, 400 MG PO DAILY Meloxicam (Meloxicam) 15 Mg Tablet, 15 MG PO DAILY Metformin HCl (Metformin HCl) 500 Mg Tab, 1,000 MG PO BIDWM Omeprazole (Omeprazole) 20 Mg Capsule.dr, 20 MG PO DAILY Potassium Chloride (Potassium Chloride) 10 Meq Cap, 10 MEQ PO DAILY Rosuvastatin Calcium (Crestor) 20 Mg Tab, 20 MG PO DAILY Sitagliptin Phosphate (Januvia) 100 Mg Tab, 100 MG PO DAILY Umeclidinium Brm/Vilanterol Tr (Anoro Ellipta 62.5-25 Mcg INH) 1 Aer Aer, 1 PUFF INH DAILY Scheduled PRN Albuterol Sulfate (Ventolin Hfa) 108 Mcg/Act Aer, 2 PUFFS INH Q4H PRN for SHORTNESS OF BREATH Cyclobenzaprine HCl (Cyclobenzaprine HCl) 10 Mg Tab, 10 MG PO BID PRN for MUSCLE SPASMS Allergies Coded Allergies: Meat (Verified Allergy, Severe, [place] MEAT, anaphlyaxis, 07/31/19) anaphlyaxis morphine (Verified Adverse Reaction, Intermediate, "BETANCOURT MY THROAT", 09/25/19) A-FIB/CHADSVASC A-FIB History Current/History of A-Fib/PAF?: No YOUSEF,FELIX Ledesma MD Mar 16, 2021 22:36
[2021-03-16] MEDS ORDERED: OMEP1CAP73 PO (22:40)
[2021-03-16] MEDS ORDERED: MAGN400T2 PO (22:40)
[2021-03-16 23:19] LABS: RSV AMPLIFICATION NEGATIVE (NEGATIVE)
[2021-03-17] VITALS (19 sets, daily range): BP systolic 100–124; BP diastolic 56–76
--- NOTE | 2021-03-17 00:03 | REPVR ---
PROCEDURE INFORMATION: Exam: MR Head Without Contrast Exam date and time: 03/16/2021 11:33 PM Age: 75 years old Clinical indication: Other: Left leg weakness and heaviness; Additional info: Stroke TECHNIQUE: Imaging protocol: MR of the head without contrast. COMPARISON: CT Head without contrast 03/16/2021 5:48 PM FINDINGS: Brain: There is hyperintense signal in the periventricular white matter with additional hyperintense foci scattered throughout the white matter. DWI demonstrates no evidence of acute infarct. DWI demonstrates no evidence of acute infarct. Gradient echo images demonstrate no evidence of hemorrhage. There is no extra-axial collection. There is no mass. There are no abnormal flow voids. Cerebral ventricles: Ventricular prominence secondary to volume loss Bones/joints: Unremarkable. Paranasal sinuses: Normal as visualized. No acute sinusitis. Mastoid air cells: Normal as visualized. No mastoid effusion. Orbital cavity: Unremarkable. Soft tissues: Unremarkable. IMPRESSION: 1. Moderate chronic microvascular disease. 2. No acute intracranial lesion or injury Electronically signed by: Walker Johnson On 03/17/2021 00:02:21 AM
[2021-03-17 00:54] LABS: CK-MB VALUE MASS 4.8 NG/ML (<3.6); MB/CK RELATIVE INDEX 2.64 (< OR =4); TROPONIN I 0.03 NG/ML (< 0.10)
[2021-03-17] MEDS ORDERED: GLUCAGON INJ 1MG VIAL SC PRN (02:10)
[2021-03-17] MEDS ORDERED: DEXTROSE 50% 50 ML SYRINGE IV PRN (02:10)
[2021-03-17] MEDS ORDERED: ALBUTEROL 90 MCG/ACT 8GM HFA INHALER INH PRN (02:10)
[2021-03-17] MEDS ORDERED: GLUCOSE 4GM CHEW TABLET PO PRN (02:10)
[2021-03-17] MEDS: NS 1,000 ML IV SCH ×2 (02:34→07:55)
[2021-03-17 02:35] LABS: HEMOGLOBIN A1c 6.3 %
[2021-03-17] MEDS: ATORVASTATIN 20 MG TAB PO SCH ×2 (02:35→20:25)
[2021-03-17] MEDS: HumaLOG INSULIN (NovoLOG) PER UNIT SC SCH ×4 (05:43→17:39)
--- NOTE | 2021-03-17 06:33 | REPVR ---
PROCEDURE INFORMATION: Exam: US Duplex Bilateral Extracranial Arteries Exam date and time: 03/17/2021 5:17 AM Age: 75 years old Clinical indication: Other: Stroke TECHNIQUE: Imaging protocol: Real-time Duplex ultrasound scan of the bilateral carotid and vertebral arteries combining dey scale, color Doppler and spectral waveform analysis. Bilateral exam. COMPARISON: CT ANGIO NECK 03/16/2021 6:15 PM FINDINGS: Right common carotid artery: The right CCA is patent with normal waveforms and peak systolic velocities of 76.6 cm/s, 57.6 cm/s and 50.9 cm/s in the proximal, mid and distal CCA respectively. Right internal carotid artery: Minimal calcified plaque seen in the right carotid bulb. Calcified plaque seen in the proximal right ICA with normal waveform and peak systolic velocity of 36 cm/s. The mid and distal right ICA are patent with peak systolic velocities of 73 cm/s and 63.8 cm/s respectively. Right ICA/CCA ratio: The right mid ICA to CCA ratio is 0.95. Right external carotid artery: The right ECA is patent with peak systolic velocity of 96.7 cm/s. Right vertebral artery: Antegrade flow seen in the right vertebral artery with peak systolic velocity of 54 cm/s. Antegrade flow seen in the right vertebral artery with peak systolic velocity of 67.1 cm/s. Left common carotid artery: The left CCA is patent with normal waveforms and peak systolic velocities of 75.6 cm/s, 75.1 cm/s and 57.6 cm/s in the proximal, mid and distal CCA respectively. Left internal carotid artery: Calcified plaque seen in the proximal left ICA with normal waveform and peak systolic velocity of 37 cm/s. The mid and distal left ICA are patent with peak systolic velocities of 65.9 and 63.6 cm/s respectively. Left ICA/CCA ratio: The left mid ICA to CCA ratio is 0.87. Left external carotid artery: The left ECA is patent with peak systolic velocity of 107.6 cm/s. Left vertebral artery: Unremarkable. Antegrade flow. IMPRESSION: 1. No hemodynamically significant stenosis in the right or left carotid arteries. Calcified plaques seen in the proximal right and left ICAs resulting in less than 50% stenosis. 2. No hemodynamically significant stenosis in the proximal ECA's. 3. Antegrade flow seen in the right and left vertebral arteries. REFERENCES: SRU CRITERIA. The degree of internal carotid artery stenosis is based on criteria defined by the Society of Radiologists in Ultrasound (SRU). Normal is no stenosis. Mild is less than 50% stenosis. Moderate is 50-69% stenosis. Severe is greater than 69% stenosis to near occlusion. Near occlusion is a markedly narrowed lumen. Total occlusion is no detectable patent lumen. Electronically signed by: Abel Li On 03/17/2021 06:33:14 AM
[2021-03-17] MEDS: NICOTINE 21MG/24HR 1 EA TRANSDERMAL TD SCH (09:00)
[2021-03-17] MEDS ORDERED: PNEUMOCOCCAL VACCINE 0.5ML SYRINGE (PNEUMOVAX 23) IM SCH (09:00)
[2021-03-17] MEDS ORDERED: ASPIRIN 81MG ENTERIC TABLET PO SCH (09:00)
[2021-03-17] MEDS: MAGNESIUM OXIDE 400MG TAB (MAG-OX) PO SCH (10:03)
[2021-03-17] MEDS: OMEPRAZOLE 20 MG CAP PO SCH (10:03)
[2021-03-17] MEDS: POTASSIUM CHLORIDE 10 MEQ SR TABLET PO SCH (10:03)
[2021-03-17] MEDS: allopurinoL 300 MG TAB PO SCH (10:03)
[2021-03-17] MEDS: lisinopriL 5 MG TAB PO SCH (10:04)
--- NOTE | 2021-03-17 16:18 | IPNPDOC ---
Date Seen The patient was seen on 03/17/21. Progress Note SUBJECTIVE: Patient is a 85-year-old male with history of COPD, hypertension, lmo-nwywygv-ygboyfgnb diabetes, who presented yesterday with left lower leg weakness and was treated with alteplase. Today, the patient denies any bleeding or bruising. Patient denies epistaxis, coughing up blood, pain in abdomen, changes in vision, ringing in the ears, and any headaches. Patient reports that it is still difficult for him to let lift his left leg. He also states that he has a sharp pain in the lateral left lower leg. The patient reports that he feels that some motor, sensation has returned in the left upper extremity since administration of the medication. He also reports that the onset of the left upper extremity weakness yesterday was after alteplase was administered. Patient reports that he is scared and anxious and has decided to stop smoking. Patient and nursing staff denies any urinary or bowel incontinence. Patient reports a history of back surgery and also reports that he has had sciatica in the left lower extremity. Patient states that he has not had sharp pain in the left lateral lower extremity like this before. He also reports that this pain is exacerbated by sitting more upright or he flexing forward at the hip. OBJECTIVE PHYSICAL EXAMINATION: VITAL SIGNS: Please see below. GENERAL: Pleasant male sitting upright in the rney in no acute physical distress, appears anxious HEENT: Non-icteric sclera, nares patent, oral mucosa and moist, no pharyngeal edema, Mallampati score for CARDIOVASCULAR: Systolic ejection murmur 2 out of 6 appreciated in pulmonary area. RESPIRATORY:. Clear to auscultation bilaterally. No adventitious breath sounds. ABDOMINAL: Bowel sounds present, no pain to palpation EXTREMITIES:. No edema appreciated, bilateral pedal pulses +2 out of 2 NEUROLOGICAL: Cranial nerves III-12 intact, left upper extremity muscle strength +4 out of 5, right upper extremity muscle strength 5 out of 5, right lower extremity muscle strength 5 out of 5, left lower extremity muscle strength 3 out of 5, no saddle anesthesia appreciated, blunted sensation in S1 distribution of left leg. Left patellar deep tendon reflex 0, right patellar deep tendon reflex, +2, no blunting sensation in upper extremity dermatomes. PSYCHOLOGICAL: She is pleasant and cooperative, oriented to self, place, time and situation. LABORATORY DATA, IMAGING STUDIES, MICROBIOLOGY: Please see below. DVT prophylaxis ordered: Teds and sequentials ASSESSMENT AND PLAN: This is a 75-year-old male with past medical history of COPD, hypertension, eho-irvrkoz-pfxwbgdkz diabetes, presenting with left-sided neurological deficits. PROBLEMS: #Decreased motor strength and sensation in left lower extremity. Patient's brain MRI, CT head without contrast, CTA neck were all negative from yesterday, 03/16/2021, and with patient's past medical history of back surgery. This is likely due to a spinal etiology. Dr. Menendez was consulted. MRI of the cervical spine and lumbar spine were ordered. Neurological exam today. Points to an etiology causing some kind of lumbar/sacral spinal etiology leading to paresthesias and motor deficit. #TPA administration Neurochecks have been changed to every 4 hours. Systolic blood pressures are to be maintained between 120 and 185. Holding parameters have been placed on hydrochlorothiazide and lisinopril to maintain systolic blood pressures above 120. Echocardiogram was done today, results are pending. PT/OT has been consultative. Post-TPA CT scan has been ordered for this evening. #Hypertension Continue home medications. However, willing parameters have been placed as stated above. #Diabetes mellitus. She has been placed on sliding scale insulin. Continue hypoglycemic precautions. #COPD Patient is currently not in COPD exacerbation and does not require home oxygen Oxygen titration to be held between 88 and 92%. #Gout. Continue allopurinol. #Hyperlipidemia -Continue atorvastatin. DISPOSITION: We are not anticipating a discharge soon, due to ongoing neurological deficit. VS, I&O, 24H, Fishbone Vital Signs/I&O Vital Signs Date Time Temp Pulse Resp B/P (MAP) Pulse Ox O2 Delivery O2 Flow Rate FiO2 03/17/21 15:00 80 102/65 91 Nasal Cannula 2.0 03/17/21 12:00 98.8 16 I&O- Last 24 Hours up to 6 AM 03/17/21 06:00 Intake Total 423 ml Output Total 625 ml Balance -202 ml Laboratory Data 24H LABS Laboratory Tests 2 03/16/21 17:48: Immature Granulocyte % (Auto) 0.2, Neutrophils (%) (Auto) 69.6H, Lymphocytes (%) (Auto) 22.2L, Monocytes (%) (Auto) 6.1, Eosinophils (%) (Auto) 1.1, Basophils (%) (Auto) 0.8, Neutrophils # (Auto) 6.3, Lymphocytes # (Auto) 2.0, Monocytes # (Auto) 0.6, Eosinophils # (Auto) 0.1, Basophils # (Auto) 0.1, Nucleated Red Blood Cells % (auto) 0.0, POC Glucose (Misc Panel) 99, POC Sodium (Misc Panel) 133L, POC Potassium (Misc Panel) 7.3*H, POC Chloride (Misc Panel) 102, POC Total CO2 (Misc Panel) 27.0, POC Blood Urea Nitrogen (Misc Panel 27H, POC Ionized Calcium (Misc Panel) 4.0L, POC Creatinine (Misc Panel) 1.2, POC Hematocrit (Misc Panel) 46.0, Anion Gap 10, Glomerular Filtration Rate > 60.0, Estimated Mean Plasma Glucose 134H, Hemoglobin A1c 6.3, Calcium Level 9.1, Total Creatine Kinase 213, Creatine Kinase MB 5.8H, Creatine Kinase MB Relative Index 2.72, Troponin I 0.02 03/16/21 18:35: Prothrombin Time 14.2H, Prothromb Time International Ratio 1.08, Activated Partial Thromboplast Time 29.2 03/16/21 22:25: Coronavirus (COVID-19)(PCR) NEGATIVE, Influenza Type A (RT-PCR) NEGATIVE, Influenza Type B (RT-PCR) NEGATIVE, Respiratory Syncytial Virus (PCR) NEGATIVE 03/17/21 00:05: Total Creatine Kinase 182, Creatine Kinase MB 4.8H, Creatine Kinase MB Relative Index 2.64, Troponin I 0.03# 03/17/21 02:17: Bedside Glucose (Misc Panel) 115H 03/17/21 05:23: Bedside Glucose (Misc Panel) 116H 03/17/21 11:58: Bedside Glucose (Misc Panel) 219H CBC/BMP Laboratory Tests 03/16/21 17:48 GME ATTESTATION GME ATTESTATION My faculty preceptor for this patient encounter was physically present during the encounter and was fully available. All aspects of the patient interview, examination, medical decision making process, and medical care plan development were reviewed and approved by the faculty preceptor. The faculty preceptor is aware and concurs with the plan as stated in the body of this note and will attest to such by his/her cosignature. Faraz Miller DO Mar 17, 2021 16:18
--- NOTE | 2021-03-17 17:43 | REPVR ---
PROCEDURE INFORMATION: Exam: MR Lumbar Spine Without Contrast Exam date and time: 03/17/2021 5:30 PM Age: 75 years old Clinical indication: Weakness; Additional info: Neuro deficits, no contrast please! TECHNIQUE: Imaging protocol: Multiplanar magnetic resonance images of the lumbar spine without intravenous contrast. COMPARISON: No relevant prior studies available. FINDINGS: Vertebrae: Unremarkable. Spinal cord: Normal signal. No cord compression. L1-L2: Disc bulge. Bilateral facet hypertrophy. Moderate spinal canal stenosis. Moderate bilateral neural foraminal narrowing. L2-L3: Disc bulge. Bilateral facet hypertrophy. No spinal canal stenosis. Moderate right and mild left neural foraminal narrowing. L3-L4: Disc bulge. Bilateral facet hypertrophy. Mild spinal canal stenosis. Moderate left and severe right neural foraminal narrowing. L4-L5: Disc bulge. Bilateral facet and ligamentum flavum hypertrophy. No spinal canal stenosis. Moderate to severe right and moderate left neural foraminal narrowing. L5-S1: Asymmetric disc bulge to the left. No spinal canal stenosis. Severe left and moderate right neural foraminal narrowing. Soft tissues: Unremarkable. IMPRESSION: No acute abnormality. Moderate spinal canal stenosis at L1-L2 and mild at L3-L4. Moderate bilateral neural foraminal narrowing at L1-L2, moderate right and mild left L2-L3, moderate left and severe right L3-L4, moderate to severe right and moderate left L4-L5, severe left and moderate right at L5-S1. Electronically signed by: Vahe Cross On 03/17/2021 17:43:10 PM
--- NOTE | 2021-03-17 17:48 | REPVR ---
PROCEDURE INFORMATION: Exam: MR Cervical Spine Without Contrast Exam date and time: 03/17/2021 4:57 PM Age: 75 years old Clinical indication: Weakness; Additional info: Neuro deficits, no contrast please! TECHNIQUE: Imaging protocol: Multiplanar magnetic resonance images of the cervical spine without contrast. COMPARISON: CT ANGIO NECK 03/16/2021 6:15 PM FINDINGS: Vertebrae: Unremarkable. Spinal cord: Normal signal. No cord compression. C2-C3: No significant disc disease. No significant spinal stenosis. C3-C4: Disc bulge and uncovertebral hypertrophy. No spinal canal stenosis. Severe bilateral neural foraminal narrowing. C4-C5: Uncovertebral hypertrophy. No spinal canal stenosis. Severe bilateral neural foraminal narrowing. C5-C6: Uncovertebral hypertrophy. Disc bulge. Mild spinal canal stenosis. Severe bilateral neural foraminal narrowing. C6-C7: Uncovertebral hypertrophy. Mild spinal canal stenosis. Severe bilateral neural foraminal narrowing. C7-T1: Uncovertebral hypertrophy. Severe left and mild to moderate right neural foraminal narrowing. No spinal canal stenosis. Soft tissues: Unremarkable. Vertebral arteries: Expected flow voids in the vertebral arteries. IMPRESSION: No acute abnormality. Mild spinal canal stenosis at C5-C6 and C6-C7. Multilevel degenerative disc disease and uncovertebral hypertrophy with neural foraminal narrowing. Severe bilateral neural foraminal narrowing at C3-C4, C4-C5, C5-C6, C6-C7, severe left and mild to moderate right at C7-T1. Electronically signed by: Vahe Cross On 03/17/2021 17:47:45 PM
[2021-03-17] MEDS ORDERED: HumaLOG INSULIN (NovoLOG) PER UNIT SC SCH (21:00)
[2021-03-17] MEDS ORDERED: ASPIRIN 81 MG CHEW TABLET PO SCH (21:00)
--- NOTE | 2021-03-17 21:08 | REPVR ---
PROCEDURE INFORMATION: Exam: CT Head Without Contrast Exam date and time: 03/17/2021 8:44 PM Age: 75 years old Clinical indication: Condition or disease; Other: R/O ic bleed 24h post-tpa admin for CVA TECHNIQUE: Imaging protocol: Computed tomography of the head without contrast. Radiation optimization: All CT scans at this facility use at least one of these dose optimization techniques: automated exposure control; mA and/or kV adjustment per patient size (includes targeted exams where dose is matched to clinical indication); or iterative reconstruction. COMPARISON: CT Head without contrast 03/16/2021 5:48 PM FINDINGS: Brain: There are moderate periventricular and subcortical lucencies consistent with chronic microvascular ischemic changes. The dey-white differentiation is maintained. No hemorrhage. No edema. Cerebral ventricles: No ventriculomegaly. Paranasal sinuses: Visualized sinuses are unremarkable. No fluid levels. Mastoid air cells: Visualized mastoid air cells are well aerated. Bones/joints: Unremarkable. No acute fracture. Soft tissues: Unremarkable. IMPRESSION: No acute intracranial abnormality. Chronic microvascular ischemic changes. Electronically signed by: Vahe Cross On 03/17/2021 21:07:20 PM
[2021-03-18] VITALS: BP 98/57
[2021-03-18 04:00] VITALS: BP 97/59
[2021-03-18 05:10] LABS: CHOLESTEROL RISK RATIO 2.531 (<5); THYROID STIMULATING HORMONE 4.4 uIU/ML (0.358-3.740)
[2021-03-18 08:00] VITALS: BP 108/59
[2021-03-18 08:07] LABS: HEMATOCRIT 47.5 % (42.0-52.0); HEMOGLOBIN 15.9 g/dl (13.5-17.5); MEAN CORPUSCULAR HGB CONC 33.5 g/dl (32.0-36.5); MEAN CORPUSCULAR VOLUME 92.6 fl (80.0-96.0); PLATELET COUNT, AUTOMATED 172 10^3/uL (150-450); RED BLOOD COUNT 5.13 10^6/uL (4.30-6.10); WHITE BLOOD COUNT 9.9 10^3/uL (4.0-10.0)
[2021-03-18 08:29] LABS: BLOOD UREA NITROGEN 20 MG/DL (7-18); CALCIUM LEVEL 9.3 MG/DL (8.8-10.2); CARBON DIOXIDE LEVEL 27 MEQ/L (21-32); CHLORIDE LEVEL 103 MEQ/L (98-107); CREATININE FOR GFR 0.85 MG/DL (0.70-1.30); GLOMERULAR FILTRATION RATE > 60.0 (>42); GLUCOSE, FASTING 130 MG/DL (70-100); POTASSIUM SERUM 4.2 MEQ/L (3.5-5.1); SODIUM LEVEL 136 MEQ/L (136-145)
[2021-03-18] MEDS: HumaLOG INSULIN (NovoLOG) PER UNIT SC SCH ×2 (08:29→12:29)
[2021-03-18] MEDS: MAGNESIUM OXIDE 400MG TAB (MAG-OX) PO SCH (08:33)
[2021-03-18] MEDS: POTASSIUM CHLORIDE 10 MEQ SR TABLET PO SCH (08:34)
[2021-03-18] MEDS: allopurinoL 300 MG TAB PO SCH (08:34)
[2021-03-18] MEDS: OMEPRAZOLE 20 MG CAP PO SCH (08:34)
[2021-03-18 08:35] VITALS: BP 108/59
[2021-03-18] MEDS: lisinopriL 5 MG TAB PO SCH (08:35)
[2021-03-18] MEDS: NICOTINE 21MG/24HR 1 EA TRANSDERMAL TD SCH (08:36)
--- NOTE | 2021-03-18 08:51 | ECHO ---
ECHOCARDIOGRAM DATE OF PROCEDURE: 03/17/2021 Age: 75 Gender: Male Height: 73 inches Weight: 198 pounds Body Surface Area: 2.14 m2 PATIENT LOCATION: Inpatient ICU Room 3209. REFERRING PHYSICIAN: Dr. Funes. INDICATION: CVA cardiac source of embolic material? MEASUREMENTS: 2D Measurements: RV 3.5 cm LV - 3.9 cm Septum 1.1 cm Posterior wall 1.1 cm Aortic Root 3.4 cm LA - 3.5 cm LVEF 75% Doppler Measurements: AV 1.96 m/s LVOT - 0.9 m/s LVOT diameter 1.8 cm MV-E 74, A 92, EA ratio 0.8 Early mitral deceleration time 211 msec E prime medial 7.3, A prime medial 8.8, E prime lateral 13.6 Average E/E prime ratio 7.1/PCWP 10.7 mmHg PV - 0.97 m/s Pulmonary artery acceleration time 95 msec PASP 39 mmHg IVC - 1.7 cm COMMENTS: Normal sinus rhythm without intraventricular conduction disturbance. A technically challenging study personally because of the patient's body habitus, but some diagnostically useful information was still obtained. M-mode and 2-dimensional echocardiography was performed with pulse, continuous wave, color flow, and tissue Doppler studies. Normal left ventricular size, wall thickness, and hyperkinetic wall motion. Normal left atrial size with grade 1 LV diastolic dysfunction but currently normal estimated mean left atrial pressure. Normal right heart chamber sizes and motion with mild pulmonary hypertension. Normal IVC size and collapse against an elevated central venous pressure. Normal aortic dimensions. Mild aortic valvular sclerosis without stenosis or apparent insufficiency. Mildly thickened mitral annulus but normal leaflet thickness and excursion without posterior systolic buckling. Very mild mitral insufficiency (physiologic). Normal appearing and functioning tricuspid valve. No apparent intracardiac mass or pericardial effusion. A cardiac source of embolic material is seriously suspect here. In light of the technical difficulties, would suggest a transesophageal echocardiogram. ANA MARIA
[2021-03-18] MEDS ORDERED: ASPIRIN 81MG ENTERIC TABLET PO SCH (09:00)
--- NOTE | 2021-03-18 11:04 | DS.PDOC ---
Discharge Summary General Date of Admission Mar 16, 2021 at 21:55 Date of Discharge 03/18/2021. Attending Physician: TIMUR GLORIA MD Discharge Summary PROCEDURES PERFORMED DURING STAY: tPA administration. ADMITTING DIAGNOSES: 1. Stroke DISCHARGE DIAGNOSES: 1. Lumbar radiculopathy. COMPLICATIONS/CHIEF COMPLAINT: Cva,Left Sided Weakness. HISTORY OF PRESENT ILLNESS: Patient is a 75-year-old male with a past medical history of COPD, hypertension, [id number] diabetes and is an active smoker, who presents with left lower leg weakness at 4:30 PM on 03/16/2021. He was evaluated in the emergency department after arriving 45 minutes after the onset of symptoms. He also started to complain of left upper extremity weakness at that time. The patient did not have any speech difficulty or weakness on the right side. [facility] by Dr. Martin, per Dr. Funes's note. An urgent neurological consultation was done and the patient consented to tPA administration. After administration was completely. The patient no longer had heaviness in his left upper extremity and he was able to wiggle his toes and move his left lower extremity a little which he was previously unable to do. He hadn't noticed any symptoms of shortness of breath or chest pain and denies any trouble with speech. He shouldn't was admitted for stroke workup. HOSPITAL COURSE: Head CT without contrast was done. This was normal. A brain MRI, neck CTA, vascular ultrasound of the lower extremities, all showed no acute abnormalities. There were microvascular changes secondary to chronic microvascular disease, consistent with the patient's past medical history of d iabetes, hypertension, and smoking. Dr. Menendez, the neurologist, was consulted. As part of the tPA administration protocol. An echocardiogram was also done. CBC levels remained stable and pointed to. No acute disease process. The patient's triglyceride level was mildly elevated at 157 on 03/18/2021. The patient's TSH was mildly elevated at 4.4 on 03/18/2021. The patient's creatinine level decreased from 1.12 on admission to 0.85 on 03/18/2021. The patient's CK- MB was 5.4 on admission and decreased to 4.8 on 03/17/2021. This was likely due to muscular stress of the left lower extremity. Per neurology, Dr. Menendez reported that the patient should be restarted on aspirin 81 mg daily after discharge. He noted that the L5-S1 spinal levels showed severe neural foraminal narrowing, likely causing radicular pain. He was unable to rule out whether the left upper extremity symptoms were due to a TIA or true neurological etiology since there were also C5-C7 severe neural or abdominal narrowing found on MRI. PT/OT evaluated the patient and report that the patient is well and does not require ongoing PT at this time. DISCHARGE MEDICATIONS: Please see below. ALLERGIES: Please see below. PHYSICAL EXAMINATION ON DISCHARGE: VITAL SIGNS: Please see below. GENERAL: Pleasant male sitting upright in the gurney in no acute physical distress, appears anxious HEENT: Non-icteric sclera, nares patent, oral mucosa and moist, no pharyngeal edema, Mallampati score four CARDIOVASCULAR: Systolic ejection murmur 2/6 appreciated in upper sternal areas bilaterally. RESPIRATORY:. Clear to auscultation bilaterally. No adventitious breath sounds. ABDOMINAL: Bowel sounds present, no pain to palpation EXTREMITIES:. No edema appreciated, bilateral pedal pulses +2 out of 2 NEUROLOGICAL: Cranial nerves III-12 intact, bilateral extremity muscle strength +5 out of 5, bilateral lower extremity muscle strength 5 out of 5, no blunting sensation in upper extremity dermatomes. There is still residual left lateral lower extremity blunted sensation consistent with S1 dermatome paresthesia. PSYCHOLOGICAL: She is pleasant and cooperative, oriented to self, place, time and situation. LABORATORY DATA: Please see below. IMAGING: Chest x-ray 03/16/2021 : No acute cardiopulmonary process. Head CT 03/16/2021: Moderate chronic microvascular disease. No acute intracranial lesion or injury. CT angiogram head with contrast 03/16/2021: Atherosclerotic plaque in the carotid siphons. Moderate stenosis. No intracranial large vessel critical stenosis or occlusion. Neck CTA 03/16/2021: No carotid or vertebral artery stenosis. Brain MRI 03/16/2021: Moderate chronic microvascular disease. No acute intracrani al lesion or injury. Vascular ultrasound 03/17/2021: 1. No hemodynamically significant stenosis in the right or left carotid arteries. Calcified plaques seen in the proximal right and left ICAs resulting in less than 50% stenosis. 2. No hemodynamically significant stenosis in the proximal ECA's. 3. Antegrade flow seen in the right and left vertebral arteries. Cervical spine MRI without contrast 03/17/2021: No acute abnormality Mild spinal canal stenosis at C5-C6 and C6-C7. Multilevel degenerative disc disease and uncovertebral hypertrophy with neural foraminal narrowing. Severe bilateral neural foraminal narrowing at C3-C4, C4-C5, C5-C6, C6-C7, severe left and mild to moderate right at C7-T1. Lumbar spine MRI without contrast 03/17/2021: No acute abnormality. Moderate spinal canal stenosis at L1-L2 and mild at L3-L4. Moderate bilateral neural foraminal narrowing at L1-L2, moderate right and mild left L2-L3, moderate left and severe right L3-L4, moderate to severe right and moderate left L4-L5, severe left and moderate right at L5-S1. Head CT without contrast 03/17/2021: Moderate chronic microvascular disease. No acute intracranial lesion or injury. Echocardiogram: 03/17/2021 Normal sinus rhythm without intraventricular conduction disturbance. A technically challenging study personally because of the patient's body habitus, but some diagnostically useful information was still obtained. M-mode and 2-dimensional echocardiography was performed with pulse, continuous wave, color flow, and tissue Doppler studies. Normal left ventricular size, wall thickness, and hyperkinetic wall motion. Normal left atrial size with grade 1 LV diastolic dysfunction but currently normal estimated mean left atrial pressure. Normal right heart chamber sizes and motion with mild pulmonary hypertension. Normal IVC size and collapse against an elevated central venous pressure. Normal aortic dimensions. Mild aortic valvular sclerosis without stenosis or apparent insufficiency. Mildly thickened mitral annulus but normal leaflet thickness and excursion without posterior systolic buckling. Very mild mitral insufficiency (physiologic). Normal appearing and functioning tricuspid valve. No apparent intracardiac mass or pericardial effusion. A cardiac source of embolic material is seriously suspect here. In light of the technical difficulties, would suggest a transesophageal echocardiogram. PROGNOSIS: Fair ACTIVITY: As tolerated. DIET: Consistent carbohydrate diet. DISCHARGE INSTRUCTIONS: 1. Patient must follow-up with cardiology and neurology. 2. Cardiology follow-up for underlying cardiac conditions due to possibly TIA with LUE weakness. 3. The patient's left lower extremity weakness was likely secondary to a radiculopathy process. The patient needs further workup for this. 4. The patient was counseled on tobacco cessation. Please follow-up with PCP to maintain as patient reports that he will quit after this hospitalization. 5. Please follow up with PCP within 5-6 days. 6. Please follow up with neurology within the next 5-6 days. 7. Please follow up with cardiology within the next week. 8. Follow-up instructions per Neurology. 9. For possible Sick Euthyroid Syndrome, follow-up with PCP for thyroid re- evaluation and follow-up. 10. ABE is not being considered at this time because there is a low suspicion of a cardiac etiology behind pt's presentation. The pt's 2D-echo shows no cardiac structural abnormalities at this time and there is a very low suspicion for a stroke etiology. The patient should be seen by PCP for follow-up for cardiology work-up and optimization of cardiac health. DISCHARGE CONDITION: Stable. TIME SPENT ON DISCHARGE: Greater than 34 minutes. Vital Signs/I&Os Vital Signs Date Time Temp Pulse Resp B/P (MAP) Pulse Ox O2 Delivery O2 Flow Rate FiO2 03/18/21 08:35 108/59 03/18/21 08:00 97.3 03/18/21 08:00 70 18 89 Nasal Cannula 1.0 I&O- Last 24 Hours up to 6 AM 03/18/21 06:00 Intake Total 1700 ml Output Total 1000 ml Balance 700 ml Laboratory Data Labs 24H Laboratory Tests 2 03/17/21 11:58: Bedside Glucose (Misc Panel) 219H 03/17/21 17:34: Bedside Glucose (Misc Panel) 109 03/17/21 20:18: Bedside Glucose (Misc Panel) 175H 03/18/21 04:19: Triglycerides Level 157H, Total Cholesterol 81, LDL Cholesterol 18, Non-HDL Cholesterol (LDL + VLDL) 49, Total HDL Cholesterol 32L, Cholesterol/HDL Ratio 2.531, Thyroid Stimulating Hormone (TSH) 4.400H 03/18/21 07:43: Bedside Glucose (Misc Panel) 141H 03/18/21 07:57: Nucleated Red Blood Cells % (auto) 0.0, Anion Gap 6L, Glomerular Filtration Rate > 60.0, Calcium Level 9.3 CBC/BMP Laboratory Tests 03/18/21 07:57 FSBS Laboratory Tests Test 03/17/21 11:58 03/17/21 17:34 03/17/21 20:18 6/4/21 07:43 Range/Units Bedside Glucose (Misc Panel) 219 109 175 141 83-110 MG/DL Discharge Medications Scheduled Allopurinol (Zyloprim) 300 Mg Tab, 300 MG PO DAILY, (Reported) Aspirin (Aspirin EC) 81 Mg Tablet.dr, 81 MG PO DAILY Dapagliflozin Propanediol (Farxiga) 10 Mg Tab, 10 MG PO DAILY, (Reported) Dulaglutide (Trulicity) 1.5 Mg/0.5 Ml Inj, 1.5 MG SC 1XWK, (Reported) SUNDAY MORNING Hydrochlorothiazide (Hydrochlorothiazide) 25 Mg Tablet, 25 MG PO DAILY, (Reported) Lisinopril (Lisinopril) 5 Mg Tab, 5 MG PO DAILY, (Reported) Magnesium Oxide (Magnesium Oxide) 400 Mg Tablet, 400 MG PO DAILY, (Reported) Meloxicam (Meloxicam) 15 Mg Tablet, 15 MG PO DAILY, (Reported) Metformin HCl (Metformin HCl) 500 Mg Tab, 1,000 MG PO BIDWM, (Reported) Omeprazole (Omeprazole) 20 Mg Capsule.dr, 20 MG PO DAILY, (Reported) Potassium Chloride (Potassium Chloride) 10 Meq Cap, 10 MEQ PO DAILY, (Reported) Rosuvastatin Calcium (Crestor) 20 Mg Tab, 20 MG PO DAILY, (Reported) Sitagliptin Phosphate (Januvia) 100 Mg Tab, 100 MG PO DAILY, (Reported) Umeclidinium Brm/Vilanterol Tr (Anoro Ellipta 62.5-25 Mcg INH) 1 Aer Aer, 1 PUFF INH DAILY, (Reported) Scheduled PRN Albuterol Sulfate (Ventolin Hfa) 108 Mcg/Act Aer, 2 PUFFS INH Q4H PRN for SHORTNESS OF BREATH, (Reported) Cyclobenzaprine HCl (Cyclobenzaprine HCl) 10 Mg Tab, 10 MG PO BID PRN for MUSCLE SPASMS, (Reported) Allergies Coded Allergies: Meat (Verified Allergy, Severe, [place] MEAT, anaphlyaxis, 07/31/19) anaphlyaxis morphine (Verified Adverse Reaction, Intermediate, "BETANCOURT MY THROAT", 09/25/19) GME ATTESTATION GME ATTESTATION My faculty preceptor for this patient encounter was physically present during the encounter and was fully available. All aspects of the patient interview, examination, medical decision making process, and medical care plan development were reviewed and approved by the faculty preceptor. The faculty preceptor is aware and concurs with the plan as stated in the body of this note and will att est to such by his/her cosignature. Faraz Miller DO Mar 18, 2021 09:19
[2021-03-18] MEDS ORDERED: ASPI-551 PO (11:13)
[2021-03-18 12:00] VITALS: BP 110/61
--- NOTE | 2021-03-19 00:29 | ECGEPIP ---
[facility] Test Date: 2021-03-17 Pat Name: RAUL FRAGOSO Department: Room: [place] [address] Gender: Male Laser Beam Cutter: Zaid VELIZ : 1945 Requested By: FELIX Ledesma Order Number: [id number] Reading MD: Leobardo Neville Measurements Intervals [place] Rate: 72 P: 59 NM: 242 QRS: 70 QRSD: 108 T: 22 QT: 408 QTc: 446 Interpretive Statements Sinus rhythm with 1st degree AV block T wave abnormality, consider anterior ischemia Compared to prior tracings (3) in the system, more ST/T changes now noted Electronically Signed on 03-19-2021 0:29:01 EDT by Leobardo Neville
--- NOTE | 2021-03-20 23:12 | CR ---
NEUROLOGY CONSULTATION NOTE DATE: 03/17/2021 REQUESTING PHYSICIAN: Dr. Kieran Pope REASON FOR CONSULTATION: Suspected stroke. HISTORY OF PRESENT ILLNESS: Patient is a 75-year-old male with past medical history significant for type 2 diabetes, hypertension, former tobacco user, with history of chronic low back pain, lumbar spondylosis; status post two back surgeries, with history of sciatica or lumbar radiculopathy down both legs. The patient presented with numbness from the knee to his foot involving his left lower extremity around 4:30 p.m. Upon arrival to the Emergency Department, the patient was also complaining of left upper extremity heaviness. The Emergency Department consulted stroke neurology at [facility], Dr. Jose Martin, advised for TPA administration. The patient was given TPA after having a negative head CT and negative CT angiography of the head and neck. The patient had an MRI of the brain while in the hospital, which has so far concluded that there is no evidence of an acute stroke. MRI of the cervical and lumbosacral spine were ordered, showing significant left-sided L5-S1 neuroforaminal stenosis, significant degenerative disc disease involving the cervical and lumbosacral spine, high-grade left C6-7 cervical neuroforaminal narrowing seen on the left as well. The patient has a longstanding history of diabetic neuropathy and significant paresthesias from the toes and feet. The patient states that he cannot lift his left leg above the bed from a lying down position. The patient does have history of left hip replacement. When repositioned and encouraged to produced best strength, he does reproduce normal 5/5 strength to bilateral quadriceps, hamstrings, tibialis anterior and iliopsoas muscles. He has adequate reasonable strength in bilateral upper extremities, which are symmetric. He denies any diplopia, dysarthria, dysphagia, vertigo, dizziness or ataxia at this time. Due to the patient receiving TPA, he was placed on bed rest orders. I recommended earlier this morning that DVT prophylaxis including sequential boots and RICK stockings be provided. At the present time, the patient was able to sit at bedside, stand up and ambulate fairly well. PAST MEDICAL HISTORY: COPD, gout, hypertension, noninsulin dependent diabetes, hyperlipidemia, history of nephrolithiasis, rotator cuff surgery bilaterally, left hip replacement, history of lumbar back trauma in 1968; first surgery in 1971 and second surgery [place] [address] Huddleston here in [place]. FAMILY HISTORY: Noncontributory. SOCIAL HISTORY: Patient denies use of any tobacco, alcohol or illicit drugs. He is a former smoker. REVIEW OF SYSTEMS: 14-point review of systems is obtained and is negative except as per HPI. PHYSICAL EXAMINATION: VITAL SIGNS: Blood pressure 111/62, pulse rate 85, respiratory rate 16, oxygenation 91% on 2 liters nasal cannula, temperature 98.2 degrees Fahrenheit. GENERAL: Patient is oriented to person, place and time. Speech, language, comprehension, repetition are intact. HEENT: Pupils are 3 mm, round and reactive. Extraocular movements are intact. There is no nystagmus. Sensation to V1, V2, V3 is intact to light touch. There is no facial asymmetry. Tongue is midline. Hearing is equal to finger rub. NEUROLOGIC: There is on pronator drift. Patient has reasonable 5- strength in bilateral deltoids due to past rotator cuff surgeries. Biceps bilaterally are 5/5 as well as triceps. Hand sales account leader as well are 5/5. Bilateral iliopsoas are 5/5 with repositioning of the left lower extremity. Quadriceps are +5. Tibialis anterior and gastrocnemius are 5/5. Sensory gradient is present with vibratory sense not present at the great toes and minimally present at the ankles. Romberg testing and gait are negative for any gross ataxia. Gait is slightly cautious as patient does have neuropathy. There is no gross ataxia, dysmetria or tremor. ASSESSMENT: 1. A 75-year-old male with transient left lower extremity numbness and weakness from the knee down, more effecting S1 distribution than L5 with MRI evidence of L5-S1 nerve root involvement on the left, suspecting radiculopathy. 2. There is no MRI evidence of an acute stroke. Transient right upper extremity weakness while present during MRI of the brain. Would conclude that the weakness of the left arm and leg were not related to stroke. Suspect cervical radiculopathy involving the left upper extremity. PLAN: 1. Continue hospital protocol following TPA administration including repeat head CT, optimize hypertension, hyperlipidemia, diabetes. 2. Recommend outpatient orthopedic spine evaluation with [facility] under the care of Dr. Dank Dahl as [facility] does not provide spine care at this time. 3. Patient can follow in the neurology clinic 4 to 6 weeks after discharge.
== END 2021-03-18 13:00 | disposition home or self-care (01) | DRG 552 ==
LOC: M ED 17:22 → EDBD 17:22 → M ED INP 20:06 → UNDOADMIN 20:06 → M ED INP 21:55 → ENRESERV 03-17 00:50 → M ICU 03-17 02:00
PROVIDERS: ADMIT Family Medicine; ATTEND Family Medicine
DX: M54.16 Radiculopathy, lumbar region (principal); I10 Essential (primary) hypertension; E11.9 Type 2 diabetes mellitus without complications; J44.9 Chronic obstructive pulmonary disease, unspecified; M54.12 Radiculopathy, cervical region; F17.200 Nicotine dependence, unspecified, uncomplicated; Z79.899 Other long term (current) drug therapy; Z79.82 Long term (current) use of aspirin; Z88.5 Allergy status to narcotic agent; Z91.018 Allergy to other foods; M10.9 Gout, unspecified; E78.5 Hyperlipidemia, unspecified; Z96.642 Presence of left artificial hip joint

== ENCOUNTER → 2021-04-22 | Outpatient (REF) | payer MEDICARE, OTHER ==
[~2021-04-22] MED LIST changes: +ASPI-551 PO; +MAGN400T2 PO; +OMEP40CA4 PO; -OMEP40CA97 PO
[2021-04-22 12:14] LABS: BLOOD UREA NITROGEN 18 MG/DL (7-18); CALCIUM LEVEL 9.5 MG/DL (8.8-10.2); CARBON DIOXIDE LEVEL 29 MEQ/L (21-32); CHLORIDE LEVEL 99 MEQ/L (98-107); CREATININE FOR GFR 1.05 MG/DL (0.70-1.30); GLOMERULAR FILTRATION RATE > 60.0 (>42); GLUCOSE, FASTING 126 MG/DL (70-100); POTASSIUM SERUM 4.5 MEQ/L (3.5-5.1); SODIUM LEVEL 134 MEQ/L (136-145)
[2021-04-22 12:47] LABS: HEMOGLOBIN A1c 6.9 %
== END ==
LOC: M SFHCCLAY 09:16
PROVIDERS: ATTEND Family Medicine
DX: E11.9 Type 2 diabetes mellitus without complications (principal); M48.02 Spinal stenosis, cervical region; M48.062 Spinal stenosis, lumbar region with neurogenic claudication; J44.9 Chronic obstructive pulmonary disease, unspecified; I10 Essential (primary) hypertension; E78.5 Hyperlipidemia, unspecified; K21.9 Gastro-esophageal reflux disease without esophagitis; M67.911 Unspecified disorder of synovium and tendon, right shoulder; N52.01 Erectile dysfunction due to arterial insufficiency; F17.200 Nicotine dependence, unspecified, uncomplicated; M10.9 Gout, unspecified; Z86.006 Personal history of melanoma in-situ; Z87.442 Personal history of urinary calculi
CPT/HCPCS: 80048; 83036; G0463

== ENCOUNTER → 2021-08-15 | Outpatient (REF) | payer MEDICARE, OTHER ==
[2021-08-15 13:39] LABS: BASO # 0.1 10^3/uL (0.0-0.2); BASO % 0.9 % (0.0-1.0); EOS # 0.2 10^3/uL (0.0-0.5); EOS % 2.4 % (0.0-3.0); HEMATOCRIT 48.9 % (42.0-52.0); HEMOGLOBIN 16.1 g/dl (13.5-17.5); LYMPH # 1.8 10^3/uL (1.5-5.0); MEAN CORPUSCULAR HEMOGLOBIN 31.1 pg (27.0-33.0); MEAN CORPUSCULAR HGB CONC 32.9 g/dl (32.0-36.5); MEAN CORPUSCULAR VOLUME 94.4 fl (80.0-96.0); MONO # 0.6 10^3/uL (0.0-0.8); MONO % 6.8 % (2.0-8.0); NEUTROPHILS # 5.5 10^3/uL (1.5-8.5); NEUTROPHILS % 67.5 % (36.0-66.0); PLATELET COUNT, AUTOMATED 191 10^3/uL (150-450); RED BLOOD COUNT 5.18 10^6/uL (4.30-6.10); WHITE BLOOD COUNT 8.1 10^3/uL (4.0-10.0)
[2021-08-15 13:51] LABS: HEMOGLOBIN A1c 6.6 %
[2021-08-15 14:10] LABS: ALBUMIN 4.3 GM/DL (3.2-5.2); ALT/SGPT 22 U/L (12-78); BILIRUBIN,TOTAL 0.3 MG/DL (0.2-1.0); BLOOD UREA NITROGEN 22 MG/DL (7-18); CALCIUM LEVEL 9.7 MG/DL (8.8-10.2); CARBON DIOXIDE LEVEL 32 MEQ/L (21-32); CHLORIDE LEVEL 100 MEQ/L (98-107); CHOLESTEROL LEVEL 98 MG/DL (<200); CHOLESTEROL RISK RATIO 2.578 (<5); CREATININE FOR GFR 1.06 MG/DL (0.70-1.30); GLOMERULAR FILTRATION RATE > 60.0 (>42); GLUCOSE, FASTING 135 MG/DL (70-100); HDL CHOLESTEROL 38 MG/DL (>40); LDL CHOLESTEROL 40 MG/DL (<100); NON-HDL-C 60 MG/DL; POTASSIUM SERUM 4.3 MEQ/L (3.5-5.1); SODIUM LEVEL 135 MEQ/L (136-145); TOTAL PROTEIN 7.6 GM/DL (6.4-8.2); TRIGLYCERIDES LEVEL 100 MG/DL (<150)
[2021-08-15 14:15] LABS: MALB URINE SIEMENS 35.8 MG/L; MAU/CREAT RATIO 35.8 MCG/MG (0.0-30.0)
== END ==
LOC: M SFHCCLAY 08:42
PROVIDERS: ATTEND Family Medicine
DX: I10 Essential (primary) hypertension (principal); E11.9 Type 2 diabetes mellitus without complications

== ENCOUNTER → 2021-11-25 | Outpatient (REF) | payer MEDICARE, OTHER ==
[~2021-11-25] MED LIST changes: -LISI-898 PO; +LISI5TAB11 PO
== END ==
LOC: M SFHCCLAY 11:10
PROVIDERS: ATTEND Nurse Practitioner Women's Health
DX: Z12.5 Encounter for screening for malignant neoplasm of prostate (principal)

== ENCOUNTER → 2021-12-16 | Outpatient (CLI) | payer MEDICARE, OTHER | LOC: M CLY 08:10 | PROVIDERS: ATTEND Urology | DX: N52.9 Male erectile dysfunction, unspecified (principal); E11.9 Type 2 diabetes mellitus without complications; I10 Essential (primary) hypertension; J44.9 Chronic obstructive pulmonary disease, unspecified; E78.2 Mixed hyperlipidemia ==

== ENCOUNTER → 2021-12-16 | Outpatient (REF) | payer MEDICARE, OTHER ==
[2021-12-16 11:22] LABS: HEMATOCRIT 48.6 % (42.0-52.0); HEMOGLOBIN 15.8 g/dl (13.5-17.5); MEAN CORPUSCULAR HEMOGLOBIN 31.2 pg (27.0-33.0); MEAN CORPUSCULAR HGB CONC 32.5 g/dl (32.0-36.5); PLATELET COUNT, AUTOMATED 170 10^3/uL (150-450); RED BLOOD COUNT 5.06 10^6/uL (4.30-6.10); WHITE BLOOD COUNT 8.3 10^3/uL (4.0-10.0)
[2021-12-16 11:29] LABS: INR 0.97; PROTHROMBIN TIME 13.3 SECONDS (12.7-14.5)
[2021-12-16 12:14] LABS: ALBUMIN 4.4 GM/DL (3.2-5.2); ALT/SGPT 29 U/L (12-78); BILIRUBIN,TOTAL 0.5 MG/DL (0.2-1.0); BLOOD UREA NITROGEN 23 MG/DL (7-18); CALCIUM LEVEL 9.9 MG/DL (8.8-10.2); CARBON DIOXIDE LEVEL 30 MEQ/L (21-32); CHLORIDE LEVEL 103 MEQ/L (98-107); CREATININE FOR GFR 1.08 MG/DL (0.70-1.30); GLOMERULAR FILTRATION RATE > 60.0 (>42); GLUCOSE, FASTING 133 MG/DL (70-100); POTASSIUM SERUM 4.7 MEQ/L (3.5-5.1); SODIUM LEVEL 138 MEQ/L (136-145); TOTAL PROTEIN 7.7 GM/DL (6.4-8.2)
== END ==
LOC: M LABSMT 08:04
PROVIDERS: ATTEND Urology
DX: N52.9 Male erectile dysfunction, unspecified (principal)

== ENCOUNTER → 2022-01-13 | Outpatient (REF) | payer MEDICARE, OTHER ==
[~2022-01-13] MED LIST changes: +ALLO10TA PO
[2022-01-13 11:34] LABS: APPEARANCE, URINE CLEAR (CLEAR); BACTERIA, URINE AUTO NEGATIVE (NEGATIVE); BILIRUBIN, URINE AUTO NEGATIVE (NEGATIVE); BLOOD, URINE BLOOD NEGATIVE (NEGATIVE); COLOR, URINE YELLOW (YELLOW); GLUCOSE, URINE (UA) AUTO 3+ mg/dL (NEGATIVE); KETONE, URINE AUTO NEGATIVE (NEGATIVE); LEUKOCYTE ESTERASE, URINE AUTO NEGATIVE (NEGATIVE); NITRITE, URINE AUTO NEGATIVE (NEGATIVE); PROTEIN, URINE AUTO NEGATIVE (NEGATIVE); RBC, URINE AUTO 0 /HPF (0-3); SPECIFIC GRAVITY URINE AUTO 1.024 (1.002-1.035); SQUAMOUS EPITHELIAL CELL UR AU 0 /HPF (0-6); UROBILINOGEN, URINE AUTO 0.2 mg/dL (0.0-2.0); WBC, URINE AUTO 0 /HPF (0-3)
== END ==
LOC: M SFHCCLAY 09:27
PROVIDERS: ATTEND Urology
DX: N20.0 Calculus of kidney (principal)

== ENCOUNTER → 2022-01-18 | Outpatient (CLI) | payer MEDICARE, OTHER | LOC: M LABSMTC 09:12 | PROVIDERS: ATTEND Anesthesiology | DX: Z01.812 Encounter for preprocedural laboratory examination (principal); Z11.52 Encounter for screening for COVID-19 ==

== ENCOUNTER 2022-01-23 05:59 | Day surgery (SDC) | payer MEDICARE, OTHER ==
[~2022-01-23] VITALS: Ht 180.3 cm; Wt 81.6 kg
[2022-01-23] MEDS ORDERED: LR 1,000 ML IV ONE (06:00)
[2022-01-23] MEDS ORDERED: VANCOMYCIN HCL 1,000 MG, VIAL MATE ADAPTER 1 EACH in NS 250 ML IV ONE (06:00)
[2022-01-23] MEDS ORDERED: GENTAMICIN 100 MG in IV 1 EA IV ONE (06:00)
[2022-01-23] MEDS ORDERED: LIDOCAINE 1% MDV 20ML VIAL SQ PRN (06:00)
[2022-01-23] MEDS ORDERED: fentaNYL 100 MCG/2 ML INJECTION As Ordered ONE (06:55)
[2022-01-23] MEDS ORDERED: MIDAZOLAM INJ 2MG/2ML VIAL (J2250 PER 1MG) As Ordered ONE (06:55)
[2022-01-23] MEDS ORDERED: SUGAMMADEX SODIUM 500 MG/5 ML VIAL (BRIDION) As Ordered ONE (06:56)
[2022-01-23] MEDS ORDERED: dexameTHASONE 4 MG/ML 1ML VIAL (J1100 PER 1MG) As Ordered ONE (06:56)
[2022-01-23] MEDS ORDERED: ONDANSETRON 4MG/2ML VIAL As Ordered ONE (06:56)
[2022-01-23] MEDS ORDERED: LIDOCAINE 2% 100MG/5ML SDV (FOR ANES.) As Ordered ONE (06:56)
[2022-01-23] MEDS ORDERED: propofoL 200 MG/20 ML VIAL As Ordered ONE (06:57)
[2022-01-23] MEDS ORDERED: ROCURONIUM BROMIDE 50 MG/5 ML VIAL As Ordered ONE ×2 (06:57→08:55)
[2022-01-23] MEDS ORDERED: ACETAMINOPHEN 1000MG 100ML IV BTL (OFIRMEV) (J0131 PER 10MG) As Ordered ONE (07:04)
[2022-01-23] MEDS ORDERED: BACITRACIN OINTMENT 30GM TUBE As Ordered ONE (07:12)
[2022-01-23] MEDS ORDERED: HYDR-3713 PO (10:11)
[2022-01-23] MEDS ORDERED: BACT800T5 PO (10:11)
[2022-01-23] MEDS ORDERED: METOCLOPRAMIDE INJ 10MG/2ML VIAL (J2765 PER 1) IV PRN (10:30)
[2022-01-23] MEDS ORDERED: LR 1,000 ML IV SCH (10:30)
[2022-01-23] MEDS ORDERED: ONDANSETRON 4MG/2ML VIAL IV PRN (10:30)
[2022-01-23] MEDS ORDERED: ALBUTEROL SULFATE 2.5 MG/0.5 ML INH NEB SOLN INH ONE (10:30)
[2022-01-23] MEDS ORDERED: oxyCODONE 5MG TAB PO PRN (10:30)
[2022-01-23] MEDS ORDERED: fentaNYL 100 MCG/2 ML INJECTION IV PRN (10:30)
[2022-01-23 12:25] VITALS: BP 111/60
== END 2022-01-23 12:30 | disposition home or self-care (01) ==
LOC: M SDC 05:59
PROVIDERS: ATTEND Urology
DX: N52.9 Male erectile dysfunction, unspecified (principal); E11.9 Type 2 diabetes mellitus without complications; I10 Essential (primary) hypertension; E78.5 Hyperlipidemia, unspecified; J44.9 Chronic obstructive pulmonary disease, unspecified; F17.218 Nicotine dependence, cigarettes, with other nicotine-induced disorders; K21.9 Gastro-esophageal reflux disease without esophagitis; Z88.5 Allergy status to narcotic agent; Z91.018 Allergy to other foods; Z79.82 Long term (current) use of aspirin; Z79.84 Long term (current) use of oral hypoglycemic drugs; Z79.899 Other long term (current) drug therapy; Z79.51 Long term (current) use of inhaled steroids
CPT/HCPCS: 54405; C1813; J0131; J1100; J1580; J2250; J2405; J3010; J3370

== ENCOUNTER → 2022-03-22 | Outpatient (REF) | payer MEDICARE, OTHER ==
[~2022-03-22] MED LIST changes: +BACT800T5 PO; +HYDR-3713 PO
[2022-03-22 12:13] LABS: HEMOGLOBIN A1c 6.4 %
[2022-03-22 12:20] LABS: ALBUMIN 4.2 GM/DL (3.2-5.2); ALT/SGPT 25 U/L (12-78); BILIRUBIN,TOTAL 0.8 MG/DL (0.2-1.0); BLOOD UREA NITROGEN 21 MG/DL (7-18); CALCIUM LEVEL 9.2 MG/DL (8.8-10.2); CARBON DIOXIDE LEVEL 28 MEQ/L (21-32); CHLORIDE LEVEL 101 MEQ/L (98-107); GLOMERULAR FILTRATION RATE > 60.0 (>42); GLUCOSE, FASTING 136 MG/DL (70-100); POTASSIUM SERUM 4.5 MEQ/L (3.5-5.1); SODIUM LEVEL 134 MEQ/L (136-145); TOTAL PROTEIN 8.2 GM/DL (6.4-8.2)
== END ==
LOC: M SFHCCLAY 08:10
PROVIDERS: ATTEND Family Medicine
DX: M79.601 Pain in right arm (principal); Z79.899 Other long term (current) drug therapy

== ENCOUNTER → 2022-06-20 | Outpatient (REF) | payer MEDICARE, OTHER ==
[2022-06-20 12:16] LABS: HEMOGLOBIN A1c 6.6 %
[2022-06-20 12:27] LABS: ALBUMIN 4.3 GM/DL (3.2-5.2); ALT/SGPT 24 U/L (12-78); BILIRUBIN,TOTAL 0.6 MG/DL (0.2-1.0); BLOOD UREA NITROGEN 21 MG/DL (7-18); CARBON DIOXIDE LEVEL 28 MEQ/L (21-32); CHLORIDE LEVEL 98 MEQ/L (98-107); CREATININE FOR GFR 1.13 MG/DL (0.70-1.30); GLOMERULAR FILTRATION RATE > 60.0 (>42); GLUCOSE, FASTING 106 MG/DL (70-100); POTASSIUM SERUM 4.7 MEQ/L (3.5-5.1); SODIUM LEVEL 132 MEQ/L (136-145); TOTAL PROTEIN 7.8 GM/DL (6.4-8.2)
== END ==
LOC: M SFHCCLAY 09:01
PROVIDERS: ATTEND Family Medicine
DX: E11.40 Type 2 diabetes mellitus with diabetic neuropathy, unspecified (principal)

== ENCOUNTER → 2022-07-11 | Outpatient (CLI) | payer MEDICARE, OTHER | LOC: M RAD 13:31 | PROVIDERS: ATTEND Physician Assistant | DX: R91.8 Other nonspecific abnormal finding of lung field (principal); J43.1 Panlobular emphysema ==

== ENCOUNTER → 2022-09-19 | Outpatient (REF) | payer MEDICARE, OTHER ==
[2022-09-19 12:17] LABS: ALBUMIN 4.3 G/DL (3.2-5.2); BILIRUBIN,TOTAL 0.8 MG/DL (0.3-1.2); CALCIUM LEVEL 9.8 MG/DL (8.3-10.6); CHOLESTEROL RISK RATIO 2.74 (<5); CREATININE FOR GFR 1.27 MG/DL (0.70-1.30); HDL CHOLESTEROL 30.6 MG/DL (>40); POTASSIUM SERUM 5.1 MMOL/L (3.5-5.1); TOTAL PROTEIN 7.6 G/DL (5.7-8.2)
[2022-09-19 12:18] LABS: HEMOGLOBIN A1c 6.4 % (4.0-6.0)
[2022-09-19 12:49] LABS: MAU/CREAT RATIO 29.8 MCG/MG (0.0-30.0)
== END ==
LOC: M SFHCCLAY 08:23
PROVIDERS: ATTEND Family Medicine
DX: E11.40 Type 2 diabetes mellitus with diabetic neuropathy, unspecified (principal)

== ENCOUNTER → 2022-12-20 | Outpatient (REF) | payer MEDICARE, OTHER ==
[~2022-12-20] MED LIST changes: -POTA10CA32 PO; +POTA10CA33 PO
[2022-12-20 17:32] LABS: HEMOGLOBIN A1c 6.8 % (4.0-6.0)
[2022-12-20 17:46] LABS: ALBUMIN 4.3 G/DL (3.2-5.2); ALKALINE PHOSPHATASE 113 U/L (46-116); ALT/SGPT 33 U/L (7.0-40); AST/SGOT 39 U/L (<34); BILIRUBIN,TOTAL 0.7 MG/DL (0.3-1.2); BLOOD UREA NITROGEN 27 MG/DL (9-23); CALCIUM LEVEL 9.4 MG/DL (8.3-10.6); CARBON DIOXIDE LEVEL 24 MMOL/L (20-31); CHLORIDE LEVEL 98 MMOL/L (98-107); CREATININE FOR GFR 1.23 MG/DL (0.70-1.30); GLOMERULAR FILTRATION RATE > 60.0 (>42); GLUCOSE, FASTING 144 MG/DL (74-106); POTASSIUM SERUM 4.5 MMOL/L (3.5-5.1); SODIUM LEVEL 137 MMOL/L (136-145); TOTAL PROTEIN 7.5 G/DL (5.7-8.2)
== END ==
LOC: M SFHCCLAY 13:25
PROVIDERS: ATTEND Family Medicine
DX: E11.40 Type 2 diabetes mellitus with diabetic neuropathy, unspecified (principal)

== ENCOUNTER 2023-01-29 07:56 | Day surgery (SDC) | payer MEDICARE, OTHER ==
[~2023-01-29] VITALS: Ht 180.3 cm; Wt 79.4 kg
[~2023-01-29 07:56] MED LIST changes: +ARNU1INH3; +MELO15TA28; +NS 1,000 ML IV ONE
[2023-01-29] MEDS ORDERED: KETAMINE HCL 200MG/20ML VIAL As Ordered ONE (08:28)
[2023-01-29] MEDS ORDERED: propofoL 200 MG/20 ML VIAL As Ordered ONE (08:43)
[2023-01-29 09:21] VITALS: BP 105/57
== END 2023-01-29 09:44 | disposition home or self-care (01) ==
LOC: M OPP 07:56
PROVIDERS: ATTEND Internal Medicine Gastroenterology
DX: K57.30 Diverticulosis of large intestine without perforation or abscess without bleeding (principal); K64.8 Other hemorrhoids; Z86.010 Personal history of colon polyps

== ENCOUNTER → 2023-03-28 | Outpatient (REF) | payer MEDICARE, OTHER ==
[~2023-03-28] MED LIST changes: -NS 1,000 ML IV ONE
[2023-03-28 11:19] LABS: BASO # 0.1 10^3/uL (0.0-0.2); BASO % 0.9 % (0.0-1.0); EOS # 0.1 10^3/uL (0.0-0.5); EOS % 1.1 % (0.0-3.0); HEMATOCRIT 46.6 % (42.0-52.0); HEMOGLOBIN 14.8 g/dl (13.5-17.5); LYMPH # 1.6 10^3/uL (1.5-5.0); LYMPH % 20.9 % (24.0-44.0); MEAN CORPUSCULAR HEMOGLOBIN 30.1 pg (27.0-33.0); MEAN CORPUSCULAR HGB CONC 31.8 g/dl (32.0-36.5); MEAN CORPUSCULAR VOLUME 94.7 fl (80.0-96.0); MONO # 0.5 10^3/uL (0.0-0.8); MONO % 6.8 % (2.0-8.0); NEUTROPHILS # 5.3 10^3/uL (1.5-8.5); PLATELET COUNT, AUTOMATED 123 10^3/uL (150-450); RED BLOOD COUNT 4.92 10^6/uL (4.30-6.10); WHITE BLOOD COUNT 7.5 10^3/uL (4.0-10.0)
[2023-03-28 11:35] LABS: ALBUMIN 4.5 G/DL (3.2-5.2); ALKALINE PHOSPHATASE 141 U/L (46-116); ALT/SGPT 11 U/L (7.0-40); AST/SGOT 21 U/L (<34); BILIRUBIN,TOTAL 0.7 MG/DL (0.3-1.2); BLOOD UREA NITROGEN 30 MG/DL (9-23); CALCIUM LEVEL 9.4 MG/DL (8.3-10.6); CARBON DIOXIDE LEVEL 28 MMOL/L (20-31); CHLORIDE LEVEL 99 MMOL/L (98-107); CREATININE FOR GFR 1.18 MG/DL (0.70-1.30); GLOMERULAR FILTRATION RATE > 60.0 (>42); GLUCOSE, FASTING 126 MG/DL (74-106); POTASSIUM SERUM 4.4 MMOL/L (3.5-5.1); SODIUM LEVEL 136 MMOL/L (136-145); TOTAL PROTEIN 7.5 G/DL (5.7-8.2)
== END ==
LOC: M SFHCCLAY 08:29
PROVIDERS: ATTEND Family Medicine
DX: I10 Essential (primary) hypertension (principal); E11.40 Type 2 diabetes mellitus with diabetic neuropathy, unspecified

== ENCOUNTER 2023-06-08 20:09 | Inpatient (IN) | payer MEDICARE, OTHER ==
[~2023-06-08] VITALS: Ht 180.3 cm; Wt 83.1 kg
[~2023-06-08 20:09] MED LIST changes: -ARNU1INH3; +ARNU1INH3 INH; -K-TA10TA2 PO; -MELO15TA28; +POTA-165 PO; -POTA10CA33 PO; +POTA10CA60 PO
[2023-06-08 20:48] LABS: ABG BASE EXCESS -3.3 (-2.0-2.0); ABG HCO3 20.6 MMOL/L (22.0-26.0); ABG O2 SATURATION 89.9 % (95.0-99.0); ABG PARTIAL PRESSURE CO2 33.9 mmHg (35.0-45.0); ABG PARTIAL PRESSURE O2 58.1 mmHg (75.0-100.0); ABG STANDARD HCO3 21.5 MMOL/L. (22.0-26.0); ABG TOTAL CO2 21.7 MMOL/L (23.0-31.0); ABG pH (ARTERIAL) 7.402 UNITS (7.350-7.450)
[2023-06-08 21:38] LABS: ALBUMIN 3.8 G/DL (3.2-5.2); ALKALINE PHOSPHATASE 157 U/L (46-116); ALT/SGPT 19 U/L (7.0-40); AST/SGOT 22 U/L (<34); BILIRUBIN,DIRECT 0.3 MG/DL (<0.4); BILIRUBIN,TOTAL 0.5 MG/DL (0.3-1.2); BLOOD UREA NITROGEN 25 MG/DL (9-23); CARBON DIOXIDE LEVEL 21 MMOL/L (20-31); CHLORIDE LEVEL 103 MMOL/L (98-107); CK-MB VALUE MASS 3.7 NG/ML (<3.6); CPK CREATINE PHOSPHOKINASE 96 U/L (46-171); CREATININE FOR GFR 1.02 MG/DL (0.70-1.30); GLOMERULAR FILTRATION RATE > 60.0 (>42); GLUCOSE, FASTING 100 MG/DL (74-106); MB/CK RELATIVE INDEX 3.85 (< OR =4); POTASSIUM SERUM 4.3 MMOL/L (3.5-5.1); SODIUM LEVEL 138 MMOL/L (136-145); TOTAL PROTEIN 6.8 G/DL (5.7-8.2)
[2023-06-08 21:41] LABS: FREE T4 1.1 NG/DL (0.89-1.76); THYROID STIMULATING HORMONE 4.89 uIU/ML (0.55-4.78)
[2023-06-08] MEDS ORDERED: NS 2,450 ML in IV 1 EA IV ONE (21:45)
[2023-06-08] MEDS ORDERED: CEFEPIME HCL 2 GM in D5W MINI-BAG PLUS 50 ML IV ONE (22:00)
[2023-06-08 22:08] LABS: BASO % 0.6 % (0.0-1.0); EOS # 0.1 10^3/uL (0.0-0.5); EOS % 0.8 % (0.0-3.0); HEMATOCRIT 38.7 % (42.0-52.0); HEMOGLOBIN 12.6 g/dl (13.5-17.5); LYMPH # 1.1 10^3/uL (1.5-5.0); LYMPH % 16.7 % (24.0-44.0); MEAN CORPUSCULAR HEMOGLOBIN 30.1 pg (27.0-33.0); MEAN CORPUSCULAR HGB CONC 32.6 g/dl (32.0-36.5); MEAN CORPUSCULAR VOLUME 92.6 fl (80.0-96.0); MONO # 0.4 10^3/uL (0.0-0.8); MONO % 5.8 % (2.0-8.0); NEUTROPHILS % 75.6 % (36.0-66.0); RED BLOOD COUNT 4.18 10^6/uL (4.30-6.10); WHITE BLOOD COUNT 6.5 10^3/uL (4.0-10.0)
[2023-06-08 22:12] LABS: PLATELET COUNT, AUTOMATED 81 10^3/uL (150-450)
[2023-06-08] MEDS ORDERED: ROSU20TA61 PO (22:21)
[2023-06-08] MEDS ORDERED: ALB2.5NEB NEB (22:21)
[2023-06-08] MEDS ORDERED: ASPI81TA26 PO (22:21)
[2023-06-08] MEDS ORDERED: HOME MED LIST COMPLETE! XX SCH (22:25)
[2023-06-08 23:02] LABS: CK-MB VALUE MASS 3.7 NG/ML (<3.6)
[2023-06-08 23:04] LABS: MB/CK RELATIVE INDEX 4.02 (< OR =4)
[2023-06-09] MEDS ORDERED: DEXTROSE 50% 50ML SYRINGE IV PRN (00:20)
[2023-06-09] MEDS ORDERED: GLUCOSE 4GM CHEW TABLET PO PRN (00:20)
[2023-06-09] MEDS ORDERED: GLUCAGON INJ 1MG VIAL SC PRN (00:20)
[2023-06-09 01:36] LABS: PROCALCITONIN 0.1 ng/ml
[2023-06-09] MEDS ORDERED: DOXYCYCLINE HYCLATE 100 MG in D5W MINI-BAG PLUS 100 ML IV SCH (02:00)
[2023-06-09 03:00] VITALS: BP 130/71; TEMP 97; O2SAT 95
[2023-06-09] MEDS ORDERED: TETRACAINE 0.5% OPHTH SOLN 4ML OD STA (03:05)
[2023-06-09] MEDS: ALBUTEROL SULFATE 2.5MG/0.5ML INH NEB SOLN NEB SCH ×6 (03:57→23:18)
[2023-06-09] MEDS: cefTRIAXone SOD 2 GM in D5W MINI-BAG PLUS 50 ML IV SCH (04:47)
[2023-06-09] MEDS ORDERED: ACETAMINOPHEN TAB 650MG DOSE (2X325MG) PO ONE (06:00)
[2023-06-09 06:46] LABS: BASO % 0.3 % (0.0-1.0); HEMATOCRIT 36.9 % (42.0-52.0); HEMOGLOBIN 11.9 g/dl (13.5-17.5); LYMPH # 0.5 10^3/uL (1.5-5.0); LYMPH % 13.2 % (24.0-44.0); MEAN CORPUSCULAR HEMOGLOBIN 30.2 pg (27.0-33.0); MEAN CORPUSCULAR HGB CONC 32.2 g/dl (32.0-36.5); MEAN CORPUSCULAR VOLUME 93.7 fl (80.0-96.0); MONO # 0.1 10^3/uL (0.0-0.8); MONO % 1.4 % (2.0-8.0); NEUTROPHILS % 84.8 % (36.0-66.0); RED BLOOD COUNT 3.94 10^6/uL (4.30-6.10); WHITE BLOOD COUNT 3.6 10^3/uL (4.0-10.0)
[2023-06-09 06:53] LABS: PLATELET COUNT, AUTOMATED 72 10^3/uL (150-450)
[2023-06-09 07:12] LABS: BLOOD UREA NITROGEN 24 MG/DL (9-23); CALCIUM LEVEL 8.6 MG/DL (8.3-10.6); CARBON DIOXIDE LEVEL 21 MMOL/L (20-31); CHLORIDE LEVEL 105 MMOL/L (98-107); CREATININE FOR GFR 0.92 MG/DL (0.70-1.30); GLOMERULAR FILTRATION RATE > 60.0 (>42); GLUCOSE, FASTING 170 MG/DL (74-106); POTASSIUM SERUM 4.5 MMOL/L (3.5-5.1); SODIUM LEVEL 135 MMOL/L (136-145)
[2023-06-09] MEDS: TIOTROPIUM INHALER/CAPSULE (SPIRIVA) INH SCH (08:07)
[2023-06-09] MEDS: SYMBICORT 160/4.5MCG INHALER 6GM INH SCH ×2 (08:07→19:46)
[2023-06-09 08:19] VITALS: BP 117/69; TEMP 97.1; O2SAT 95
[2023-06-09] MEDS: INSULIN LISPRO (NovoLOG) PER UNIT SC SCH ×4 (08:19→20:36)
[2023-06-09] MEDS: ASPIRIN 81MG ENTERIC TABLET PO SCH (08:19)
[2023-06-09] MEDS: ROSUVASTATIN 10 MG TAB (CRESTOR) PO SCH (08:19)
[2023-06-09] MEDS: SITagliptin 50 MG TAB (JANUVIA) PO SCH (08:20)
[2023-06-09] MEDS: OMEPRAZOLE 20MG CAP PO SCH (08:20)
[2023-06-09] MEDS: MAGNESIUM OXIDE 400MG TAB (MAG-OX) PO SCH (08:20)
[2023-06-09 08:22] LABS: APPEARANCE, URINE CLEAR (CLEAR); BACTERIA, URINE AUTO NEGATIVE (NEGATIVE); BILIRUBIN, URINE AUTO NEGATIVE (NEGATIVE); BLOOD, URINE BLOOD NEGATIVE (NEGATIVE); COLOR, URINE YELLOW (YELLOW); GLUCOSE, URINE (UA) AUTO 3+ mg/dL (NEGATIVE); KETONE, URINE AUTO NEGATIVE (NEGATIVE); LEUKOCYTE ESTERASE, URINE AUTO NEGATIVE (NEGATIVE); NITRITE, URINE AUTO NEGATIVE (NEGATIVE); PROTEIN, URINE AUTO NEGATIVE (NEGATIVE); RBC, URINE AUTO 0 /HPF (0-3); SPECIFIC GRAVITY URINE AUTO 1.023 (1.002-1.035); SQUAMOUS EPITHELIAL CELL UR AU 0 /HPF (0-6); UROBILINOGEN, URINE AUTO 0.2 mg/dL (0.0-2.0); WBC, URINE AUTO 1 /HPF (0-3)
[2023-06-09 12:00] VITALS: BP 116/77; TEMP 97.6; O2SAT 93
[2023-06-09] MEDS: DOXYCYCLINE HYCLATE 100MG TABLET PO SCH ×2 (14:46→20:36)
[2023-06-09 16:00] VITALS: BP 101/61; TEMP 97.6; O2SAT 90
[2023-06-09 20:00] VITALS: BP 104/68; TEMP 97.5; O2SAT 96
[2023-06-10] VITALS (8 sets, daily range): BP systolic 100–120; BP diastolic 60–83; TEMP 97.3–97.6; O2SAT 89–95
[2023-06-10] MEDS: ALBUTEROL SULFATE 2.5MG/0.5ML INH NEB SOLN NEB SCH ×4 (03:32→15:30)
[2023-06-10] MEDS: cefTRIAXone SOD 2 GM in D5W MINI-BAG PLUS 50 ML IV SCH (04:44)
[2023-06-10 05:12] LABS: BASO % 0.2 % (0.0-1.0); EOS % 0.1 % (0.0-3.0); HEMATOCRIT 35.9 % (42.0-52.0); HEMOGLOBIN 11.9 g/dl (13.5-17.5); LYMPH # 1.2 10^3/uL (1.5-5.0); LYMPH % 15.4 % (24.0-44.0); MEAN CORPUSCULAR HEMOGLOBIN 30.6 pg (27.0-33.0); MEAN CORPUSCULAR HGB CONC 33.1 g/dl (32.0-36.5); MEAN CORPUSCULAR VOLUME 92.3 fl (80.0-96.0); MONO # 0.7 10^3/uL (0.0-0.8); MONO % 8.8 % (2.0-8.0); PLATELET COUNT, AUTOMATED 103 10^3/uL (150-450); RED BLOOD COUNT 3.89 10^6/uL (4.30-6.10); WHITE BLOOD COUNT 8.1 10^3/uL (4.0-10.0)
[2023-06-10 05:32] LABS: BLOOD UREA NITROGEN 26 MG/DL (9-23); CALCIUM LEVEL 9.1 MG/DL (8.3-10.6); CARBON DIOXIDE LEVEL 24 MMOL/L (20-31); CHLORIDE LEVEL 105 MMOL/L (98-107); CREATININE FOR GFR 0.91 MG/DL (0.70-1.30); GLOMERULAR FILTRATION RATE > 60.0 (>42); GLUCOSE, FASTING 129 MG/DL (74-106); POTASSIUM SERUM 4.2 MMOL/L (3.5-5.1); SODIUM LEVEL 138 MMOL/L (136-145)
[2023-06-10] MEDS: SYMBICORT 160/4.5MCG INHALER 6GM INH SCH ×2 (08:17→19:39)
[2023-06-10] MEDS: TIOTROPIUM INHALER/CAPSULE (SPIRIVA) INH SCH (08:17)
[2023-06-10] MEDS: ROSUVASTATIN 10 MG TAB (CRESTOR) PO SCH (08:52)
[2023-06-10] MEDS: ASPIRIN 81MG ENTERIC TABLET PO SCH (08:52)
[2023-06-10] MEDS: OMEPRAZOLE 20MG CAP PO SCH (08:52)
[2023-06-10] MEDS: SITagliptin 50 MG TAB (JANUVIA) PO SCH (08:52)
[2023-06-10] MEDS: MAGNESIUM OXIDE 400MG TAB (MAG-OX) PO SCH (08:52)
[2023-06-10] MEDS: DOXYCYCLINE HYCLATE 100MG TABLET PO SCH ×2 (08:52→22:00)
[2023-06-10] MEDS: INSULIN LISPRO (NovoLOG) PER UNIT SC SCH ×4 (08:56→21:00)
[2023-06-10] MEDS ORDERED: ISOVUE-370 76% 100ML VIAL As Ordered ONE (10:09)
[2023-06-10] MEDS: methylPREDNISolone 40MG 1ML VIAL IV SCH ×2 (10:50→22:00)
[2023-06-10] MEDS ORDERED: HEPARIN SOD (PORCINE) 5000UNITS/ML 1ML VIAL/SYRINGE IV ONE (11:05)
[2023-06-10] MEDS ORDERED: HEPARIN SOD (PORCINE) 5000UNITS/ML 1ML VIAL/SYRINGE IV PRN (11:05)
[2023-06-10] MEDS: HEPARIN DRIP 25,000 UNITS in IV 1 EA IV SCH (11:53)
[2023-06-10] MEDS: allopurinoL 300 MG TAB PO SCH (14:37)
[2023-06-10 17:59] LABS: INR 1.28; PROTHROMBIN TIME 15.6 SECONDS (12.5-14.5)
[2023-06-10 18:01] LABS: PARTIAL THROMBOPLASTIN TIME 75.5 SECONDS (24.8-34.2)
[2023-06-10] MEDS: IPRATROPIUM 0.5MG/ALBUTEROL 2.5MG INH SOL UD 3ML (DUONEB) NEB SCH (19:39)
[2023-06-11] VITALS (20 sets, daily range): BP systolic 112–132; BP diastolic 59–71; TEMP 96.8–98.1; O2SAT 89–95
[2023-06-11] MEDS: IPRATROPIUM 0.5MG/ALBUTEROL 2.5MG INH SOL UD 3ML (DUONEB) NEB SCH ×4 (01:43→19:43)
[2023-06-11] MEDS: HEPARIN DRIP 25,000 UNITS in IV 1 EA IV SCH ×2 (03:40→23:20)
[2023-06-11] MEDS: cefTRIAXone SOD 1 GM in D5W MINI-BAG PLUS 50 ML IV SCH (04:56)
[2023-06-11 05:54] LABS: HEMATOCRIT 36.5 % (42.0-52.0); HEMOGLOBIN 11.9 g/dl (13.5-17.5); MEAN CORPUSCULAR HGB CONC 32.6 g/dl (32.0-36.5); MEAN CORPUSCULAR VOLUME 91.9 fl (80.0-96.0); RED BLOOD COUNT 3.97 10^6/uL (4.30-6.10); WHITE BLOOD COUNT 6.9 10^3/uL (4.0-10.0)
[2023-06-11 05:57] LABS: PLATELET COUNT, AUTOMATED 88 10^3/uL (150-450)
[2023-06-11 06:17] LABS: BLOOD UREA NITROGEN 20 MG/DL (9-23); CALCIUM LEVEL 8.9 MG/DL (8.3-10.6); CARBON DIOXIDE LEVEL 23 MMOL/L (20-31); CHLORIDE LEVEL 104 MMOL/L (98-107); CREATININE FOR GFR 0.79 MG/DL (0.70-1.30); GLOMERULAR FILTRATION RATE > 60.0 (>42); GLUCOSE, FASTING 204 MG/DL (74-106); POTASSIUM SERUM 4.4 MMOL/L (3.5-5.1); SODIUM LEVEL 137 MMOL/L (136-145)
[2023-06-11] MEDS: SYMBICORT 160/4.5MCG INHALER 6GM INH SCH ×2 (07:33→19:42)
[2023-06-11] MEDS: TIOTROPIUM INHALER/CAPSULE (SPIRIVA) INH SCH (07:34)
[2023-06-11 08:09] LABS: BASO % 0.1 % (0.0-1.0); LYMPH # 0.5 10^3/uL (1.5-5.0); LYMPH % 7.5 % (24.0-44.0); MONO # 0.2 10^3/uL (0.0-0.8); MONO % 2.2 % (2.0-8.0); NEUTROPHILS % 89.9 % (36.0-66.0)
[2023-06-11] MEDS ORDERED: ENOXAPARIN 40MG/0.4ML SYRINGE (J1650 PER 10MG) SC SCH (09:00)
[2023-06-11] MEDS: OMEPRAZOLE 20MG CAP PO SCH (09:52)
[2023-06-11] MEDS: SITagliptin 50 MG TAB (JANUVIA) PO SCH (09:53)
[2023-06-11] MEDS: ROSUVASTATIN 10 MG TAB (CRESTOR) PO SCH (09:53)
[2023-06-11] MEDS: DOXYCYCLINE HYCLATE 100MG TABLET PO SCH ×2 (09:53→22:01)
[2023-06-11] MEDS: MAGNESIUM OXIDE 400MG TAB (MAG-OX) PO SCH (09:53)
[2023-06-11] MEDS: allopurinoL 300 MG TAB PO SCH (09:53)
[2023-06-11] MEDS: methylPREDNISolone 40MG 1ML VIAL IV SCH ×2 (09:53→22:01)
[2023-06-11] MEDS: ASPIRIN 81MG ENTERIC TABLET PO SCH (09:53)
[2023-06-11] MEDS: INSULIN LISPRO (NovoLOG) PER UNIT SC SCH ×4 (09:54→22:02)
[2023-06-11] MEDS ORDERED: FUROSEMIDE 40MG/4ML VIAL IV ONE (15:45)
[2023-06-12] VITALS (9 sets, daily range): BP systolic 119–126; BP diastolic 58–80; TEMP 96.9–97.4; O2SAT 83–97
[2023-06-12] MEDS: IPRATROPIUM 0.5MG/ALBUTEROL 2.5MG INH SOL UD 3ML (DUONEB) NEB SCH ×2 (01:49→07:57)
[2023-06-12] MEDS: cefTRIAXone SOD 1 GM in D5W MINI-BAG PLUS 50 ML IV SCH (04:35)
[2023-06-12 06:42] LABS: BASO % 0.1 % (0.0-1.0); HEMATOCRIT 37.2 % (42.0-52.0); HEMOGLOBIN 12.3 g/dl (13.5-17.5); LYMPH # 0.6 10^3/uL (1.5-5.0); LYMPH % 6.4 % (24.0-44.0); MEAN CORPUSCULAR HEMOGLOBIN 30.6 pg (27.0-33.0); MEAN CORPUSCULAR HGB CONC 33.1 g/dl (32.0-36.5); MEAN CORPUSCULAR VOLUME 92.5 fl (80.0-96.0); MONO # 0.4 10^3/uL (0.0-0.8); MONO % 3.8 % (2.0-8.0); NEUTROPHILS # 8.5 10^3/uL (1.5-8.5); NEUTROPHILS % 89.2 % (36.0-66.0); RED BLOOD COUNT 4.02 10^6/uL (4.30-6.10); WHITE BLOOD COUNT 9.5 10^3/uL (4.0-10.0)
[2023-06-12 06:44] LABS: PLATELET COUNT, AUTOMATED 89 10^3/uL (150-450)
[2023-06-12 07:03] LABS: BLOOD UREA NITROGEN 24 MG/DL (9-23); CALCIUM LEVEL 9.2 MG/DL (8.3-10.6); CARBON DIOXIDE LEVEL 29 MMOL/L (20-31); CHLORIDE LEVEL 101 MMOL/L (98-107); CREATININE FOR GFR 0.83 MG/DL (0.70-1.30); GLOMERULAR FILTRATION RATE > 60.0 (>42); GLUCOSE, FASTING 217 MG/DL (74-106); MAGNESIUM LEVEL 1.6 MG/DL (1.8-2.4); POTASSIUM SERUM 4.5 MMOL/L (3.5-5.1); SODIUM LEVEL 137 MMOL/L (136-145)
[2023-06-12] MEDS: SYMBICORT 160/4.5MCG INHALER 6GM INH SCH ×2 (07:52→19:43)
[2023-06-12] MEDS: TIOTROPIUM INHALER/CAPSULE (SPIRIVA) INH SCH (07:52)
[2023-06-12] MEDS ORDERED: LORazepam 2 MG/ML 1ML VIAL IV STA (08:54)
[2023-06-12] MEDS: MIRALAX *UNIT DOSE* 17GM PACKET PO SCH (09:00)
[2023-06-12] MEDS: MAG SULF 1GM/100ML (MAG RUN) 1 GM in IV 1 EA IV SCH ×2 (09:00→09:24)
[2023-06-12] MEDS ORDERED: MOM 30ML SUSPENSION UDC PO SCH (09:00)
[2023-06-12] MEDS ORDERED: SENNA 8.6 MG TAB (SENOKOT) PO SCH (09:00)
[2023-06-12] MEDS: methylPREDNISolone 40MG 1ML VIAL IV SCH (09:24)
[2023-06-12] MEDS: ROSUVASTATIN 10 MG TAB (CRESTOR) PO SCH (09:25)
[2023-06-12] MEDS: MAGNESIUM OXIDE 400MG TAB (MAG-OX) PO SCH (09:25)
[2023-06-12] MEDS: allopurinoL 300 MG TAB PO SCH (09:25)
[2023-06-12] MEDS: ASPIRIN 81MG ENTERIC TABLET PO SCH (09:25)
[2023-06-12] MEDS: SITagliptin 50 MG TAB (JANUVIA) PO SCH (09:25)
[2023-06-12] MEDS: OMEPRAZOLE 20MG CAP PO SCH (09:25)
[2023-06-12] MEDS: DOXYCYCLINE HYCLATE 100MG TABLET PO SCH (09:25)
[2023-06-12 09:34] LABS: ABG BASE EXCESS -2.9 (-2.0-2.0); ABG HCO3 20.7 MMOL/L (22.0-26.0); ABG O2 SATURATION 98.3 % (95.0-99.0); ABG PARTIAL PRESSURE CO2 32.8 mmHg (35.0-45.0); ABG PARTIAL PRESSURE O2 118.8 mmHg (75.0-100.0); ABG TOTAL CO2 21.7 MMOL/L (23.0-31.0); ABG pH (ARTERIAL) 7.418 UNITS (7.350-7.450)
[2023-06-12] MEDS: INSULIN LISPRO (NovoLOG) PER UNIT SC SCH (09:47)
[2023-06-12] MEDS ORDERED: LORazepam 1 MG TAB PO PRN (10:55)
[2023-06-12] MEDS ORDERED: IPRATROPIUM 0.5MG/ALBUTEROL 2.5MG INH SOL UD 3ML (DUONEB) NEB PRN (10:55)
[2023-06-12] MEDS ORDERED: ONDANSETRON 4MG ORAL DISINTEGRATING TAB PO PRN (10:55)
[2023-06-12] MEDS ORDERED: HYOSCYAMINE SULFATE 0.125 MG SUBL TABLET PO PRN (10:55)
[2023-06-12] MEDS: MORPHINE 10MG/0.5ML ORAL CONCENTRATE SOLUTION U/D SL PRN (13:45)
[2023-06-13] MEDS: MORPHINE 10MG/0.5ML ORAL CONCENTRATE SOLUTION U/D SL PRN (04:37)
[2023-06-13] MEDS: TIOTROPIUM INHALER/CAPSULE (SPIRIVA) INH SCH (07:50)
[2023-06-13] MEDS: SYMBICORT 160/4.5MCG INHALER 6GM INH SCH (07:51)
[2023-06-13] MEDS: OMEPRAZOLE 20MG CAP PO SCH (09:16)
[2023-06-13] MEDS: MIRALAX *UNIT DOSE* 17GM PACKET PO SCH (09:16)
[2023-06-13] MEDS ORDERED: MORP1SOL5 PO (11:52)
[2023-06-13] MEDS ORDERED: ATIV1TAB10 PO (11:52)
[2023-06-13] MEDS ORDERED: HYOS125TA PO (11:52)
== END 2023-06-13 13:55 | disposition hospice, home (50) | DRG 175 ==
LOC: M ED 20:09 → EDBD 20:09 → M ED INP 06-09 00:14 → ENRESERV 06-09 01:34 → M PCU 06-09 02:53
PROVIDERS: ADMIT Internal Medicine Nephrology; ATTEND Internal Medicine
PROC: B246ZZZ Ultrasonography of Right and Left Heart (ICD-10-PCS; principal; 2023-06-10)
DX: I26.99 Other pulmonary embolism without acute cor pulmonale (principal); J18.9 Pneumonia, unspecified organism; J96.21 Acute and chronic respiratory failure with hypoxia; J44.0 Chronic obstructive pulmonary disease with (acute) lower respiratory infection; E87.20 Acidosis, unspecified; R04.2 Hemoptysis; J44.1 Chronic obstructive pulmonary disease with (acute) exacerbation; I27.20 Pulmonary hypertension, unspecified; J84.10 Pulmonary fibrosis, unspecified; E11.9 Type 2 diabetes mellitus without complications; I25.10 Atherosclerotic heart disease of native coronary artery without angina pectoris; I10 Essential (primary) hypertension; K21.9 Gastro-esophageal reflux disease without esophagitis; E78.5 Hyperlipidemia, unspecified; M10.9 Gout, unspecified; M54.16 Radiculopathy, lumbar region; D69.6 Thrombocytopenia, unspecified; Z96.641 Presence of right artificial hip joint; Z85.828 Personal history of other malignant neoplasm of skin; Z99.81 Dependence on supplemental oxygen; Z90.49 Acquired absence of other specified parts of digestive tract; Z79.82 Long term (current) use of aspirin; Z79.84 Long term (current) use of oral hypoglycemic drugs; Z79.899 Other long term (current) drug therapy; Z88.5 Allergy status to narcotic agent; Z91.018 Allergy to other foods